=== PATIENT | male | born 1940 | race Caucasian/White ===

== ENCOUNTER 2017-06-29 19:14 | Emergency (ER) | payer MEDICARE, OTHER ==
[~2017-06-29] VITALS: Ht 175.3 cm; Wt 88.9 kg
--- OUTSIDE RECORDS SUMMARY | ~2017-06-29 | XMS | Clinical Summary ---
Demographics + + + | Address | [address] [place] [address] | | | [place] [address] | + + + | Home Phone | | + + + | Preferred Language | Unknown | + + + | Marital Status | | + + + | Rastafari Affiliation | 1077 | + + + | Race | Unknown | + + + | Ethnic Group | Unknown | + + + Author + + + | Author | [facility] | | | and [place] | + + + | Organization | [facility] | | | and [...] Team Providers + +------+ + | Care Ripsaw Grader Name | Role | Phone | + +------+ + | Stephane Thurman | PP | | + +------+ + Allergies + + + + + + | Active Allergy | Reactions | Severity | Noted | Comments | | | | | Date | | + + + + + + | Penicillins | Rash | Low | 08/16/19 | | | | | | 15 | | + + + + + + Current Medications + + +-------+---------+------+------+-------+ | Prescription | Sig. | Disp. | Refills | Star | End | Statu | | | | | | t | Date | s | | | | | | Date | | | + + +-------+---------+------+------+-------+ | clopidogrel | Take 75 mg by mouth | | | | | Activ | | (PLAVIX) 75 mg | Daily. | | | | | e | | tablet | | | | | | | + + +-------+---------+------+------+-------+ | omeprazole | Take 40 mg by mouth | | | | | Activ | | (PRILOSEC) 40 MG | every morning | | | | | e | | capsule | (before breakfast). | | | | | | + + +-------+---------+------+------+-------+ | metoprolol | Take 25 mg by mouth | | | | | Activ | | succinate | Daily. | | | | | e | | (TOPROL-XL) 25 mg 24 | | | | | | | | hr tablet | | | | | | | + + +-------+---------+------+------+-------+ | levothyroxine | Take 125 mcg by | | | | | Activ | | (SYNTHROID, | mouth every morning | | | | | e | | LEVOTHROID) 125 mcg | (before breakfast). | | | | | | | tablet | | | | | | | + + +-------+---------+------+------+-------+ | rosuvastatin | Take 20 mg by mouth | | | | | Activ | | (CRESTOR) 20 mg | nightly. | | | | | e | | tablet | | | | | | | + + +-------+---------+------+------+-------+ | aspirin 81 mg | Take 81 mg by mouth | | | | | Activ | | chewable tablet | Daily. | | | | | e | + + +-------+---------+------+------+-------+ | docusate-senna | Take 1 tablet by | | | | | Activ | | (SENOKOT-S) 50-8.6 | mouth Daily. | | | | | e | | mg per tablet | | | | | | | + + +-------+---------+------+------+-------+ Active Problems + + + | Problem | Noted Date | + + + | Prostate CA (HCC) | 08/16/2014 | + + + | Hypothyroid | 08/16/2014 | + + + | Abnormal radionuclide heart study | 04/05/2014 | + + + | Arteriosclerosis of coronary artery | 03/20/2014 | + + + + + | Overview: Overview: JERED of RCA in 1995, now with exertional | | chest discomfort. ECG is unchanged per Dr. Thurman. | + + Social History + + + [...] + +---------+ + | Alcohol Use | Drinks/We | oz/Week | Comments | | | ek | | | + + +---------+ + | Yes | | | less than weekly | + + +---------+ + + + + | Sex Assigned at | Date Recorded | | | | + + + | Not on file | | + + + Last Filed Vital Signs + + + + | Vital Sign | Reading | Time Taken | + + + + | Blood Pressure | 107/70 | 08/16/2014 1330 PDT | + + + + | Pulse | 65 | 08/16/2014 1330 PDT | + + + + | Temperature | 36.6 C (97.9 F) | 08/16/2014 1136 PDT | + + + + | Respiratory Rate | 16 | 08/16/2014 1330 PDT | + + + + | Oxygen Saturation | 92% | 08/16/2014 1330 PDT | + + + + | Inhaled Oxygen | - | - | | Concentration | | | + + + + | Weight | 87.5 kg (192 lb 14.4 | 08/16/2014 0822 PDT | | | oz) | | + + + + | Height | 175.3 cm (5' 9") | 08/16/2014821 PDT | + + + + | Body Mass Index | 28.49 | 08/16/2014821 PDT | + + + + Plan of Treatment + + + + + | Health Maintenance | Due Date | Last Done | Comments | + + + + + | Vaccine: | | | | | Dtap/Tdap/Td (1 - | 2 | | | | Tdap) | | | | + + + + + | COLON CANCER | | | | | SCREENING | 3 | | | | (COLONOSCOPY EVERY | | | | | 10 YEARS 50-75) | | | | + + + + + | Vaccine: | | | | | Pneumococcal 65+ | 8 | | | | High/Highest Risk (1 | | | | | of 2 - PCV13) | | | | + + + + + | Vaccine: Influenza | | | | | (Season Ended) | 8 | | | + + + + + Implants + +------+--------+ +--------+--------+--------+ | Implanted | Type | Area | Manufacture | Device | Expira | Model | | | | | r | | tion | / | | | | | | Identi | Date | Serial | | | | | | fier | | / Lot | + +------+--------+ +--------+--------+--------+ | Jeffery Sidhu [id number] | | Right: | [employer] | | 04/27/ | AR-260 | | - [id number]: Qty: 1 | | | - ARTX | | 2017 | 0SBS-5 | | on 08/16/2014 by Norbert, | | Should | | | | / | | Sam Schultz DO | | er | | | | /[id number] | | | | | | | | 76 | + +------+--------+ +--------+--------+--------+ | [place] [employer] 3.5x19 | | Right: | [employer] | | 03/27/ | AR-192 | | - [id number]: Qty: 1 | | | - ARTX | | 2016 | 6B / | | on 08/16/2014 by Norbert, | | Should | | | | /[id number] | | Sam Schultz DO | | er | | | | 07 | + +------+--------+ +--------+--------+--------+ Results Not on filefrom Last 3 Months Insurance + +--------+ +--------+ +---------+ | Payer | Benefi | Subscriber | Type | Phone | Address | | | t Plan | ID | | | | | | / | | | | | | | Group | | | | | + +--------+ +--------+ +---------+ | [employer] | TRANSA | xxxxxxxxx | Indemn | | | | INSURANCE | MERICA | | ity | | | | | LIFE | | | | | | | MS | | | | | + +--------+ +--------+ +---------+ | MEDICARE | MEDICA | xxxxxxxxxx | Medica | [phone] | | | RE | | re | [phone] | | | | PART A | | | | | | | AND B | | | | | + +--------+ +--------+ +---------+ + +--------+ +--------+ + + | Guarantor Name | Accoun | Relation to | Date | Phone | Billing Address | | | t Type | Patient | of | | | | | | | | | | + +--------+ +--------+ + + | JONATHAN LEVINE | Person | Self [birth year] | Home: | [address] [place] [address] | | | al/Behzad | | 1941 | [phone] | [place] | | | mitul | | | [phone] | + +--------+ +--------+ + +
--- OUTSIDE RECORDS SUMMARY | ~2017-06-29 | XMS | Clinical Summary ---
Demographics + + + | Address | [address] [place] [address] | | | [place] [address] | + + + | Home Phone | | + + + | Preferred Language | Unknown | + + + | Marital Status | | + + + | Hoahaoism Affiliation | 1077 | + + + | Race | Unknown | + + + | Ethnic Group | Unknown | + + + Author + + + | Author | [facility] | | | and [place] | + + + | Organization | [facility] | | | and Tono[place] [...] Team Providers + +------+ + | Care Immersion Metal Cleaner Name | Role | Phone | + [...] | + +------+--------+ +--------+--------+--------+ | Jeffery Sidhu [id number] | | Right: | [employer] | | 04/27/ | AR-260 | | - [id number]: Qty: 1 | | | - ARTX | | 2017 | 0SBS-5 | | on 08/16/2014 by Norbert, | | Should | | | | / | | Sam Schultz DO | | er | | | | /[id number] | | | | | | | | 76 | + +------+--------+ +--------+--------+--------+ | [place] [employer] 3.5x19 | | Right: | [employer] | | 03/27/ | AR-192 | | - [id number]: Qty: 1 | | | - ARTX | | 2016 | 6B / | | on 08/16/2014 by Norbert, | | Should | | | | /[id number] | | Sam Schultz DO | | [...] Self | [birth year] | Home: | [address] [place] [address] | | | al/Behzad | | 1941 | [phone] | [place] | | | mitul | | | [phone] | + +--------+ +--------+ + +
[~2017-06-29 19:14] MED LIST: ASPIRIN EC325 MG PO; CITRUCEL479 GM PO; CLOPIDOGREL75 MG PO; CRESTOR20 MG PO; LEVOTHYROXINE125 MCG PO; LISINOPRIL10 MG PO; METOPROLOL SUCC25 MG PO; MICARDIS HCT 81 EACH PO; OMEPRAZOLE40 MG PO; SENNA8.6 MG PO; VITAMIN B COMP1 EACH PO
[2017-06-29] MEDS ORDERED: NITROGLYCERIN0.4 MG SL (19:38)
[2017-06-29] MEDS ORDERED: RANITIDINE HCL150 MG PO (19:38)
[2017-06-29] MEDS ORDERED: PRAVASTATIN SOD40 MG PO (19:38)
== END 2017-06-29 23:00 | disposition home or self-care (01) ==
LOC: ED 19:14
DX: K52.9 Noninfective gastroenteritis and colitis, unspecified (principal); I10 Essential (primary) hypertension; Z87.891 Personal history of nicotine dependence; Z88.0 Allergy status to penicillin; Z79.899 Other long term (current) drug therapy; Z79.82 Long term (current) use of aspirin
CPT/HCPCS: 80053; 83690; 85025; 96374; 96375; 96376; 99283; J2405; J2550; J7030

== ENCOUNTER 2017-07-12 09:20 | Inpatient (IN) | payer MEDICARE, OTHER ==
[~2017-07-12] VITALS: Ht 175.3 cm; Wt 93.9 kg
[~2017-07-12 09:20] MED LIST changes: +NITROGLYCERIN0.4 MG SL; +PRAVASTATIN SOD40 MG PO; +RANITIDINE HCL150 MG PO
--- NOTE | 2017-07-12 12:50 | NUR ---
PT ARRIVED TO UNIT VIA STRETCHER FROM ED. PRESENT AT BEDSIDE. PT A&O X3. NO ACUTE DISTRESS NOTED. AFEBRILE. PT NOTED TO BE HYPOTENSIVE, 1L BOLUS LR ORDERED AND GIVEN. 2 GM MAG HUNG AT THIS TIME. UNIT INTAKE QUESTIONS ANSWERED BY PT. PT TO BE SENT TO PACU FOR SCOPE.
--- NOTE | 2017-07-12 13:30 | NUR ---
PT TAKEN BY BED TO DAY SUGERY AREA
--- NOTE | 2017-07-12 13:50 | EKG ---
[facility] [address] [facility] [place], [place] [address] Signed Sinus tachycardia with premature atrial complexes Right bundle branch block Abnormal ECG No previous ECGs available Confirmed by KRISTIAN IRENE MD ([id number]) on 07/12/2017 1:50:10 PM Electronically Signed By: KRISTIAN IRENE MD 07/12/17 1350 PATIENT NAME: ELI HONG Electrocardiogram DATE OF : 44 PHYSICIAN: KRISTIAN IRENE MD REPORT #: [id number] REPORT IS CONFIDENTIAL AND NOT TO BE RELEASED WITHOUT AUTHORIZATION
--- NOTE | 2017-07-12 15:52 | NUR ---
07/12/17 1552 Alexandra Pike PATIENT ARRIVED TO PACU. PATIENT AWAKE, 4L02 FOR 97% SATS. IV MAG WITH LR INFUSING TO IV IN LEFT ARM. IV PROTONIX INFUSING TO IV IN RIGHT ARM.
--- NOTE | 2017-07-12 19:24 | NUR ---
PT UP TO BSC WITH MINIMAL ASSIST. HAD LARGE BLACK TARRY SEMI SOFT STOOL, RETURNED TO BED AND RESTING ON RIGHT SIDE.
--- NOTE | 2017-07-12 19:45 | NUR ---
ASSISTED PATIENT TO BEDSIDE COMODE. NO COMPLAINTS OF DIZZINESS. NOW RESTING IN BED, BREATHING IS EVEN AND UNLABORED. DENIES FURTHER NEEDS AT THIS TIME. CALL LIGHT WITHIN REACH, FAMILY AT BEDSIDE.
--- NOTE | 2017-07-12 21:57 | NUR ---
ASSISTED PATIENT TO BEDSIDE COMODE WITH SBA. NOW RESTING IN BED, BREATHING IS EVEN AND UNLABORED. DENIES FUTHER NEEDS AT THIS TIME. CALL LIGHT WITHIN REACH.
--- NOTE | 2017-07-12 23:16 | NUR ---
UPT TO BSC TO VOID. VOIDED IN COMMODE AND ON FLOOR. DENIES DIZZYNESS.
--- NOTE | 2017-07-13 01:00 | NUR ---
UPDATED DR. VERDUGO REGARDING PATIENT'S H&H RESULTS, RECEIVED ORDER FOR ONE UNIT PRBC.
--- NOTE | 2017-07-13 02:00 | NUR ---
BLOOD PRODUCTS STARTED WITH SECOND RN VERIFICATION.
--- NOTE | 2017-07-13 02:15 | NUR ---
VITALS RE-CHECKED, VITALS ARE STABLE, NO SIGNS OF BLOOD PRODUCT ADMINISTRATION REACTION. PATIENT RESTING IN BED, BREATHING IS EVEN AND UNLABORED. DENIES NEEDS AT THIS TIME. CALL LIGHT WITHIN REACH.
--- NOTE | 2017-07-13 04:15 | NUR ---
BLOOD PRODUCT DONE, PATIENT RESTING IN BED, BREATHING IS EVEN AND UNLABORED. DENIES NEEDS AT THIS TIME. CALL LIGHT WITHIN REACH.
--- NOTE | 2017-07-13 05:38 | NUR ---
ASSISTED PATIENT USE URINAL AT BEDSIDE. DENIES FURTHER NEEDS. NOW RESTING IN BED, BREATHING IS EVEN AND UNLABORED. CALL LIGHT WITHIN REACH.
--- NOTE | 2017-07-13 08:24 | NUR ---
PT AWAKE, RESTING IN BED, STOOD TO VOID 300 MLS CLEAR YELLOW URINE. ASSESSMENT COMPLETED. TRANSFERRED TO CHAIR SBP DROPPED TO 70, HR 103 - NO C/O. PT RETURNED TO BED BP 92/50, HR 99. PT RESTING IN BED WATCHING TV. AM MEDS GIVEN
--- NOTE | 2017-07-13 08:40 | NUR ---
PT STATES "I DON'T FEEL GOOD". HOB FLAT AND SBP NOW 90. Fang BLANTON RN, Fang YOU RN, Antolin BURGESSA AND DR. VERDUGO HERE. NS BOLUS STARTED. PT DIAPHORETIC AND PLACED IN [place]G POSITION. PT STATES FEELING BETTER. LAB HERE FOR H & H DRAW.
--- NOTE | 2017-07-13 11:09 | NUR ---
0930 PRE BLOOD TRANSFUSION BP COMPLETED AND FIRST UNIT PRBC STARTED. PT ORLY FAIR. BLOOD INCREASED TO COMPLETE IN ONE HOUR. BLOOD PRESSURES TAKEN Q 10 MINS. SYSTOLIC PRESSURES 70 - 80'S. DR. GORMAN IN TO ASSESS PT. AND CONSENT SIGNED BY . ONE UNIT FFP STARTED AND SURGERY PERSONEL HERE, PT TRANSFERRED TO [facility] WITH 3 PERSON ASSIST AND TO OR FOR UPPER SCOPE.
--- NOTE | 2017-07-13 12:39 | NUR ---
07/13/17 1239 Camille Shanks PATIENT ARRIVED FROM OR. UNIT OF BLOOD INFUSING. 6L 02 ON FOR 100% SATS. PATIENT DENIES PAIN OR NAUSEA.
--- NOTE | 2017-07-13 12:56 | CONS ---
[facility] [address] [place], [place] [address] Signed DATE OF CONSULTATION: 07/12/2017 PROBLEM: Melena with hypotension. HISTORY: This 76-year-old white man is well known to me from the past having undergone colonoscopy previously. In the past 2-3 days, he has had dark black tarry stool. He presented to the emergency room where he had persistent blood tarry stool per rectum and was evaluated and found to have hematocrit of 24.9. He has had no associated hematemesis or abdominal pain. He does note a prior history of a "peptic ulcer" at age 20, number of years ago obviously manifesting as hematemesis. He takes no medications for ulcer treatment and has no underlying known reflux problem, though I do note that he has been taking Zantac 150 mg p.o. daily. His other medicines include aspirin, Synthroid, lisinopril, metoprolol, nitroglycerin sublingual for chest pain, and pravastatin. He has no family history of esophageal or stomach cancer and no family history of colon cancer that he is aware of. He is known to me from the past for colonoscopy last having colonoscopy on March 10, 2016, for rectal bleeding and Plavix use related to coronary stenting in the previous year. He only showed diverticular changes at that time and no evidence of hemorrhoids and 4 very small polyps. He denies any dysphagia and he has had no hematemesis as previously described. His course in the emergency room have shown him to have hypotension at one time with a pressure of 60, though he presented with normal vital signs and not hypotensive. The patient since undergone transfusion of 2 units of packed red cells and crystalloid solution has been given. Notes were reviewed from Dr. Irene confirming his underlying history of coronary artery disease and stent use as well as daily use of aspirin 81 mg daily. It is also noted that about 2 weeks ago he had nausea and upset stomach, for which he took Pepto-Bismol. Dark stools were noted at that time, possibly related to the Pepto-Bismol in hindsite, perhaps not. PHYSICAL EXAMINATION: GENERAL: Pleasant white man, who does not look to be in severe distress and has no diaphoresis. He is alert and oriented, accompanied by his . NECK: His trachea is midline. Electronically Signed By: MARGARITA GORMAN MD 07/13/17 1256 PATIENT NAME: ELI HONG CONSULTATION DATE OF : 44 REPORT #: [id number] PHYSICIAN: MARGARITA GORMAN MD PCP: ROSS QUARLES MD REPORT IS CONFIDENTIAL AND NOT TO BE RELEASED WITHOUT AUTHORIZATION [facility] [address] [place], [place] [address] Signed CHEST: Clear. HEART: Regular without murmur. Pulse is only 88. His systolic pressure is 95. O2 saturation is 100% on 2 L nasal cannula. ABDOMEN: Soft and somewhat obese, but easily palpated. There is no ascites. There is no tenderness. There is no mass. LABORATORY DATA: Show initial hematocrit of 24.9, white count of 14.3, and platelets 382,000. Coag studies show an INR of 0.9. Chem profile shows a BUN elevated at 71, creatinine of 1.18, glucose is 157. Lactic acid is 1.9. Liver enzymes essentially normal. ASSESSMENT: It is presumed he may have an upper gastrointestinal source of bleeding due to the melena that he has demonstrated. He did have a hypotensive episode and has been transfused to at least 1 unit and possibly to have been given in addition to crystalloid solution. I have recommended an expedient upper endoscopy to better characterize the problem specifically to assess for peptic bleeding. If upper endoscopy is negative, then of course, this may represent bleeding from his diverticular disease, which was well known. The risks of bleeding, infection, cardiopulmonary complications, need for open procedure, and so forth were reviewed in detail. He understands and wished to proceed. We will plan for expedient upper endoscopy within the next hour or so. The patient has yet to transfer from the emergency room to the intensive care unit where he is intended to go. MD KLAUS Delacruz/MODL /[id number] cc: MD Ross Byrd MD Copies: KRISTIAN IRENE MD Electronically Signed By: MARGARITA GORMAN MD 07/13/17 1256 PATIENT NAME: ELI HONG CONSULTATION DATE OF : 44 REPORT #: [id number] PHYSICIAN: MARGARITA GORMAN MD PCP: ROSS QUARLES MD REPORT IS CONFIDENTIAL AND NOT TO BE RELEASED WITHOUT AUTHORIZATION [address] [address] Signed ROSS QUARLES MD ~ Electronically Signed By: MARGARITA GORMAN MD 07/13/17 1256 PATIENT NAME: ELI HONG CONSULTATION DATE OF : 44 REPORT #: [id number] PHYSICIAN: MARGARITA GORMAN MD PCP: ROSS QUARLES MD REPORT IS CONFIDENTIAL AND NOT TO BE RELEASED WITHOUT AUTHORIZATION
--- NOTE | 2017-07-13 12:56 | OR ---
[facility] [address] [place], [place] [address] Signed DATE OF OPERATION: 07/12/2017 SURGEON: Margarita Gorman MD PREOPERATIVE DIAGNOSES: 1. Melena, probable upper gastrointestinal bleeding. 2. Distant history of peptic ulcer (age 20). POSTOPERATIVE DIAGNOSIS: 1. Bleeding at 2nd portion of duodenum erosive ulcer. 2. Healing large bulbar ulcer (brumfield white base). 3. Bleeding mid gastric erosion. PROCEDURE: 1. Esophagogastroduodenoscopy with control of hemorrhage (epinephrine injection technique and hemoclip application x2 areas). 2. Biopsy of stomach for CLOtest. ANESTHESIA: Propofol infusion, Minoo Ramos CRNA INDICATION: This 76-year-old white man is a patient of Dr. Mcpherson and Dr. Lewis, and well known to me from the past having undergone colonoscopy. For the past few days, he has had increasing dark stools, and presents to the emergency room. He is noted to have hypotension at one point, a systolic pressure of 60. He has been transfused with blood. He had dark melena noted in the past 48 hours, but no abdominal pain per se. He has taken some nonsteroidal several weeks ago, but not excessively so. He is known to have had a bleeding ulcer at age 20 as manifested by hematemesis. He has no associated dysphagia. No family history of stomach, or esophageal cancer, and is admitted to undergo emergent upper endoscopy to assess for bleeding and control of it if capable. He understands risks of bleeding, infection, perforation of course, rebleeding and wished to proceed. FINDINGS: The esophagus and stomach proper showed no sign of blood. There was some fresh bleeding in the mid stomach near rugal folds which was a superficial erosion that was bleeding, and it was controlled with hemoclips. In the duodenum; however, there was marked inflammatory change. There was a large ulcer of the duodenal bulb with a brumfield white base which was healing with no sign of bleeding. However, in the 2nd portion was an Electronically Signed By: MARGARITA GORMAN MD 07/13/17 1256 PATIENT NAME: ELI HONG OPERATIVE REPORT DATE OF : 44 REPORT #: [id number] PHYSICIAN: MARGARITA GORMAN MD PCP: ROSS LEWIS MD REPORT IS CONFIDENTIAL AND NOT TO BE RELEASED WITHOUT AUTHORIZATION [facility] [address] [place], [place] [address] Signed area of visible vessel within the rows of non deep ulceration. This was controlled with hemoclips, and epinephrine solution injection. At conclusion, good hemostasis was noted in both the gastric and duodenal lesions. PROCEDURE: The patient was brought to the endoscopy suite and placed in lateral decubitus position, and given intravenous sedation with propofol infusional technique. He was in the left lateral position, and bite block was placed. An Olympus video upper endoscope was passed in the hypopharynx. The vocal cords were normal. Scope was passed in the esophagus. Throughout its length it was normal. Scope was passed through the stomach, and there was a small area of fresh bleeding, which did not appear to be the main source of the problem, and so the scope was passed to the antrum. The flexibility of the scope was prohibitive to passage into the duodenal bulb for some reason. The scope was changed out to a more frey upper endoscope. Once again, the scope was passed under direct visualization ultimately to the pylorus, which allowed for passage into the duodenum. Clearly, there was blood there. There was no sign of clot, however. The scope was passed ultimately to the 3rd portion where some fresh blood was noted to be oozing, and upon withdrawal of scope in the 2nd portion, essentially in the region of the ampulla, but not near it per se was an area that was heaped up and looked actually like a vessel in the middle of the lumen. With irrigation, it seemed not to go away. Hemoclips were applied to the base of this lesion, which eventually flaked off and this represented more likely blood and clot associated with a vessel from an erosion there. With the clot/vessel lesion now freed, one could see ongoing oozing of fresh arterial blood. This area was ultimately clipped with a hemoclip to better characterize it. An epinephrine solution was used with sclerotherapy needle to inject around the base of this erosive ulcer, and this showed a white blanching of the submucosa as expected allowing for application of additional hemoclip with good hemostatic effect. The scope was withdrawn, noting the bulbar ulcer, which had a brumfield white base and was quite large in comparison, but without stigmata of recent bleeding. The scope was withdrawn to the stomach and biopsies taken for CLOtest. The lesion initially noted in the midportion of the stomach appeared to be oozing, and it actually appeared to be a bleeding erosive lesion. It did not appear to have portal gastropathy, though that is a more finding for such lesions. Two hemoclips were applied to this area with good hemostatic effect. Photographs were taken throughout. Retroflex view was undertaken showing the GE junction to be essentially normal. Scope was withdrawn. The esophagus exam once again found to be normal. The patient was then taken to recovery room in good condition. CONCLUDING DIAGNOSES: Electronically Signed By: MARGARITA GORMAN MD 07/13/17 1256 PATIENT NAME: ELI HONG OPERATIVE REPORT DATE OF : 44 REPORT #: [id number] PHYSICIAN: MARGARITA GORMAN MD PCP: ROSS LEWIS MD REPORT IS CONFIDENTIAL AND NOT TO BE RELEASED WITHOUT AUTHORIZATION [facility] [address] [place], [place] [address] Signed 1. Ongoing gastrointestinal bleeding from duodenal erosion controlled with hemoclips and epinephrine. 2. Small bleeding lesion in mid stomach secured with hemoclips. 3. Large duodenal bulbar ulcer with brumfield white base and no active bleeding. PLAN: He will be initiated with Carafate, as well as continued PPI medication and close monitoring. There was some risk of rebleeding of course, but I believe he has good hemostatic control at this point. MD KLAUS Delacruz/YAHAIRAL /[id number] cc: Dr. Mcpherson. Dr. Raya Davidson. [facility] Ross Lewis MD Copies: ROSS LEWIS MD ~ Electronically Signed By: MARGARITA GORMAN MD 07/13/17 1256 PATIENT NAME: ELI HONG OPERATIVE REPORT DATE OF : 44 REPORT #: [id number] PHYSICIAN: MARGARITA GORMAN MD PCP: ROSS LEWIS MD REPORT IS CONFIDENTIAL AND NOT TO BE RELEASED WITHOUT AUTHORIZATION
--- NOTE | 2017-07-13 13:51 | NUR ---
CAME TO CHECK ON PT-IN HAVING SCOPE. WILL RETURN LATER FOLLOWING SCOPE
--- NOTE | 2017-07-13 14:37 | NUR ---
PT ARRIVED FROM PACU VIA STRETCHER TO ROOM 128, TRANSFERRED TO BED WITH SLIDER BOARD AND 4 PERSON ASSIST. ART LINE IN PLACE ZEROED WITH GOOD WAVE FORM. BP 103/56. 02 ON AT 3L PER NC, SATS 95-100%. PRBC STARTED AT 1345 AND CARAFATE GIVEN PER ORDER. PROTONIX GTT STARTED.
--- NOTE | 2017-07-13 15:15 | NUR ---
ASSESSMENT COMPLETED, 2ND UNIT PRBC STARTED. PT SLEEPING WELL, AWAKENS TO VOICE OR TOUCH. PT VOIDED 325 MLS CLEAR YELLOW URINE. ART LINE REMAINS IN PLACE BP 117/58, HR 89 SATS ON 3L 100%. PT RESTING ON RIGHT SIDE. PT HAS "SPASMS IN HIS THROAT" WHICH IS NOT UNCOMMON PER HIS . SHE STATES HE HAD POLIO A CHILD AND OCCASIONALY WHEN HE IS SLEEPING HE HAS A THROAT SPASM. PT RESTING AT THIS TIME. APPEARS COMFORTABLE.
--- NOTE | 2017-07-13 15:47 | NUR ---
DR. GORMAN IN TO ASSESS PT. PT AWAKE/ALERT, VITAL SIGNS IMPROVED. ART LINE SHOWS 120/59 HR 91, RESP 19. SATS 99% ON 3L PER NC. PT HAS GOOD COLOR AND STATES FEELING BETTER. WATCHING TV. FAMILYL IN ROOM.
--- NOTE | 2017-07-13 16:58 | NUR ---
ASSESSMENT COMPLETED, PT RESTING WELL AND ORLY ICE CHIPS. VITAL SIGNS WITHIN NORMAL LIMITS. IN ROOM
--- NOTE | 2017-07-13 17:10 | NUR ---
DR. GORMAN UPDATED ON LABS - H & H (9.2 & 26.8).
[2017-07-13] MEDS ORDERED: OMEPRAZOLE40 MG PO (17:22)
[2017-07-13] MEDS ORDERED: METOPROLOL SUCC25 MG PO (17:22)
--- NOTE | 2017-07-13 17:23 | NUR ---
MED REC COMPLETE
--- NOTE | 2017-07-13 18:22 | NUR ---
PT USING URINAL VOIDING 300 MLS CLEAR YELLOW URINE, ALSO USED BEDPAN BUT ONLY PASSING FLATUS - NO BM.
--- NOTE | 2017-07-13 19:00 | NUR ---
RECEIVED REPORT FROM RN. PATIENT IS RESTING IN BED, BREATHING IS EVEN AND UNLABORED. DENIES NEEDS AT THIS TIME. CALL LIGHT WITHIN REACH, ALL ORDERS IN PLACE.
--- NOTE | 2017-07-13 20:00 | NUR ---
PATIENT RESTING IN BED, BREATHING IS EVEN AND UNLABORED. VITALS ARE STABLE, PATIENT DENIES NEEDS AT THIS TIME. ASSESSMENT DONE. ARTERIAL LINE SITE INTACT, NO SIGNS OF INFLAMMATION OR SWELLING, ZEROED ON MONITOR, APPROPRIATE WAVE FORM ON MONITOR, FLUSHED WITH NORMAL SALINE. ALL IV LINES INTACT, IV FLUIDS INFUSING, PROTONIX GTT INTACT. CURRENTLY ON 3L O2 VIA NC, TITRATED O2 OFF TO ROOM AIR, WILL CONTINUE TO MONITOR. CALL LIGHT WITHIN REACH.
--- NOTE | 2017-07-13 20:46 | NUR ---
STARTED ONE UNIT OF FFP PER DR. VERDUGO'S ORDER. VITALS ARE STABLE, PATIENT RESTING COMFORTABLY IN BED. DENIES NEEDS AT THIS TIME. CALL LIGHT WITHIN REACH.
--- NOTE | 2017-07-13 20:50 | NUR ---
UNIT OF FFP DONE, PATIENT IS RESTING IN BED, BREATHING IS EVEN AND UNLABORED. DENIES NEEDS AT THIS TIME. VITALS ARE STABLE, CALL LIGHT WITHIN REACH.
--- NOTE | 2017-07-13 21:01 | NUR ---
PATIENT RESTING COMFORTABLY IN BED, BREATHING IS EVEN AND UNLABORED. VITALS ARE STABLE, NO ACUTE CHANGES. DENIES NEEDS AT THIS TIME. CALL LIGHT WITHIN REACH.
--- NOTE | 2017-07-13 22:01 | NUR ---
PATIENT RESTING IN BED, BREATHING IS EVEN AND UNLABORED. POST FFP VITALS DONE, NO ACUTE CHANGES. PATIENT DENIES NEEDS AT THIS TIME. CALL LIGHT WITHIN REACH, ALL ORDERS IN PLACE.
--- NOTE | 2017-07-13 23:50 | NUR ---
PATIENT RESTING IN BED, BREATHING IS EVEN AND UNLABORED. DENIES NEEDS AT THIS TIME. ASSESSMENT DONE. ARTERIAL LINE INTACT, NO SIGNS OF INFLAMMATION OR SWELLING, DRESSING INTACT. CALL LIGHT WITHIN REACH, ALL ORDERS IN PLACE.
--- NOTE | 2017-07-14 01:29 | NUR ---
PATIENT RESTING IN BED, BREATHING IS EVEN AND UNLABORED. DENIES NEEDS AT THIS TIME. CALL LIGHT WITHIN REACH, ALL ORDERS IN PLACE.
--- NOTE | 2017-07-14 02:00 | NUR ---
PATIENT RESTING IN BED, BREATHING IS EVEN AND UNLABORED. VITALS STABLE, FLACC SCORE OF 0. CALL LIGHT WITHIN REACH, ALL ORDERS IN PLACE.
--- NOTE | 2017-07-14 04:10 | NUR ---
PATIENT RESTING IN BED, BREATHING IS EVEN AND UNLABORED. VITALS ARE STABLE, APPEARS TO BE ASLEEP. FLACC SCORE OF 0. CALL LIGHT WITHIN REACH, ALL ORDERS IN PLACE.
--- NOTE | 2017-07-14 04:55 | NUR ---
PATIENT STATES "I AM NOT FEELING VERY GOOD ALL OF A SUDDEN." PATIENT REPORTS FEELING "CLAMMY." VITAL SIGNS ARRE STABLE WITH BP OF 123/66, PULSE IS 91, TEMPERATURE OF 98.2. PATIENT REPOTS 3/10 PAIN IN RLQ OF ABD AND STATES "IT FEELS LIKE CRAMPING GAS PAIN." ALSO REPORTS NAUSEA. PRN ZOFRAN GIVEN, ASSISTED PATIENT WITH REPOSITIONING. ABD IS MILDLY DISTENDED, NO ACUTE CHANGES FROM BEGINNING OF SHIFT, BOWEL TONES ARE ACTIVE. ONCE PATIENT REPOSITIONED HE STATES "I AM FEELING A LITTLE BETTER NOW." WILL CONTINUE TO MONITOR PATIENT CLOSELY. DENIES FURTHER NEEDS. CALL LIGHT WITHIN REACH, ALL ORDERS IN PLACE.
--- NOTE | 2017-07-14 04:55 | NUR ---
ARTERIAL LINE ASSESSED, DRESSING INTACT, NO SIGNS OF INFLAMMATION OR SWELLING, APPROPRIATE WAVE FORM ON MONITOR.
--- NOTE | 2017-07-14 06:38 | NUR ---
ASSISTED PATIENT TO BEDSIDE COMODE, TOLERATED WELL WITHOUT COMPLAINTS OF FEELING LIGHTHEADED. PATIENT CONINUES TO BE UNABLE TO PASS STOOL. NOW RESTING IN BED, BREATHING IS EVEN AND UNLABORED. DENIES FURTHER NEEDS AT THIS TIME. VITALS STABLE. CALL LIGHT WITHIN REACH.
--- NOTE | 2017-07-14 07:40 | NUR ---
PT RESTING ON EDGE OF BED. C/O ABD PAIN 3/10 AND NAUSEA, ZOFRAN GIVEN AT 0430. PT HAS ART LINE IN PLACE AT THIS TIME. SPO2 97% ON ROOM AIR. D5LR AT 125 ML/HR AND PROTONIX AT 27 ML/HR. PT REQUESTING TO REST, ASSISTED BACK TO BED.
--- NOTE | 2017-07-14 08:08 | NUR ---
DR. VERDUGO AT BEDSIDE ASSESSING PT AND UPDATING PLAN OF CARE. ABD DISCOMFORT DISSCUSSED WITH PROVIDER. EDUCATION PROVIDED ON POSSIBLE CAUSES OF BLOATING AND DISCOMFORT. PT OFFERRED MEDICATION FOR PAIN, DECLINED AT THIS TIME. ART LINE RECALIBRATED AT THIS TIME.
--- NOTE | 2017-07-14 09:57 | NUR ---
DR. GORMAN AT [facility] UPDATING PLAN OF CARE. PROVIDER DISCUSSED PROCEDURE AND MEDICATIONS. NEW DIETARY ORDER FOR FULLS.
--- NOTE | 2017-07-14 11:10 | NUR ---
RESTING WITH BIPAP ON. PRESSURES I=12,E=8, FIO2=28.
--- NOTE | 2017-07-14 12:10 | NUR ---
SITTING AT BEDSIDE TO EAT LUNCH. O2 NOW 2L NC WHEN OFF BIPAP.
--- NOTE | 2017-07-14 12:15 | NUR ---
PT REMAINS TACHYCARDIC, PHONE CALL TO DR. VERDUGO AND DR. GORMAN TO NOTIFY OF PT'S CONDITION. ORDER RC'D FOR STAT CBC, REPEATED ORDER BACK, CBC DRAWN AND SENT TO LAB. DR. VERDUGO AT BEDSIDE TO ASSESS PT, RECOMMENDATION TO CONTINUE BEDREST. WILL AWAIT LAB RESULTS AND WILL CONTINUE TO MONITOR PT.
--- NOTE | 2017-07-14 12:40 | NUR ---
BACK ON BIPAP, SAME SETTINGS. SPONGE BATH GIVEN EARLIER WHEN SITTING ON COMMODE. PATIENT STATES SHE MIGHT TAKE A SHOWER LATER. IS WITH EXTREME SHORTNESS OF BREATH WHEN RETURNS TO BED FROM COMMODE OR SITTING AT BEDSIDE.
--- NOTE | 2017-07-14 12:51 | OR ---
[facility] [address] [place], [place] [address] Signed DATE OF OPERATION: 07/13/2017 SURGEON: Margarita Gorman MD PREOPERATIVE DIAGNOSIS: Recurrent duodenal bleeding. POSTOPERATIVE DIAGNOSIS: New bleeding site 2nd portion of duodenum, active arterial hemorrhage. PROCEDURE: Esophagogastroduodenoscopy with cautery controlled GI bleeding. ANESTHESIA: Intravenous sedation; Minoo Ramos CRNA. INDICATION: This 76-year-old white man was admitted by Dr. Irene on 07/12/2017 with significant melena and decreased hematocrit. He underwent upper endoscopy by me yesterday, where he was found to have a healing ulcer in the pyloric channel, which was large with a brumfield white base, but in the 2nd portion of the duodenum, an area of oozing and bleeding for which hemoclip application was successful in controlling bleeding. Additionally, he had a small bleeding area in the stomach, which was clipped. He was treated with Carafate solution, PPI medication and H2 mayela. Last night, did have some episodes of decreased blood pressure, but no actual melena or hematemesis. This morning, his hematocrit dropped from 24 to 20 and he was diaphoretic and at one point with a systolic pressure of 60. Clearly, he has had ongoing bleeding or recurrent bleeding and on that basis emergency repeat endoscopy is recommended. The risks of bleeding, infection, and so forth was reviewed with him and his . They understand and wished to proceed. Additionally, if control was not forthcoming with endoscopic approach, permission was granted to convert to open operation for pyloromyotomy and over-sew of bleeding as necessary. FINDINGS: There is no blood in the stomach. The pylorus was as before with a healing ulcer, well positioned and without sign of bleeding. In the 2nd portion of the duodenum, the previous hemoclip was noted to be intact, but proximal to that was a separate area that clearly had a bit of visible clot and obvious site of hemorrhage. With manipulation, one could see pulsatile arterial bleeding. It was ultimately controlled with cautery. Electronically Signed By: MARGARITA GORMAN MD 07/14/17 1251 PATIENT NAME: ELI HONG OPERATIVE REPORT DATE OF : 44 REPORT #: [id number] PHYSICIAN: MARGARITA GORMAN MD PCP: LIZANDRO QUARLES MD REPORT IS CONFIDENTIAL AND NOT TO BE RELEASED WITHOUT AUTHORIZATION [facility] [address] [place], [place] [address] Signed Attempts at epinephrine injection for initial control were partially successful. Application of hemoclips was not possible despite multiple attempts to do so based on the angulation of the clip in relation to the ulcer bed itself. Complete control was secured with electrocautery. The visible vessel was quite obvious. DESCRIPTION OF PROCEDURE: The patient was brought to the operating room instead of the endoscopy suite on the possibility of conversion to open operation may be necessary. In the lateral position, he was noted to have a large melenic stool. He was given intravenous sedation with propofol infusion. A bite block was placed after Hurricaine spray hypopharyngeal anesthesia secured. An Olympus video upper endoscope was passed in the hypopharynx and easily into the esophagus and down to the stomach. There was no blood within the stomach or site of bleeding there. The scope was positioned above the pylorus passed into it, where in the pyloric channel was a brumfield white ulcer base as previously noted. The scope was then passed a bit forward and fresh blood was noted. There was no sign of dark clot. Irrigation was undertaken. The area of previous security of bleeding with hemoclip was noted. Proximal to this, a centimeter or so was another area which had clot. This was irrigated and clearly this was the area of most recent bleeding. I believe it to be separate, but possibly the same arterial branch for bleeding. With irrigation of the clot from the area, pulsatile arterial bleeding was noted in spurts confirming this as a bleeding site. Attempts were made to secure this with a hemoclip, but this was quite unsuccessful and therefore, epinephrine solution was injected nearby the area, which did seem to staunch the bleeding somewhat. Attempts again were made with hemoclips, but were unsuccessful. On that basis, cautery was then applied to the area and required a higher setting of 60 rather than 30 to allow for complete security of the site. Irrigation was undertaken and the charred site was quite obviously hemostatic at that point. The vessel could be easily identified. Attempts were made to apply a clip to the charred arterial remnant, but again it was simply not successful. Given that hemostasis has been assured, no further attempts were made to do anything to the site at this point. The scope was then carefully withdrawn. Air aspirated from the stomach. He was taken to the recovery room in stable condition. Margarita Gorman MD Electronically Signed By: MARGARITA GORMAN MD 07/14/17 1251 PATIENT NAME: ELI HONG OPERATIVE REPORT DATE OF : 44 REPORT #: [id number] PHYSICIAN: MARGARITA GORMAN MD PCP: LIZANDRO QUARLES MD REPORT IS CONFIDENTIAL AND NOT TO BE RELEASED WITHOUT AUTHORIZATION [facility] [address] [place] [place] [address] Signed /MODL /[id number] cc: MD Rhianna Byrd MD Copies: KRISTIAN IRENE MD, CYNTHIA MD ~ Electronically Signed By: MARGARITA GORMAN MD 07/14/17 1251 PATIENT NAME: ELI HONG OPERATIVE REPORT DATE OF : 44 REPORT #: [id number] PHYSICIAN: MARGARITA GORMAN MD PCP: LIZANDRO QUARLES MD REPORT IS CONFIDENTIAL AND NOT TO BE RELEASED WITHOUT AUTHORIZATION
--- NOTE | 2017-07-14 12:56 | NUR ---
DR. GORMAN IN TO SEE PATIENT AT THIS TIME. CBC PENDING. PT REMAINS VERY PALE AND TACHYCARDIC IN THE 120s WHILE LYING IN BED. LAST BP 98/63 (71) AND ART LINE READING 108/52 (68). PT'S RYDER REMAINS AT BEDSIDE AND VERY ATTENTIVE TO PATIENT. PT'S PAIN IS IN HIS RIGHT LOWER QUADRANT. ABDOMEN IS ROUND AND MODERATELY DISTENDED. CONTINUE TO MONITOR CLOSELY.
--- NOTE | 2017-07-14 13:14 | NUR ---
PATIENT TO GO DOWN FOR CT SCAN OF ABDOMEN WITH IV CONTRAST. CONTINUE TO MONITOR. H/H 7.7/22.0.
--- NOTE | 2017-07-14 13:33 | NUR ---
CALL TO IMAGING TO CHECK THE STATUS ON CT, THE TECH STATED SHE IS WAITING TO TALK TO RADIOLOGIST TO DETERMINE HOW THE STUDY NEEDS TO BE DONE. I EXPLAINED THAT THIS STUDY NEEDS TO BE DONE SHAKILA, AND IF SHE NEEDS TO INTERRUPT A STUDY TO TALK TO RADIOLOGIST THEN THAT IS WHAT NEEDS TO HAPPEN. TORIN STATES SHE WILL GET BACK TO US.
--- NOTE | 2017-07-14 13:45 | NUR ---
PT IN BED WITH FAMILY IN . HE WELCOMED ME, WITH A GRIMACE AND STATED HIS PAIN IS ONLY A 3. BY HIS APPEARANCE HE IS IN MUCH MORE PAIN. HE DID STATE THAT PAIN WAS BETTER THAN IT HAD BEEN. STAFF IN TO CARE FOR PT, EXTENDED A BLESSING WILL FOLLOW NEEDED
--- NOTE | 2017-07-14 14:15 | NUR ---
PT RETURNED TO UNIT FROM CT VIA BED. P/C RC'D FROM DR. GORMAN REGARDING CT RESULTS, PERF BOWEL SUSPECTED, ABX ORDERED, ORDER RC'D TO PREPARE PT FOR SURGERY. PT'S IN ROOM. DR. GORMAN IN UNIT SHORTLY AFTER TO DISCUSS SURGERY WITH PT AND PT'S .
--- NOTE | 2017-07-14 14:30 | NUR ---
AWAKE, OFF BIPAP. NOW ON 02 2L NC. HAS BEEN ON CPAP/BIPAP FOR APPROX 4.5 HRS TOTAL TIME SO FAR TODAY.
--- NOTE | 2017-07-14 14:35 | NUR ---
ENTRY LEVEL MANAGEMENT AT BEDSIDE DISCUSSING PROCEDURE WITH PT AND PT'S . LR ON STRAIGHT TUBING, FLAGYL, MEROPENEM STARTED. PT'S OFF UNIT AND TO OR AT THIS TIME.
--- NOTE | 2017-07-14 15:00 | NUR ---
TEMP-100.9. WILL GIVE MOTRIN .
--- NOTE | 2017-07-14 15:15 | NUR ---
BACK ON BIPAP AFTER MOTRIN GIVEN.
--- NOTE | 2017-07-14 19:15 | NUR ---
Levophed - drip started at 10mcg
--- NOTE | 2017-07-14 19:21 | NUR ---
LEVOPHED STARTED AT 10 MCG/MIN AT 1915. OSTOMY NURSE, RT, AND CONTINUUM OF CARE MANAGER IN ROOM WITH THIS RN. STAT CHEST XRAY ORDERED AND BEING PERFORMED AT THIS TIME.
--- NOTE | 2017-07-14 19:40 | NUR ---
levophed - drip titrated to 12.5mcg
--- NOTE | 2017-07-14 19:44 | NUR ---
Levophed - titrated to 15mcg
--- NOTE | 2017-07-14 20:03 | NUR ---
Levophed - drip titrated to 20mcg
--- NOTE | 2017-07-14 20:20 | NUR ---
Initiated 1L bolus
--- NOTE | 2017-07-14 20:30 | NUR ---
07/14/172029 Purvi Francisco 1920: PATIENT ARRIVES TO PACU AND EXPIRATORY MOANS ARE HEARD. PT IS UNABLE TO REPORT PAIN @ THIS TIME. JAW LIFT IS COMPLETE TO FACILITATE OXYGENATION. YUDY 1929: OXYGEN INCREASED TO 10L VIA MASK. UNABLE TO GET A GOOD SATURATION PLETH. ATTEMPT TO PLACE PROBE ON FOREHEAD, EAR AND FINGER. LE 1934 OXYGEN DECREASED TO 8L VIA MASK. OXYGEN SATURATION IS 100% ON 10L VIA MASK. 1949 OXYGEN DECREASED TO 6L VIA OXYMASK. 1954: OXYGEN DECREASED TO 4L VIA OXYMASK. 1999: OXYGEN DECREASED TO 2L VIA OXYMASK. PATIENT CONTINUES TO MOAN WITH EXPIRATORY BREATH. PATIENT REPORTS "I HURT". PRN FOR PAIN HELD AT THIS TIME D/T BLOOD PRESSURE. LEVOPHED TITRATING TO SUPPORT MAP > 60.
--- NOTE | 2017-07-14 21:31 | NUR ---
Levophed - drip titrated to 15mcg
--- NOTE | 2017-07-14 23:29 | NUR ---
Levophed - drip titrated to 12.5mcg
--- NOTE | 2017-07-15 00:30 | NUR ---
Levophed - drip titrated to 15mcg
--- NOTE | 2017-07-15 00:42 | NUR ---
IV SITE IN RT AC DC'D DUE TO LEAKING. PT ORLY WELL, TIP OF CATH INTACT.
--- NOTE | 2017-07-15 00:58 | NUR ---
Levophed - Drip titrated to 12mcg
--- NOTE | 2017-07-15 01:46 | NUR ---
Levophed - drip titrated to 10mcg
--- NOTE | 2017-07-15 02:50 | NUR ---
LEVOPHED - TITRATED TO 7.5 MCG
--- NOTE | 2017-07-15 04:10 | NUR ---
LEVOPHED - TITRATED TO 5 MCG.
--- NOTE | 2017-07-15 04:34 | NUR ---
VASOPRESSIN DRIP - OFF AT THIS TIME.
--- NOTE | 2017-07-15 05:05 | NUR ---
LEVOPHED - DRIP TITRATED UP TO 10 MCG
--- NOTE | 2017-07-15 05:29 | NUR ---
BLOOD DRAWN FROM CENTRAL LINE, ALL THREE LUMINS HEP FLUSHED, BLOOD RETURN OBTAINED FROM EACH LUMIN. SITE INTACT, NO REDNESS OR SWELLING NOTED, DRESSING INTACT.
--- NOTE | 2017-07-15 06:08 | NUR ---
LEVOPHED - TITRATED TO 10 MCG
--- NOTE | 2017-07-15 07:00 | NUR ---
ALL CHARTING DONE BY STUDENT NURSE YURIY HAS BEEN REVIEWED/ASSISTED BY THIS RN.
--- NOTE | 2017-07-15 07:45 | NUR ---
LEVOPED DRIP INCREASED TO 13MCG/MIN DUE TO MAP OF 51.
--- NOTE | 2017-07-15 07:45 | NUR ---
UPON INITIAL ASSESSMENT PT STATES, 8 OUT 10 PAIN. MOANING, MEDICATED WITH IV PAIN MEDICATION. PT MOANING WITH EYES CLOSED. BP DROPPED TO MAP UNDER 60, NOREPI DRIP TURNED UP TO 13MCG/MIN.
--- NOTE | 2017-07-15 07:54 | NUR ---
LEVOPHED DRIP INCREASED TO 15MCG/MIN DUE TO MAP OF 51.
--- NOTE | 2017-07-15 07:55 | NUR ---
LEVOPHED ---- 15 MCG/MIN BP 75/47 (51)
--- NOTE | 2017-07-15 08:44 | NUR ---
DR VERDUGO IN TO SEE PT, AND DAUGHTER ARE AT BEDSIDE. DR VERDUGO STATES COLOR LOOKS BETTER IN HIS LEGS. PATIENT SLEPT THROUGH ASSESSMENT.PLAN OF CARE FOR THE DAY INCLUDING NUTRION AND REST DISCUSSED. PT'S STATES UNDERSTANDING OF PLAN. ALL QUESTIONS ANSWERED. AND DAUGHTER REMAIN AT BEDSIDE.
--- NOTE | 2017-07-15 09:00 | NUR ---
PT STILL MOANING, STATES PAIN STILL A 09/14, IV TYLENOL ORDERED BY DR VERDUGO.
--- NOTE | 2017-07-15 09:36 | NUR ---
PT OXYGEN SATURATION DROPPED INTO MID 80'S, PLACED ON 2L VIA OXY MASK.
--- NOTE | 2017-07-15 09:57 | NUR ---
PT STATES PAIN HAS SLIGHTLY DECREASED TO A 5/10. RESTING WITH EYES CLOSED, MOANING LESS FREQUENTLY. BREATHING LABORED AND UNEVEN WITH A RESPIRATORY RATE OF 26 BREATHS A MINUTE. OXYGEN SATURATIONS 96% ON 2L.
--- NOTE | 2017-07-15 10:30 | NUR ---
PT HAD SUDDEN EPISODE OF SHORTNESS OF BREATH, USING ACCESSORY MUSCLES TO BREATH. HEART RATE INCREASED FROM 110'S TO 150. TURNED OXYGEN UP TO 1O AND CALLED RESPIRATORY THERAPY. SHORTNESS OF BREATH RESOLVED. OXYGEN TURNED BACK DOWN TO 4 ON THE MASK, PT STATES HE FEELS BETTER AND THAT HE HAS HAD THIS HAPPEN BEFORE. RESPIRATROY RATE AND HEART RATE BACK TO BASELINE. WILL CONTINUE TO MONITOR.
--- NOTE | 2017-07-15 10:48 | NUR ---
LEVOPHED--- 17 MCG/MIN FOR BP OF 70/42 (49)
--- NOTE | 2017-07-15 10:50 | NUR ---
DR HOOKER IN TO SEE PT. DISCUSSED REDUCING THE RATE OF IV FLUIDS AND PLAN OF CARE WITH PT AND DANNY LEZAMA. PT STATES ALL QUESTIONS WERE ANSWERED.
--- NOTE | 2017-07-15 10:57 | NUR ---
PT COMPLAINS OF SHORTNESS OF BREATH. INCREASED RESP RATE UP TO 30 AND USE OF ACCESSORY MUSCLES NOTED. O2 TURNED UP TO 6 L VIA MASK.
--- NOTE | 2017-07-15 11:33 | NUR ---
DC'D NG TUBE PER DR. HOOKER'S ORDER. PT TOLERATED WELL, STATES NO PAIN OR DISCOMFORT WITH REMOVAL.
--- NOTE | 2017-07-15 12:26 | NUR ---
PT IN AND OUT OF SLEEP. RYDER AND DAUGHTER AT PT'S SIDE. RYDER CAME OVER TO ME AND BEGAN TO DISCUSS HOW CHALLENGING YESTERDAY WAS PT WAS RUSHED TO SURGERY. LOOKS VERY STRESSED, EXTENDED A BLESSING-DR VERDUGO IN TO VISIT. I WILL CONTINUE TO FOLLOW
--- NOTE | 2017-07-15 12:51 | NUR ---
PT RESTING COMFORTABLY, NO LONGER MOANING. BREATHING IS EVEN AND UNLABORED. TOLERATING ICE CHIPS INTERMITTENTLY WITHOUT NAUSEA OR DISCOMFORT. PT STATES HIS PAIN IS ABOUT A FOUR AND TOLERABLE. TURNED OXYGEN DOWN TO 3 L. PT'S SATURATIONS REMAIN IN THE HIGH 90'S WHILE RESTING. CALL LIGHT WITHIN REACH. NO FURTHER REQUESTS AT THIS TIME.
--- NOTE | 2017-07-15 13:01 | NUR ---
PT SITTING UP IN BED, FAMILY OUT FOR A BREAK. PT SHOOK MY HAND AND THANKED ME FOR PRAYING FOR HIM. HE MENTIONED THAT HE IS FEELING BETTER. I SHARED WITH HIM MY CONCERN FOLLOWING HIS SURGERY YESTERDAY. AGAIN EXPRESSED GRATITUDE AND REQUESTED PRAYER. HE ALSO ASKED FOR ICE, MENTIONED TO RN. I WILL CONTINUE TO FOLLOW NEEDED
--- NOTE | 2017-07-15 13:20 | NUR ---
LEVOPHED ---- 15MCG/MIN BP 103/62 (72)
--- NOTE | 2017-07-15 13:40 | NUR ---
PT FAMILY BACK AT THE BEDSIDE A THIS TIME, PT IS DOING BETTER THIS AFTERNOON. PT APPEARS TO BE RESTING COMFORTABLE AT THIS TIME.
--- NOTE | 2017-07-15 13:41 | NUR ---
THIS COMMERCIAL LINES ACCOUNT EXECUTIVE AGREES WITH STUDENT NURSE CHARTING SO FAR THIS SHIFT.
--- NOTE | 2017-07-15 14:20 | NUR ---
LAB SAMPLE OBTAINED AT THIS TIME, 5MLS WASTED AND 10 MLS SENT TO LAB .
--- NOTE | 2017-07-15 14:20 | NUR ---
LEVOPHED DRIP DECREASED TO 12MCG/MIN AT THIS TIME. PT MAP IS MAINTAINING 64 TO 66 AT THIS TIME.
--- NOTE | 2017-07-15 14:44 | NUR ---
PT IN BED, AND DAUGHTER AT BEDSIDE. PT SATURATING IN THE HIGH 90'S ON ROOM AIR. STATES HE FEELS CLAMMY, WIPE DOWN OF NECK, LEGS, AND ARMS. PT ASSISTED WITH LIFTING LEGS AND WAS ABLE TO LIFT ARMS. SHAMPOO CAP APPLIED WELL. PT NOW RESTING COMFORTABLY, STATES PAIN IS ONLY WITH MOVEMENT OR COUGHING. CALL LIGHT WITHIN REACH, VISIBLE FROM NURSES STATION. NO FURTHER REQUESTS AT THIS TIME.
--- NOTE | 2017-07-15 15:15 | NUR ---
FLUSHED JTUBE WITH 50 ML OF TAP WATER AND BEGAN FEEDING AT 10 ML/HR. PT STATES PAIN IS WELL CONTROLLED. DR VERDUGO IN ROOM, PT STATES HE HAS NO QUESTIONS AND UNDERSTANDS PLAN OF CARE. FRIEND AT BEDSIDE. NO FURTHER REQUESTS AT THIS TIME.
--- NOTE | 2017-07-15 15:51 | NUR ---
PT IS FEELING BETTER AT THIS TIME. LEVOPHED DRIP IS AT 12MCG/MIN, FAMILY AT THE BEDSIDE, PT IS MORE INTERACTIVE WITH STAFF AND FAMILY.
--- NOTE | 2017-07-15 16:02 | EKG ---
[facility] [address] [facility] [place], [place] [address] Signed Sinus rhythm with premature supraventricular complexes Right bundle branch block Abnormal ECG When compared with ECG of 12-JUL-2017 09:34, No significant change was found Confirmed by MELL VERDUGO MD ([id number]) on 07/15/2017 4:02:08 PM Electronically Signed By: MELL VERDUGO MD 07/15/17 1602 PATIENT NAME: ELI HONG LUCIUS Electrocardiogram DATE OF : 44 PHYSICIAN: MELL VERDUGO MD REPORT #: [id number] REPORT IS CONFIDENTIAL AND NOT TO BE RELEASED WITHOUT AUTHORIZATION
--- NOTE | 2017-07-15 16:15 | NUR ---
LEVOPHED --- 14 MCG/ MIN FOR BP 75/48 (54)
--- NOTE | 2017-07-15 16:32 | NUR ---
IN TO ASSESS PT. , DAUGHTER, AND FAMILY FRIENDS PRESENT. PT STATES HE HAS MINIMAL PAIN. ALERT AND ORIENTED TIMES 4. NO REPORTED SHORTNESS OF VBREATH. BREATHING EVEN AND UNLABORED WITH A RESPIRATORY RATE OF 22 BREATHS A MINUTE. AFTERL GUESTS LEFT ROOM, REPOSTIONED PT IN BED. PT RESTING COMFORTABLY. CALL LIGHT WITHIN REACH, VISIBLE FROM THE NURSES STATION. NO FURTHER REQUESTS AT THIS TIME.
--- NOTE | 2017-07-15 17:18 | NUR ---
PT APPEARS TO BE COMFORTABLE AT THIS TIME, FEEDING INFUSING WELL, AT TIMES PT C/O'S OF BEING HOT AND FEELING "SWEAT" ON HIM. HE HAS DENIED CHEST PAIN WHEN THIS IS HAPPING AND NO CHANGED NOTED IN HIS VS OR ASSESSMENT. LEVOPHED DRIP REMAINS AT 14MCG/MIN AT THIS TIME. PT MAP VARIES FROM 62 TO 65 AT TIMES AT THIS RATE. FAMILY REMAINS AT THE BEDSIDE.
--- NOTE | 2017-07-15 19:01 | NUR ---
LEVOPHED DRIP CONTIOUES TO RUN AT 14MCG/MIN THIS TOUR LEADER AGREES WITH STUDENT NURSE CHIKI DENSON PT STATES HE IS FEELING BETTER THAN THAN THE AFTERNOON. HE APPEARS TO HAVE MORE COLOR IN HIS FACE THIS EVENING. PETERSON CONTIOUES TO TAL YELLOW IN COLOR URINE, JTUBE FEEDING IS INFUSING AT 10ML/HR AND PT IS TOLERATING IT WELL. FAMILY HAS BEEN AT THE BEDSIDE ALL DAY.
--- NOTE | 2017-07-15 20:00 | NUR ---
PT SITTING WATCHING TV IN BED WITH FAMILY IN RM. PT ALERT AND ORIENTED X4. COMMUNICATING WITH FAMILY AND NURSING STAFF. CONTINUES TO BE TACHYCARDIC AND HYPOTENSIVE WITH LEVOPHED DRIP AT 14MCQ AT THIS TIME. IV SITES FLUSHED WITH 10ML NS, PATENT AND INTACT. CENTRAL LINE HAS BLOOD RETURN, FLUSHED AND PATENT. CENTRAL LINE DRESSING CHANGE DRESSING ADHESIVE WAS WEARING OFF. PT URINE OUTPUT SUFFICIENT CURRENTLY AT 75ML/HR. WOUND SITE, DRAINING TUBE SITES C/D/I. PT STATES NO NAUSEA, SOB, OR PAIN AT THIS TIME. REMINDED TO USE THE CALL LIGHT WHICH IS PLACED WITHIN REACH.
--- NOTE | 2017-07-15 21:45 | NUR ---
PT BECAME DIAHPHRETIC AND STATES, "IM NOT FEELING RIGHT" THIS SN HAD JUST STOPPED LEVOPHED DRIP TO SWITCH BAG AND WAS PROGRAMING THE PUMP. THIS SN CALLED FOR DANNY BRUCE. PT STATED HAVING DOUBLE VISION AND NOT FEELING RIGHT. CONTINUED TO BECOME DIAPHRETIC. IMMEDIATELY STARTED LEVOPHED AGAIN AT 14MCG AND REASSESSED BLOOD PRESSURE, DANNY MORTON INITIATED OXYGEN NC AT 2L. BP TAKEN AT 2145 - 102/45 (53), HR 107, O2 93%, RR 25. AT 2149 BE TAKEN AGAIN 113/50 (65), HR 113, O2 93, RR 25. AT THIS TIME PT NO LONGER FEELING DIAHRETIC, VISION BACK TO BASELINE AND STATES "I AM FEELING BETTER."
--- NOTE | 2017-07-16 | NUR ---
REPOSITIONED PT WITH PILLOW UNDER LEFT HIP. PT DENIES PAIN, SOB, AND NAUSEA AT THIS TIME. CALL LIGHT WITHIN REACH.
--- NOTE | 2017-07-16 04:30 | NUR ---
REPOSITIONED PT WITH PILLOW UNDER RIGHT HIP. PT STATES HE IS FEELING FINE. PT COUGHING UP CLEAR SPUTUM OCCATIONALLY. HOLDS PILLOW ON STOMACH TO BETTER TOLERATE COUGHING. DENIES NAUSEA, SOB, OR PAIN AT THIS TIME. PT CALL LIGHT WITHIN REACH.
--- NOTE | 2017-07-16 05:38 | NUR ---
LEVOPHED - TITRATED TO 10 MCG
--- NOTE | 2017-07-16 06:00 | NUR ---
PT RESTING SITTING UP IN BED WATCHING TV. STATES HE IS FEELING OK AT THIS TIME. DENIES NAUSEA, SOB, OR PAIN. PT COUGHING CLEAR SPUTUM PERIODICALLY. LABS DRAWN THROUGH CENTRAL LINE, GOOD BLOOD RETURN. READJUSTED PT UP IN BED. FEEDING TUBE TOLERATED WELL @ 10ML/HR PT O2 SAT @ 97 ON 2L NC. BP STABLE AT 108/50 (64), CONTINUES TO BE TACHYCARDIC, NO FEVER. LEVOPHED DRIP TITRATED DOWN TO 10MCG. URINE OUTPUT SATISFACTORY ABOVE 50ML/HR. WOUND D/C/I, NO DRAINAGE FROM NARA'S, SUCTION LOW INTERMITTENT. PT EATING ICE CHIPS PERIODICALLY AND TOLERATING THEM WELL. PT STATES NO CONCERNS OR COMPLAINTS AT THIS TIME. CALL LIGHT PLACED WITHIN REACH.
--- NOTE | 2017-07-16 07:50 | NUR ---
PT RESTING IN BED AND REPORTING DISCOMFORT IN ABD AND COCCYX AREA, RATE 4/10, DISCUSSED PAIN MANAGEMENT AND ACTIVITY/POSITIONING TO REDUCE DISCOMFORT. CENTERAL LINE RUNNING LEVOPHED 10 MCG, MEROPENEM @ 33ML/HR, D5LR @50ML/HR, DRESSING IS C/D/I. TUBE FEEDING RUNNING AT 20 MLS/HR. NARA DRAINS CURRENTLY DRAINING SEROSANGUINEOUS FLUID. ABD DRESSING C/D/I. PETERSON IN PLACE AND DRAINING EDITH COLORED URINE. PT REPOSITIONED AND SKIN CARE PROVIDED. PT EDUCATED ON BRACING ABD WHEN COUGHING. PT VERBALIZED UNDERSTANDING AND WAS AGREEABLE.
--- NOTE | 2017-07-16 08:05 | NUR ---
CARE CONFERENCE DR VERDUGO AND STAFF NURSE MET WITH PATIENT AND FAMILY TO DISCUSS PROGRESS. PATIENT IS STILL REQUIRING IV PRESSORS FOR BLOOD PRESSURE SUPPORT. IVF/ABX AND IS NOW GETTING TUBE FEEDINGS FOR NUTRITION PER J-TUBE. PATIENT IS HAVING ACTIVITY IN BED, SLOWLY WILL PROGRESS TO SITTING UP AND TO CHAIR. RECEIVING TRANSFUSION AND WILL REQUIRE LABS. PATIENT MAKING GOOD URINE WITH CLOSE WATCH ON KIDNEY FUNCTIONS. PATIENT AND FAMILY CONTINUE TO WANT A DISCHARGE TO HOME. WHEN TOLERATES, WILL INCREASE PHYSICAL THERAPY. ALL QUESTIONS ANSWERED.
--- NOTE | 2017-07-16 08:25 | NUR ---
DR. VERDUGO AT BEDSIDE TO ASSESS PT AND UPDATE PLAN OF CARE. PT TO BE TYPED AND CROSSED.
--- NOTE | 2017-07-16 09:28 | NUR ---
PT RESTING COMFORTABLY IN BED, AT BEDSIDE.
--- NOTE | 2017-07-16 10:20 | NUR ---
DR. HOOKER AT BEDSIDE ASSESSING PT AND UPDATING PLAN OF CARE. NEW ORDERS FOR PHYS THERAPY, DC D5LR, AND INCREASE TUBE FEEDING TOLERATED.
--- NOTE | 2017-07-16 12:01 | NUR ---
1 UNIT OF BLOOD STARTED @11:48, RUNNING @ 75ML/HR, VITALS SIGNS OBTAINED PRIOR. NO SOB, BACK PAIN, CHILLS, FLUSHING, [place], COUGHING, OR ANY OTHER DISCOMFORT/CHANGES REPORTED OR OBSERVED. VITALS SINGS OBTAINED 15 MINS AFTER AND WNL. RATE INCREASED TO 175 ML/HR. WILL CONTINUE TO MONITOR.
--- NOTE | 2017-07-16 13:56 | NUR ---
PATIENT TOLERATING VITAL 1.5 CONTINUOUS FEED VIA J-TUBE. FEEDING NOW AT 20 ML/HR. TO INCREASE TO 30 ML/HR AT 3 PM TODAY. SHOULD GET TO 40 ML/HR AROUND 7 PM THIS EVENING IF TOLERATING OK. GOAL RATE IS 70 ML/HR. DR. HOOKER AWARE OF GOAL RATE. WILL CONTINUE TO MONITOR.
--- NOTE | 2017-07-16 14:00 | NUR ---
PT RESTING COMFORTABLY IN BED AT THIS TIME. 0.5 MG DAULDID GIVEN FOR ABD AND BACK PAIN. PT TOLERATING TUBE FEEDING INCREASE AND DENIES ANY DISCOMFORT. TUBE FEEDING TO BE INCREASED TO 40 ML/HR AFTER 4 HOURS. 1 UNIT OF BLOOD FINISHING AT THIS TIME, 1 ADDITIONAL UNIT TO BE GIVEN. LEVOPHED CONTINUES AT 10 MCG/MIN.
--- NOTE | 2017-07-16 14:32 | NUR ---
BETTER DAY TODAY. LOTS OF FAMILY IN TO VISIT. EXTENDED A BLESSING AND WILL CONTINUE TO FOLLOW NEEDED
--- NOTE | 2017-07-16 14:51 | NUR ---
MAP GREATER THAN 70 CONSISTANTLY, LEVOPHED TITRATED TO 8 MCG/MIN. PT TOLERATING INCREASED TUBE FEEDING FOR THE LAST 4 HOURS. PER PROVIDER ORDER, TUBE FEEDING INCREASED TO 40 MLS/HR AT THIS TIME. 2 UNIT OF BLOOD STARTED, VITALS WNL. WILL CONTINUE TO MONITOR.
--- NOTE | 2017-07-16 15:32 | NUR ---
LEVOPHED TITRATED TO 6 MCG/MIN AT THIS TIME.
--- NOTE | 2017-07-16 16:03 | NUR ---
PT RESTING COMFORTABLY IN BED, AT BEDSIDE. LEVOPHED CONTINUES AT 6 MCG/MIN, BP 105/51, MAP 64. PT TOLERATING INCREASED TUBE FEEDING AT 40 ML/HR. DENIES PAIN AT THIS TIME. URINE OUTPUT 350 ML IN THE LAST 2 HOURS. 2 UNIT OF BLOOD RUNNING @175 ML/HR AND MEROPENEM RUNNING AT 33 ML/HR. PT'S OVERALL COLOR IMPROVING.
--- NOTE | 2017-07-16 16:44 | NUR ---
LEVOPHED TITRATED TO 6 MCG/MIN
--- NOTE | 2017-07-16 17:45 | NUR ---
BED BATH, PETERSON CARE, AND LINEN CHANGED, PT TOLERATED WELL. PT REASSESSED FOR POSITIONING AND PAIN. PT REPORTS PAIN 5/10, 0.5MG PRN DILAUDID GIVEN.
--- NOTE | 2017-07-16 18:02 | NUR ---
PT ASSISTED TO EDGE OF BED, TOLERATED WELL. REASSESSED FOR PAIN AND POSITIONING, PT REPORTS WITHIN TOLERABLE LIMITS. RT IN ROOM, EDUCATION ON IS USE PROVIDED, PT PERFORMED IS EXERCISE AT THIS TIME. PT REQUESTING TO SIT AT EDGE OF BED TO VISIT WITH FAMILY. BED IN LOWEST POSITION AND CALL LIGHT WITHIN REACH.
--- NOTE | 2017-07-16 20:08 | NUR ---
BEDSIDE REPORT RECEIVED FROM TORSTEN DELGADO AT [phone]. PT J-G TUBE DRAINING CLEAR LIGHT GREEN LIQUID. J-TUBE WITH TUBE FEEDING AT 40ML/HR. O2 ON 1L NC. CENTRAL LINE DRESSING INTACT WITH LEVOPHED INFUSING AT 6MCG/MIN. PT POSITIONED ON R SIDE WITH PILLOWS.
--- NOTE | 2017-07-16 21:00 | NUR ---
PT DRESSING CHANGED ON ABD. REMOVED MIDLINE MEPELEX AND PLACED ABD DRESSING. NARA DRESSINGS CHANGED AND NEW TUBE DRESSING PLACED. TUBE FEEDING WELL. USED MEDIAPORE TAPE. DRAINAGE MINIMAL. KASSIE MIDLINE ON ABD AND INTACT. PT GIVEN 1MG DILAUDID PRIOR FOR 'GENERALIZED' PAIN WELL ABDOMINAL PAIN 06/15.
--- NOTE | 2017-07-16 23:46 | NUR ---
PT USED CALLED LIGHT TO REQUEST ICE CHIPS. NO OTHER NEEDS, NO PAIN. REPOSITIONED MINORLY IN BED. PT COMFORTABLE ON R SIDE. DRESSINGS INTACT ON ABD. NARA TUBESX2 DRAINING SEROUS FLUID. J-G TUBE DRAINING CLEAR GREEN FLUID ON LIWS. TUBE FEEDING INFUSING AT 40ML/HR. PT NOTED TO HAVE MORE BT THAN PREVIOUS ASSESSMENT. OFFERED TO SWITCH BP CUFF TO OTHER ARM, REFUSED AT THIS TIME. PT HAS BEEN ABLE TO SLEEP ON AND OFF.
--- NOTE | 2017-07-17 02:10 | NUR ---
REPOSITIONED PT SUPINE.
--- NOTE | 2017-07-17 04:41 | NUR ---
REPOSITIONED PT TO L SIDE WITH PILLOWS. GRIMACING AND MOANING WITH MOVEMENT. NOTED TO HAVE INSPIRATORY AND EXPIRATORY WHEEZES. RT IN TO EVALUATE. PT COUGHED AND IMPROVED LUNG SOUNDS. 0.5MG DILAUDID GIVEN IV. ABD DRESSINGS INTACT WITH NO DRAINAGE. NARA DRAINS WITH SEROUS FLUID, J-G TUBE ON LIWS WITH GREEN LIQUID DRAINING. ABD DISTENDED. HYPOACTIVE BT. REMINDED PT TO GO SLOW WITH ICE CHIPS. NO NAUSEA. LEVOPHED REMAINS ON AT 6MCG/MIN.
--- NOTE | 2017-07-17 07:30 | NUR ---
BEDSIDE REPORT RECIEVED. PATIENT IS AWAKE AND WATCHING TV. IV LEVOPHED INFUSING AT 6 MCG/MIN. ANTIBOTIC INFUSING. SCD'S ON. TUBE FEEDING PATENT AT 40 ML/HR. DR. VERDUGO HERE TO SEE PATIENT.
--- NOTE | 2017-07-17 08:30 | NUR ---
TALKED WITH PATIENT ABOUT LIMITING ICE CHIPS. IS UNDERSTANDING.
--- NOTE | 2017-07-17 09:00 | NUR ---
DILAUDID GIVEN PRIOR TO AM CARES.
--- NOTE | 2017-07-17 09:30 | NUR ---
SPONGE BATH GIVEN. SITTING AT BEDSIDE.
--- NOTE | 2017-07-17 09:54 | NUR ---
CONTINUE TO SIT UP AT BEDSIDE. VISITING WITH FAMILY MEMBERS. DENIES PROBLEMS.
--- NOTE | 2017-07-17 09:55 | NUR ---
BACK TO BED AFTER SITTING AT BEDSIDE.
--- NOTE | 2017-07-17 10:10 | NUR ---
DILAUDID 0.5 MG IV GIVEN FOR PAIN.
--- NOTE | 2017-07-17 11:00 | NUR ---
RESTFUL. SEVERAL FAMILY MEMBERS IN ROOM.
--- NOTE | 2017-07-17 11:48 | NUR ---
DILAUDID 0.5 MG IV GIVEN FOR PAIN. DENEIS NAUSEA. LEVOPHED GTT DECREASED TO 5 MCG/MIN.
--- NOTE | 2017-07-17 13:55 | NUR ---
HARD CANDY GIVEN, THIS WRITTEN IN PROGRESS NOTE ON 07/15/17 AT 10:[address] HOOKER.
--- NOTE | 2017-07-17 14:13 | NUR ---
TYLENOL 640 MG VIA FEEDING TUBE GIVEN FOR COMFORT.
--- NOTE | 2017-07-17 14:25 | NUR ---
DILAUDID 0.5 MG IV GIVEN FOR PAIN. TURNED TO RIGHT SIDE.
--- NOTE | 2017-07-17 16:00 | NUR ---
ASSESSMENT DONE. UP TO SIT AT BEDSIDE. BACK WASHED. ENCOURAGED TO DEEP BREATH.
--- NOTE | 2017-07-17 17:50 | NUR ---
DILAUDID 0.5 MG IV GIVEN. REPOSITIONED.
--- NOTE | 2017-07-17 19:00 | NUR ---
RECEIVED REPORT FROM RN. PATIENT IS RESTING COMFORTABLY IN BED, BREATHING IS EVEN AND UNLABORED. DENIES NEEDS AT THIS TIME. CALL LIGHT WITHIN REACH, ALL LINES INTACT.
--- NOTE | 2017-07-17 20:43 | NUR ---
PATIENT RESTING ON EDGE OF BED, REPORTS 4/10 PAIN IN ABD, PRN LORTAB GIVEN PT. PATIENT DENIES FURTHER NEEDS AT THIS TIME. ALL LINES INTACT, FAMILY AT BEDSIDE. CALL LIGHT WITHIN REACH.
--- NOTE | 2017-07-17 21:42 | NUR ---
PATIENT RESTING COMFORTABLY IN BED, BREATHING IS EVEN AND UNLABORED. O2 SATURATION IS 94% ON 1L O2 VIA NC. BP OF 96/57 WITH MAP OF 67 NOTED. LEVOPHED DRIP AT 3 MCG/MIN. PATIENT DENIES NEEDS AT THIS TIME. ALL LINES INTACT. CALL LIGHT WITHIN REACH.
--- NOTE | 2017-07-17 22:22 | NUR ---
PATIENT RESTING IN BED, BREATHING IS EVEN AND UNLABORED. O2 SATURATION IS 92% ON 1L O2 VIA NC, BP OF 95/50 WITH MAP OF 59 NOTED, TITRATED LEVOPHED DRIP TO 2.5 MCG/MIN, PATIENT'S URINE OUTPUT IS QS, WILL CONTINUE TO MONITOR CLOSELY. OFFERED TO REPOSITION PATIENT, HE STATES "I AM ACTUALLY REALLY COMFORTABLE RIGHT NOW." DENIES NEEDS AT THIS TIME. CALL LIGHT WITHIN REACH, ALL LINES IN TACT.
--- NOTE | 2017-07-17 23:00 | NUR ---
TITRATED LEVOPHED GTT TO 2 MCG/MIN. WILL CONTINUE TO MONITOR BP CLOSELY. PATIENT IS RESTING WITH EYES CLOSED, APPEARS TO BE ASLEEP, FLACC SCORE OF 0. VITALS STABLE, DRAINS INTACT. CALL LIGHT WITHIN REACH.
--- NOTE | 2017-07-17 23:53 | NUR ---
TITRATED LEVOPHED GTT TO STANDBY, BP IS 102/59, MAP OF 70. WILL CONTINUE TO MONITOR CLOSELY.
--- NOTE | 2017-07-18 00:15 | NUR ---
LEVOPHED GTT DISCONNECTED, BP IS 100/47, MAP OF 56. WILL CONTINUE TO MONITOR CLOSELY. PATIENT IS RESTING COMFORTABLY, FLACC SCORE OF 0. CALL LIGHT WITHIN REACH.
--- NOTE | 2017-07-18 01:45 | NUR ---
ASSISTED TO BEDSIDE COMODE WITH 2PA/FWW. TOLERATING REPOSITIONING WITH PATIENT REPORTING 4/10 PAIN IN ABD WITH MOVEMENT. PATIENT SAT ON EDGE OF BED AFTER COMODE, USED IS. PATIENT THEN ASSISTED BACK TO BED. VITALS REMAIN STABLE. PATIENT DENIES FURTHER NEEDS. CALL LIGHT WITHIN REACH.
--- NOTE | 2017-07-18 01:49 | NUR ---
PATIENT GIVEN PRN LORTAB FOR 10 IN ABD. DENIES FURTHER NEEDS. CALL LIGHT WITHIN REACH.
--- NOTE | 2017-07-18 02:50 | NUR ---
PATIENT RESTING IN BED, BREATHING IS EVEN AND UNLABORED. DENIES NEEDS AT THIS TIME. FLACC SCORE OF 0. CALL LIGHT WITHIN REACH.
--- NOTE | 2017-07-18 04:06 | NUR ---
PATIENT RESTING IN BED, BREATHING IS EVEN AND UNLABORED, VITALS ARE STABLE, FLACC SCORE OF 0. CALL LIGHT WITHIN REACH.
--- NOTE | 2017-07-18 05:30 | NUR ---
PATIENT RESTING COMFORTABLY IN BED, BREATHING IS EVEN AND UNLABORED. VITALS STABLE, FLACC SCORE OF 0. PATIENT DENIES NEEDS AT THIS TIME. CALL LIGHT WITHIN REACH.
--- NOTE | 2017-07-18 06:50 | NUR ---
PATIENT RESTING IN BED, BREATHING IS EVEN AND UNLABORED. VSS. REPORTS 4/10 PAIN IN ABD, LORTAB GIVEN PER EMAR. PATIENT DENIES FURTHER NEEDS. DRAINS INTACT, ALL ORDERS IN PLACE. CALL LIGHT WITHIN REACH.
--- NOTE | 2017-07-18 07:20 | NUR ---
BEDSIDE REPORT RECIEVED. CRITICAL LAB VALUE RECIEVED,HCT-18.3, HGB-6.1. PATIENT DENEIS PAIN OR AND PROBLEMS.
--- NOTE | 2017-07-18 07:30 | NUR ---
DR. IRENE NOTIFIED OF CRITICAL LAB VALUES, ORDERS RECIEVED TO REDRAW CBC PERIPHERAL SITE.
--- NOTE | 2017-07-18 08:50 | NUR ---
DR. HOOKER HERE TO SEE PATIENT. ORDERS RECIEVED.
--- NOTE | 2017-07-18 09:00 | NUR ---
TAKING ICE CUBES, DENIES NAUSEA.
--- NOTE | 2017-07-18 09:15 | NUR ---
ONE UNIT PRBC'S HUNG PER DR. IRENE'S ORDERS.
--- NOTE | 2017-07-18 10:00 | NUR ---
UP TO COMMODE WITH ASSIST TO EXPELL GAS WITH LIQUID BLACK STOOL. IS WEAK, USING WALKER FOR TRANSFER. HR TO MID 120'S WITH MOVEMENT FROM 105. DENIES DIZZINESS. THEN BACK TO SIT AT BEDSIDE. AFTER SITTING AT BEDSIDE FOR APPROX 5 MIN, TRANSFER TO CHAIR.
--- NOTE | 2017-07-18 10:15 | NUR ---
PHYS THERAPY HERE TO WORK WITH PATIENT. BLOOD INFUSING W/O PROBLEMS.
--- NOTE | 2017-07-18 10:44 | NUR ---
REMAINS IN CHAIR, WATCHING TV. PATIENT IS AT BEDSIDE.
--- NOTE | 2017-07-18 11:00 | NUR ---
BACK TO COMMODE.
--- NOTE | 2017-07-18 11:17 | NUR ---
BACK TO CHAIR. NO BM.
--- NOTE | 2017-07-18 12:00 | NUR ---
BACK TO BED. BLOOD TRANSFUSION COMPLETE.
--- NOTE | 2017-07-18 13:55 | NUR ---
550 ML BILE EMPTIED FROM G-J TUBE.
--- NOTE | 2017-07-18 16:30 | NUR ---
SITTING AT BEDSIDE.
--- NOTE | 2017-07-18 17:45 | NUR ---
TO COMMODE TO EXPELL LIQ BLACK STOOL. HR 120-125. SAT ON COMMODE FOR APPROX 30 MIN. DENIES DIZZINESS. BACK TO BED WITH ASSIST.
--- NOTE | 2017-07-18 20:11 | NUR ---
UPDATED DR. IRENE REGARDING PATIENT'S INCREASING HEART RATE, NO NEW ORDERS AT THIS TIME. DUE TO MULTIPLE BOWEL MOVEMENTS, MIRALAX ORDER CHANGED TO ONCE A DAY.
--- NOTE | 2017-07-18 21:16 | NUR ---
PATIENT RESTING IN BED, BREATHING IS EVEN AND UNLABORED. O2 SAURATION IS 90% ON 1L O2, TITRATED O2 UP TO 2L, SATURATION NOW 93%. PATIENT REPORTS 0/10 PAIN. VITALS STABLE, HEART RATE IS 104. ASSESSMENT DONE, ALL DRAINS INTACT, G-J TUBES TO LIS, IV FLUIDS INFUSING TKO. PATIENT DENIES NEEDS AT THIS TIME. CALL LIGHT WITHIN REACH.
--- NOTE | 2017-07-18 21:30 | NUR ---
UPDATED DR. IRENE REGARDING DISTAL LUMEN OF IJ NOT FLUSHING. NO NEW ORDERS AT THIS TIME.
--- NOTE | 2017-07-18 21:34 | NUR ---
UNABLE TO FLUSH DISTAL LUMEN OF IJ. ALL OTHER LUMENS ARE FLUSHING WELL WITH BLOOD RETURN.
--- NOTE | 2017-07-18 22:45 | NUR ---
PATIENT RESTING IN BED, BREATHING IS EVEN AND UNLABORED, FLACC SCORE OF 0, APPEARS TO BE ASLEEP. CALL LIGHT WITHIN REACH.
--- NOTE | 2017-07-19 00:05 | NUR ---
PATIENT REPOSITIONED FOR COMFORT, PATIENT'S PAIN IS 4/10 IN ABD WITH MOVEMENT, PRN LORTAB GIVEN. PATIENT DENIES FURTHER NEEDS. NO CHANGES IN VITAL SIGNS, ALL DRAINS INTACT. ASSESSMENT DONE. CALL LIGHT WITHIN REACH.
--- NOTE | 2017-07-19 01:27 | NUR ---
PATIENT RESTING IN BED, BREATHING IS EVEN AND UNLABORED. O2 SATURATION IS 93% ON 2L O2 VIA NC, RR IS 21. PULSE IS 98, FLACC SCORE OF 0. APPEARS TO BE ASLEEP. CALL LIGHT WITHIN REACH.
--- NOTE | 2017-07-19 02:00 | NUR ---
PATIENT RESTING IN BED, BREATHING IS EVEN AND UNLABORED, FLACC SCORE OF 0, APPEARS TO BE ASLEEP. VITALS STABLE. CALL LIGHT WITHIN REACH.
--- NOTE | 2017-07-19 04:04 | NUR ---
PATIENT REPOSITIONED IN BED FOR COMFORT AND FOR CHUCKS CHANGE. PATIENT IS ABLE TO TURN IN BED BY HIMSELF, INCREASED PAIN IN ABD, 4/10 WITH MOVEMENT, PRN LORTAB GIVEN. PATIENT DENIES FURTHER NEEDS. HE STATES "I ACTUALLY WOKE UP FEELING REALLY GOOD." VITALS ARE STABLE, ALL DRAINS IN PLACE. CALL LIGHT WITHIN REACH.
--- NOTE | 2017-07-19 05:41 | NUR ---
PATIENT IS RESTING COMFORTABLY IN BED, BREATHING IS EVEN AND UNLABORED. O2 SATURATION IS 95% ON 2L O2 VIA NC. VITALS ARE STABLE, PATIENT REPORTS 0/10 PAIN. PATIENT STATES "I FEEL GREAT THIS MORNING." DENIES NEEDS AT THIS TIME. CALL LIGHT WITHIN REACH.
--- NOTE | 2017-07-19 07:30 | NUR ---
REPORT RECIEVED. PATIENT IS RESTFUL IN BED.
--- NOTE | 2017-07-19 07:40 | NUR ---
ASSESSMENT DONE. HAS INCREASE PRODUCTIVE COUGH. C/O INCREASED SHORTNESS OF BREATH. REQUESTED O2 TO BE INCREASED. O2 INCREASED TO 4L NC PER PT REQUEST.
--- NOTE | 2017-07-19 08:00 | NUR ---
OOB TO COMMODE. MOVING WELL WITH ASSIST.
--- NOTE | 2017-07-19 08:45 | NUR ---
SAT ON COMMODE FOR APPROX 45 MIN. HAD LIQUID BLACK STOOL. SPONGE BATH GIVEN WHILE ON COMMODE. PAIN MEDICATION GIVEN EARILER, WELL ROUTINE MEDICATION GIVEN VIA FEEDING TUBE. TUBE FEEDING REMAINS AT 70ML/HR. TOLERATING TUBE FEED WELL. PETERSON CATH PATENT WITH CLEAR YELLOW URINE NOTED. HR WHEN UP 120-125. DENEIS DIZZINESS.NARA X 2 INTACT. G-J TUBE REMAINS TO LIS. WITH LIGHT GREEN CONTENTS NOTED. DR. GORMAN HERE TO SEE PATIENT. NO FUTHER ORDERS RECIEVED.
--- NOTE | 2017-07-19 09:53 | NUR ---
DR. IRENE HERE TO SEE PATIENT. ORDERS RECIEVED. PATIENT IS W/O C/O.
--- NOTE | 2017-07-19 10:00 | NUR ---
DR. GORMAN SAID PATIENT COULD TAKE MANY ICE CHIPS HAS HE WANTS.
--- NOTE | 2017-07-19 10:45 | NUR ---
SITTING IN CHAIR.
--- NOTE | 2017-07-19 11:30 | NUR ---
PHYS THERAPY HERE TO WORK WITH PATIENT.
--- NOTE | 2017-07-19 11:58 | NUR ---
LORATAB GIVEN FOR POST-OP PAIN.
--- NOTE | 2017-07-19 12:30 | NUR ---
UP TO COMMODE TO EXPELL LIQUID BLACK STOOL. THEN TRANSFER TO CHAIR. USING WALKER WITH TRANSFERS. DENIES DIZZINESS/SHORTNESS OF BREATH WITH EXERTION. IN GOOD SPIRITS. FAMILY MEMBERS ARE IN ROOM.
--- NOTE | 2017-07-19 13:13 | NUR ---
PATIENT DOING WELL TODAY. J-TUBE FEEDING NOW RUNNING AT 70 ML/HR WHICH IS THE GOAL RATE. HE IS RECEIVING 2,520 CALORIES AND 113 GRAMS OF PROTEIN WITH UNINTERRUPTED FEEDING. WATER FLUSHES ARE ORDERED 50 ML EVERY 8 HRS. PATIENT IS RECEIVING MORE FLUIDS WITH MEDS ADMINISTERED VIA TUBE. NO IVF RUNNING AT THIS TIME. THE PLAN IS TO DO A CONTRAST STUDY TO ASSESS FOR ANY LEAKS AT THE DUODENUM MAYBE ON WEDNESDAY (1 WEEK POST-OP). DEPENDING ON WHAT THAT SHOWS, PATIENT MAY OR MAY NOT BE ABLE TO EAT. NO CHANGES RECOMMENDED AT THIS TIME. WILL CONTINUE TO MONITOR.
--- NOTE | 2017-07-19 13:58 | NUR ---
PT SITTING UP IN BED, LOOKS MUCH MORE ALERT AND ORIENTED. RYDER AND SON ANTONIA IN VISITING, PLAYING CARDS WITH ANTONIA. ALL VERY CORDIAL, PLEASANT VISIT. EXTENDED A BLESSING, WILL CONTINUE TO FOLLOW A NEEDED
--- NOTE | 2017-07-19 14:31 | NUR ---
BACK TO BED FROM CHAIR. TOLERATED TRANSFER WILL.
--- NOTE | 2017-07-19 16:00 | NUR ---
IN BED RESTFUL. DENEIS PROBLEMS. ALL LINES PATENT EXCEPT DISTAL PORT ON RIJ OCCLUDED.
--- NOTE | 2017-07-19 18:50 | NUR ---
SITTING UP AT BEDSIDE. PATIENT SON GIVING BACK RUB.
--- NOTE | 2017-07-20 01:45 | NUR ---
PT GIVEN LORTAB ELIXIR AT 0005 FOR PAIN 04/17. SUCKING ON ICE CHIPS FOR COMFORT. CURRENTLY NOT SLEEPING. DENIES NEEDS.
--- NOTE | 2017-07-20 03:30 | NUR ---
PT UP TO BSC TO HAVE SMALL LIQUID BROWN STOOL. VERY SLIGHTLY RED TINGED. NO FORM. REPORTS FEELING BETTER AFTER PASSING FLATUS. ASSISTED WITH LE TO GET BACK INTO BED. J-G TUBE DRAINING LIGHT GREEN CLEAR LIQUID ON LIWS. J-TUBE INFUSING AT 70ML/HR. JPX2 WITH SCANT SEROUS FLUID. ELEVATED SCROTUM AND PENIS WITH SLING. PT LUNG SOUNDS VERY DIMINISHED THROUGHOUT. REMAINS ON 2L O2.
--- NOTE | 2017-07-20 06:54 | NUR ---
PT UP TO BSC TO HAVE VERY SMEAR LIQUID BROWN STOOL. BACK TO BED. GETS MOTTLED IN LE WHEN SITTING UP. SOB WITH EXERTION.
--- NOTE | 2017-07-20 08:00 | NUR ---
ASSESSMENT DONE. LORATAB ELIXER GIVEN. PATIENT STATES HE SLEPT WELL LAST NIGHT. TUBE FEEDING INFUSING AT 70 ML/HR. DENIES CRAMPING. PATIENT IN ROOM. TALKED WITH THEM ABOUT PALN OF CARE FOR DAY, BOTH ARE UNDERSTANDING.
--- NOTE | 2017-07-20 08:24 | NUR ---
PATIENT RESTING IN BED. RN STATES SHE TOOK VITALS. THIS TEAR DOWN MATCHER ASSISTED PATIENT TO WASH HANDS AND FACE WITH WARM WASH CLOTH. PATIENT CALL LIGHT IN REACH. NO OTHER NEEDS AT THIS TIME.
--- NOTE | 2017-07-20 10:49 | NUR ---
THIS PROJECT LEADER ASSISTED PATIENT UP TO BEDSIDE COMMODE. SKIN CARE PERFORMED. PATIENT UP IN BEDSIDE RECLINER. PATIENT SHAVED, AND PERFORMED ORAL CARE. PATIENTS SPOUSE IN ROOM. CALL LIGHT IN REACH. NO OTHER NEEDS AT THIS TIME.
--- NOTE | 2017-07-20 11:10 | NUR ---
PHYS THERAPY WORKING WITH PATIENT.
--- NOTE | 2017-07-20 11:11 | NUR ---
THIS BILINGUAL TEACHER ASSISTED PT WITH ROM EXERCISES FOR PATIENT. PATIENT REPOSITIONED IN BEDSIDE RECLINER, CALL LIGHT IN REACH, FRESH ICE CHIPS AT BEDSIDE TABLE, FAMILY IN ROOM. NO OTHER NEEDS AT THIS TIME.
--- NOTE | 2017-07-20 12:00 | NUR ---
TO BED AFTER BEING UP TO CHAIR AND COMMODE FO APPROX 3 HR. HAD SMALL BROWN STOOL. ASSESSMENT UNCHANGED.
--- NOTE | 2017-07-20 13:36 | NUR ---
PT SLEEPING-DANNY TORRES REQUESTED I NOT DISTURB PT. HIS RYDER AND SON REJI CAME OUT OF TO TAKE A BREAK. SON MENTIONED THAT HE TOOK 2 WKS OFF FROM WORK TO STAY AND HELP. REJI EXPRESSED GREAT SATISFACTION REGARDING DANNY TORRES'S CARE OF HIS FATHER. THANKED HIM, EXTENDED A BLESSING TO THEM BOTH. WILL FOLLOW NEEDED
--- NOTE | 2017-07-20 13:40 | NUR ---
PATIENT RESTING IN BED, EYES CLOSED. CALL LIGHT IN REACH, RN IN ROOM. NO OTHER NEEDS AT THIS TIME.
--- NOTE | 2017-07-20 14:40 | NUR ---
DR. GORMAN HERE TO SEE PATIENT. ORDERS ECIEVED.
--- NOTE | 2017-07-20 15:00 | NUR ---
KRISTEN DIOP DC'D PER ORDERS.
--- NOTE | 2017-07-20 15:15 | NUR ---
IV 20 CHANTAL STARTED TO RIGHT INNER FA. RIJ DC'D PER ORDERS. TOLEATED WELL. DENIES NEED FOR PAIN MEDICATION.
--- NOTE | 2017-07-20 16:30 | NUR ---
NAPPING, NO DISTRESS NOTED.
--- NOTE | 2017-07-20 17:13 | NUR ---
PATIENT RESTING IN BED. CALL LIGHT IN REACH. FRESH ICE CHIPS AT BEDSIDE TABLE. NO OTHER NEEDS AT THIS TIME.
--- NOTE | 2017-07-20 17:50 | NUR ---
VOIDE 150 ML OF CLEAR YEllOW URINE. DENIES NEED FOR PAIN MEDICATION.
--- NOTE | 2017-07-20 18:00 | NUR ---
sitting at bedside. BACK WASHED. BACK ITCHY, PINK RASH NOTED ON RIGHT SIDE OF BACK AND UPPER BUTTOCKS. TRANSFERRED TO CHAIR.
--- NOTE | 2017-07-20 18:53 | NUR ---
PATIENT RESTING IN BED, LIGHTS OFF IN OOM. CALL LIGHT IN REACH. NO OTHER NEEDS AT THIS TIME.
--- NOTE | 2017-07-20 20:40 | NUR ---
PT RESTING IN BED WATCHING TV. PT DENIES SOB, NAUSEA, AND PAIN. IV SITE INTACT AND PATENT, INFUSING NS AT THIS TIME. PT VOIDED 200CC IN URINAL. WOUND SITE IS CLEAN, DRY, AND INTACT. NARA SHOWING NO DRAINAGE AND NO EVIDENCE OF BILE. TUBE FEEDING CONTINUING AT 70CC/HR. PT'S HR CONTINUES TO BE TACHYCARDIC BETWEEN 110-120 AND HAS A RR IN MID 20'S. BP IS WNL. PT ON 2L O2 VIA NC. TEMP 98.9 PT DOES NOT APPEAR DISTRESSED AT THIS TIME. CALL LIGHT IS PLACED WITHIN REACH. WILL CONTINUE TO MONITOR CLOSELY.
--- NOTE | 2017-07-21 01:00 | NUR ---
PT UP TO BEDSIDE COMMODE AND HAD BOWEL MOVEMENT. NO SIGN OF BLOOD. PT BACK TO BED. DENIES SOB, NAUSEA OR PAIN AT THIS TIME. CALL LIGHT PLACED WITHIN REACH.
--- NOTE | 2017-07-21 02:55 | NUR ---
PT PASSED BOWEL MOVEMENT IN BED. PT BACK UP TO COMMODE. CALL LIGHT PLACED WITHIN REACH.
--- NOTE | 2017-07-21 05:01 | NUR ---
PT BACK UP TO COMMMODE WITH ONE PERSON ASSIST. PT UNSTABLE GAIT AND USES BED RAIL AND SN TO MOVE FROM BED TO COMMODE. PT HAD MEDIUM LIQUID BOWEL MOVEMENT THEN BACK TO BED WITH ONE PERSON ASSIST. DENIES SOB, NAUSEA, OR PAIN AT THIS TIME. PILLOWS UNDER BILATERAL ARMS TO ASSIST IN COMFORT. EDEMA IN LOWER EXTREMITIES CONTINUES TO BE NOTICABLE. PT CONTINUES TO EAT ICE CHIPS. NO NEEDS AT THIS TIME. CALL LIGHT PLACED WITHIN REACH.
--- NOTE | 2017-07-21 07:00 | NUR ---
THIS RN HAS REVIEWED/ASSISTED WITH ALL ASSESSMENTS, NOTES, AND DOCUMENTATION MADE BY STUDENT NURSE GABRIEL.
--- NOTE | 2017-07-21 07:40 | NUR ---
PT ASSISTED TO BSC, TOLERATED WELL.
--- NOTE | 2017-07-21 09:51 | NUR ---
PATIENT UP TO COMMODE AT THIS TIME. PT VOIDED TO URINAL PRIOR TO GETTING OUT OF BED FOR 200 ML CONCENTRATED URINE. PT STATES HE IS OVERALL FEELING BETTER. SWELLING NOTED TO PENIS AND TO LOWER EXT, MOSTLY IN FEET. SCDs REMAIN ON. PT IS ON 2 L NC. HEART RATE OVERALL HAS BEEN TRENDING IN THE UPPER 110-120s WITH PVCs. PT'S HELPING SCRUB PATIENT'S BACK AT THIS TIME. CONTINUE TO MONITOR.
--- NOTE | 2017-07-21 10:53 | NUR ---
DR. IRENE IN ROOM AT THIS TIME EVALUATING PATIENT. PATIENT SITS ON EDGE OF BED. PT'S AND SON IN ROOM. HEART RATE 100-110 WITH PVCs.
--- NOTE | 2017-07-21 11:52 | NUR ---
PATIENT'S TUBE FEEDING CHANGED AT THIS TIME WITH NEW TUBING AND NEW TUBE FEED CANS. PT RESTING IN BED. CHEST XRAY COMPLETE. FAMILY REMAINS IN ROOM. PT DENIES SHORTNESS OF BREATH.
--- NOTE | 2017-07-21 13:13 | OR ---
[facility] [address], [place] [address] Signed DATE OF OPERATION: 07/14/2017 SURGEON: Margarita Gorman MD PREOPERATIVE DIAGNOSIS: Need for central venous access, critical illness. POSTOPERATIVE DIAGNOSIS: Need for central venous access, critical illness. PROCEDURE: Right internal jugular central venous catheter (Arrow blue tip triple-lumen catheter placement). ANESTHESIA: 1% lidocaine. INDICATION: This 76-year-old white man has undergone operative exploration and debridement and placement of drains and repair of duodenal perforation in the 2nd portion. He needs intravenous access for further monitoring and infusion of pressor agents most likely. The risks of bleeding, infection, pneumothorax, and other unforeseen complications were reviewed with the patient and his . They understand and wish to proceed. FINDINGS: Dark nonpulsatile blood was noted from left subclavian vein, however, the flexible wire would not pass into the subclavian vein and therefore the right internal jugular site was chosen. This showed easy access with easy passage of the wire. The catheter was placed without problem, which is seen to be functional. A postprocedure chest x-ray showed good placement of right internal jugular catheter with the tip in the superior vena cava. I see no evidence of complication related to the left subclavian approach. DESCRIPTION OF PROCEDURE: In the supine position, the patient was placed with the arms at side, in the left infraclavicular space prepared with a chlorhexidine solution and draped sterilely. Per protocol, using sterile mask, etc. A 1% lidocaine was injected in the left infraclavicular space. Using the Seldinger technique with Arrow blue tip triple-lumen catheter kit, the left subclavian vein was ultimately accessed showing dark nonpulsatile blood. He has a lab standby for a syringe of blood. A syringe was obtained for them and passed to them for other lab studies. Attempts at passage of the flexible J-wire Electronically Signed By: MARGARITA GORMAN MD 07/21/17 1313 PATIENT NAME: ELI HONG OPERATIVE REPORT DATE OF : 44 REPORT #: [id number] PHYSICIAN: MARGARITA GORMAN MD PCP: ROSS LEWIS MD REPORT IS CONFIDENTIAL AND NOT TO BE RELEASED WITHOUT AUTHORIZATION [facility] [address], [place] [address] Signed was unsuccessful despite various efforts and maneuvers to make it so. Initial attempt to the left subclavian side was unsuccessful both medially and laterally. On that basis, the right internal jugular approach was deemed more appropriate. The right neck was prepared with a chlorhexidine solution and draped sterilely and 1% lidocaine injected over the right sternocleidomastoid muscle. Using the Seldinger technique, the right internal jugular vein was easily accessed showing dark nonpulsatile blood. A flexible J-wire was passed down the needle without impediment on this occasion. The site was incised with an #11 blade and dilated with a blue dilator and a previously inspected and irrigated Arrow blue tip triple-lumen catheter passed over the wire and the wire was removed from the distal port. Aspiration on the distal port showed dark nonpulsatile blood. The catheter was withdrawn several centimeters and the enclosed collar device applied and secured to the skin with an enclosed silk suture with a Colby needle. A SorbaView dressing was then applied. A postprocedure chest x-ray confirmed the tip of the catheter in the superior vena cava. No evidence of pneumothorax on the left side. MD KLAUS Delacruz/YAHAIRAL /[id number] cc: MD Rhianna Byrd, MD Ross Lewis MD Copies: KRISTIAN IRENE MD, CYNTHIA MD TOWNSLEY, MALCOLM MD ~ Electronically Signed By: MARGARITA GORMAN MD 07/21/17 1313 PATIENT NAME: ELI HONG OPERATIVE REPORT DATE OF : 44 REPORT #: [id number] PHYSICIAN: MARGARITA GORMAN MD PCP: ROSS LEWIS MD REPORT IS CONFIDENTIAL AND NOT TO BE RELEASED WITHOUT AUTHORIZATION
--- NOTE | 2017-07-21 13:13 | OR ---
[facility] [address] [place], [place] [address] Signed DATE OF OPERATION: 07/14/2017 SURGEON: Margarita Gorman MD PREOPERATIVE DIAGNOSES: 1. Perforated duodenum with retroperitoneal inflammatory process. 2. Recent endoscopic cautery and control of bleeding, second portion of duodenal ulcer. POSTOPERATIVE DIAGNOSES: 1. Perforated duodenum with retroperitoneal inflammatory process. 2. Recent endoscopic cautery and control of bleeding, second portion of duodenal ulcer. PROCEDURES PERFORMED: 1. Exploration of abdomen with drainage and debridement of retroperitoneal space. 2. Primary repair of duodenal perforation (transversely oriented). 3. Omental pedicle flap bolster of repair of duodenum. 4. Decompressive gastrostomy tube with jejunal limb component to second and third portions of duodenum. 5. Feeding jejunostomy (14-Salvadorean red rubber catheter). ASSISTANTS: Nurses (Salty Willis, RN, and Андрей Mckeon, DANNY). ANESTHESIA: General endotracheal, Minoo Orosco, subsequently Moose Rodríguez CRNA. INDICATION: This 76-year-old white man was admitted to the hospital on 07/12/2017, with significant decrease in hematocrit and ultimately melena, considered likely to have upper gastrointestinal bleeding. Fluid resuscitation and transfusion were initiated and he underwent upper endoscopy by me on July 12, 2017. He was found to have a small bleeding area of the stomach, but more importantly a very large bulbar duodenal ulcer with a brumfield white base and no sign of bleeding, but a smaller ulcer in the second portion of the duodenum posteriorly oriented. This was found to have ongoing arterial oozing, but no pulsatile bleeding. The area in question was secured with clips to a good hemostatic level. Biopsy of the stomach showed no evidence of H pylori. He was subsequently treated with continued observation in the intensive care unit with proton pump infusion, H2 mayela infusion, and Carafate. Clear liquids were begun. Within 12 hours to 24 hours, he began having some tachycardia and not feeling well and his hematocrit was noted to have decreased to 18, having been previously about 24 following transfusion. Electronically Signed By: MARGARITA GORMAN MD 07/21/17 1313 PATIENT NAME: ELI HONG OPERATIVE REPORT DATE OF : 44 REPORT #: [id number] PHYSICIAN: MARGARITA GORMAN MD PCP: LIZANDRO QUARLES MD REPORT IS CONFIDENTIAL AND NOT TO BE RELEASED WITHOUT AUTHORIZATION [facility] [address] [place], [place] [address] Signed He was clearly obviously rebleeding. On that basis, he has returned to endoscopic evaluation yesterday, July 13, 2017. Endoscopic evaluation was undertaken in the operating room setting on the possibility he may require laparotomy for control of ulcer bleeding. Upper endoscopy showed the stomach to be without sign of blood. The channel ulcer which was large in healing was intact, but at the second portion of the duodenum, there was a second area of bleeding from ulcerative change. Clips from previous controlled bleeding were in place. The bleeding at this site was more proximal compared to the other bleeding site and had a visible vessel. Epinephrine injection was undertaken with some benefit, but multiple attempts to apply a hemoclip were unsuccessful and pulsatile arterial bleeding was noted. Given his hypotension and so forth and need for transfusion therapy, a more secure method of hemostatic control was needed. Electrocautery was used to allow for complete hemostasis. The visible vessel that was noted was still present, though completely cauterized and surrounding tissue had cautery effect as well. Additional attempts at application of a hemoclip to the area were still unsuccessful. A testimony to somewhat awkward position for application of hemoclip. It was considered in the posterior aspect of the second portion of the duodenum. He had a remarkably stable hematocrit and hemodynamic picture following that, but this morning, was complaining of right lower abdominal pain. He did not have ongoing bleeding so far as could be told and his pain progressed, became right-sided as well as right lower quadrant and repeat hematocrit was 22 down from 24. He had no overt signs of bleeding, however. On the possibility he may have a nonhemorrhagic problem related to ulceration and treatment, a CT scan was performed. This confirmed retroperitoneal air and inflammatory changes in the region of the duodenum extending inferiorly in the retrocolic and other retroperitoneal areas. Obviously, there was perforation almost certainly related to the area of hemostatic control with electrocautery. I have explained all this to the patient and his and have recommended immediate laparotomy and remedy of the problem. The risk of bleeding, infection, multiorgan failure syndrome, fistula development, and other unforeseen complications were reviewed in detail in preparing urgently for operation. He understood and agreed to proceed. FINDINGS: Marked edema was noted in the second portion of the duodenum and the retroperitoneal space there. It extended inferiorly as would be expected to the retroperitoneal tissues and the right colon. A Geena maneuver allowed for exploration of the retroperitoneal space and a full-thickness relatively large perforation of the ulcer site was noted. There was no sign of ongoing bleeding. The duodenal tissue appeared viable and held Electronically Signed By: MARGARITA GORMAN MD 07/21/17 1313 PATIENT NAME: ELI HONG OPERATIVE REPORT DATE OF : 44 REPORT #: [id number] PHYSICIAN: MARGARITA GORMAN MD PCP: LIZANDRO QUARLES MD REPORT IS CONFIDENTIAL AND NOT TO BE RELEASED WITHOUT AUTHORIZATION [facility] [address], [place] [address] Signed sutures reasonably well and primary repair transversely oriented was accomplished. A right omental pedicle flap was used to additionally bolster the repair though it by no means was a primary source of repair. Debridement of the retroperitoneal space was undertaken as well and dissection extended inferiorly as far as edema and so forth let it. There was no food particulates in the retroperitoneal space by any means. Two drains were placed, one more superiorly oriented, the other inferiorly, but both in the region of the repair. Additionally, a feeding jejunostomy was placed about 20 cm from the ligament of Treitz and a decompressive gastrostomy with a jejunal limb with additional holes cut in the jejunal limb to decompress the second and third portions of the duodenum. Leak testing of the repair showed no sign of leak. Additionally, noted were adhesions of the edge of the liver to portions of the colon and omentum related to prior cholecystectomy. Appendix was identified and quite small. The remaining small bowel was normal. There was some old blood within the colon. Decompression of the colon was undertaken through a 14-gauge angiocatheter to allow for decompression of the colon for more exposure. DESCRIPTION OF PROCEDURE: The patient was brought to the operating room, given a general endotracheal anesthetic. Preoperative antibiotic meropenem and Flagyl had been initiated. Sequential compression device stockings were used. After satisfactory general endotracheal anesthesia, the abdomen was prepared with a chlorhexidine solution and draped sterilely. A Smith catheter was placed prior to induction. A midline incision was made extending from the xiphoid to the umbilicus and subsequently taken around the umbilicus to the previous low midline incision. There were markedly distended colonic loops related to old blood in the colon. An upper hand retractor was placed as was a Bookwalter retractor. Small bowel loops were found to be well decompressed and without sign of blood within them, indicating no significant ongoing bleeding from the initial ulcer site. A nasogastric tube was placed and manipulated into position to allow for decompression. There were dense adhesions of the edges of the right lobe of the liver to the omentum and transverse colon. These were taken down with electrocautery with all due care, ultimately exposing well the second portion of the duodenum. Palpation of the antrum of the stomach and the pylorus showed it to be normal. There was marked inflammatory change in the edema lateral to the second portion of the duodenum. A Geena maneuver was undertaken using electrocautery and blunt dissection with all due care, revealing saponified retroperitoneal fatty tissue as well as marked inflammatory change. Ultimately, a bilious fluid area was noted and the offending perforation in the second portion of the duodenum well identified. Electronically Signed By: MARGARITA GORMAN MD 07/21/17 1313 PATIENT NAME: ELI HONG OPERATIVE REPORT DATE OF : 44 REPORT #: [id number] PHYSICIAN: MARGARITA GORMAN MD PCP: LIZANDRO QUARLES MD REPORT IS CONFIDENTIAL AND NOT TO BE RELEASED WITHOUT AUTHORIZATION [facility] [address] [place], [place] [address] Signed It clearly was at the area of prior ulceration. Obviously, the tissue in this area was thinned out related to the ulcer and the defect was approximately a centimeter and half, possibly 2 cm. Further meticulous mobilization of the second portion the duodenum was undertaken to the midline using blunt dissection. The area inferior to this was gently dissected free as well showing inflammatory change in the retroperitoneum including the retrocolic area. Dissection was taken down to where there was no further inflammatory change. The upper portion of the duodenum and the bulbar portion were mobilized as much as reasonable. Examination of the duodenal tissue itself showed to be reasonably healthy despite the ulcerated area. A primary closure of the defect was deemed most advisable. The edges of the duodenal defect were debrided and passed for pathology. Notably, this area with ulceration and quite thinned out. Stay sutures of 3-0 silk were oriented transversely in the second portion of the duodenum to allow for two-layer repair. Interrupted 3-0 PDS suture was used to reapproximate the mucosal layer in an interrupted technique. There appeared to be no further leakage of bilious fluid at that point. The duodenal serosal layer was then reapproximated with interrupted 3-0 silk suture. Area was packed off and plans made for an omental pedicle to additionally bolster this repair. The right portion of the omentum was freed from the transverse colon and the mesocolon and isolated from the stomach itself using transillumination to assure good vascular pedicle to the right side of the omental pedicle graft. This was then manipulated into position where some of the silk sutures which were had remained long were able to be used to secure the omentum directly over the repair. Good viability of the omental pedicle was noted. Irrigation was undertaken more fully. Plans were then made for decompressive gastrostomy. A URIEL gastrojejunal catheter was obtained. Additional holes were cut in the jejunal limb of the device. A gastrotomy was made in the antral portion of the stomach passing the device through the abdominal wall and into the stomach. The balloon was tested and found to be secured. A previously placed 2-0 silk suture in a pursestring configuration was used to more fully secure the stomach to the gastrostomy tube. Interrupted 2-0 silk sutures used to secure the stomach with inflated balloon to the abdominal wall anteriorly. The jejunal limb was manipulated through the pylorus prior to this maneuver and manipulated as far as possible into the second and possibly third portions, though it could not be entirely clear if it went that far. Natural peristalsis may likely carry it further. Electronically Signed By: MARGARITA GORMAN MD 07/21/17 1313 PATIENT NAME: ELI HONG OPERATIVE REPORT DATE OF : 44 REPORT #: [id number] PHYSICIAN: MARGARITA GORMAN MD PCP: LIZANDRO QUARLES MD REPORT IS CONFIDENTIAL AND NOT TO BE RELEASED WITHOUT AUTHORIZATION [facility] [address] [place], [place] [address] Signed Attention was turned towards feeding jejunostomy. Approximately 20 cm from the ligament of Treitz, the segment of the jejunum was brought up to the field and a 3-0 silk suture was used to make a pursestring suture in the center part open with careful blunt electrocautery dissection passing a 14 red rubber jejunal feeding tube into the jejunal limb. Interrupted 3-0 silk sutures used to form a Witzel tunnel. The catheter was delivered to the left side of the abdominal wall and secured to the abdominal wall with interrupted 3-0 silk sutures, taking care to make a relatively long course through which a jejunal segment would be attached to the abdominal wall so as to avoid torsion and obstruction. This tube was then flushed with saline and found to be watertight. Attention was returned to the area of repair. There appeared to be no bilious fluid or other leakage. The gastrojejunal limb was flushed with air with the duodenum submerged under saline showing no sign of leakage in a watertight closure of the offending perforation. Two separate stab incisions were made in the right side of the abdomen allowing for placement of 7 mm Shaggy drains, one oriented medially behind the bulbar and second portion of the duodenum. The other near the second portion of the duodenum extending inferiorly to the midline. The bulkiness of the colon necessitated some sort of decompression. A pursestring suture was placed and a 14-gauge Angiocath used to decompress air from the colon allowing for a more manageable field by this point. The small bowel and omentum were replaced to its natural anatomic configuration. Attention was turned towards closure. The midline fascia was reapproximated with running bidirectional #1 PDS suture. Subcutaneous layer was irrigated with saline solution and skin closed with clips. A Mepilex silver sponge dressing was applied. The drains were attached to bulb suction showing serosanguineous drainage only. The jejunal limb and gastric tubes were applied to suction ultimately and the jejunal feeding tube capped off. Blood loss was about 75 mL. Sponge, needle, and instrument counts reported as correct x3. Margarita Gorman MD Electronically Signed By: MARGARITA GORMAN MD 07/21/17 1313 PATIENT NAME: ELI HONG OPERATIVE REPORT DATE OF : 44 REPORT #: [id number] PHYSICIAN: MARGARITA GORMAN MD PCP: LIZANDRO QUARLES MD REPORT IS CONFIDENTIAL AND NOT TO BE RELEASED WITHOUT AUTHORIZATION [address] [address] Signed JM/MODL /[id number] cc: MD Rhianna Byrd MD Malcolm Townsley, MD Copies: KRISTIAN IRENE MD, CYNTHIA MD TOWNSLEY, MALCOLM MD ~ Electronically Signed By: MARGARITA GORMAN MD 07/21/17 1313 PATIENT NAME: GELYELI LUCIUS OPERATIVE REPORT DATE OF : 44 REPORT #: [id number] PHYSICIAN: MRAGARITA GORMAN MD PCP: LIZANDRO QUARLES MD REPORT IS CONFIDENTIAL AND NOT TO BE RELEASED WITHOUT AUTHORIZATION
--- NOTE | 2017-07-21 14:00 | NUR ---
PATIENT REMAINS IN GOOD SPIRITS. PT HAS BEEN UP TO COMMODE SEVERAL TIMES THUS FAR TODAY AND TOLERATING THIS ACTIVITY WELL. PT HAVING BOWEL MOVEMENTS AND VOIDING TO COMMODE. STOOL IS DARK BROWN AND LIQUID, WITHOUT MELENA OR ANY ODOR OF MELENA. CONTINUE TO MONITOR.
--- NOTE | 2017-07-21 17:18 | NUR ---
PATIENT WORKED WITH PHYSICAL THERAPY AND AMBULATED IN THE CCU HALLS DOWN AND BACK AND TOLERATED VERY WELL OVERALL. PT DENIES FEELING SHORT OF BREATH OR HAVING ANY PAIN DURING THIS AMBULATION. THIS IS BY FAR THE MOST AMBULATION HE HAS HAD IN OVER A WEEK. PATIENT THEN TAKEN TO ROOM 117 VIA SHOWER CHAIR AND SHOWERED WITH THE ASSISTANCE OF ANOTHER RN. PT TOLERATED SHOWER VERY WELL AND WAS VERY THANKFUL FOR THE SHOWER. PT NOW SITTING IN CHAIR WITH CURTAIN OPEN. PT IS ON ROOM AIR CURRENTLY AND SP02 IS HOVERING AT 90% ON ROOM AIR. PT ENCOURAGED TO USE IS. J/G TUBE HOOKED BACK UP TO SUCTION AND TUBE FEEDS RESTARTED AT THIS TIME. PT'S FAMILY LEFT FOR THE TIME BEING BUT WILL RETURN. PT DOES HAVE LOWER EXT EDEMA, 1-2+ IN LOWER LEGS. SCROTUM/PENIS ELEVATED ON PILLOWCASE.
--- NOTE | 2017-07-21 18:30 | NUR ---
PATIENT BACK IN BED AROUND 1814. PT NOW RESTING, WATCHING TV.
--- NOTE | 2017-07-21 19:47 | NUR ---
PT AWAKE IN BED WATCHING TV, DENIES NEEDS OR PAIN.
--- NOTE | 2017-07-22 02:39 | NUR ---
PT CONT TO SLEEP, HR 107 AND RR 26.
--- NOTE | 2017-07-22 02:58 | NUR ---
PT AWAKE, REPOSITIONED IN BED AND GIVEN MOUTH SWABS, REMINDED OF NPO STATUS.
--- NOTE | 2017-07-22 04:15 | NUR ---
UP TO BSC FOR SOFT BM AND VOID THEN BACK TO BED, ASSESSMENT DONE, TRYING TO SLEEP NOW.
--- NOTE | 2017-07-22 08:10 | NUR ---
PT TO XRAY FOR TEST. BACK FROM XRAY AT 0900 AND THEN TO SHOWER. ALL TUBS AND FEEDS CLAMPED DURING THIS PROCESS. PT ORLY ALL OF THIS WELL. FAMILY IS AT THE BEDSIDE
--- NOTE | 2017-07-22 09:00 | NUR ---
PT BACK FROM DIGNOSTIC EXAM, HAD INCONTENIENT EPISODE. PT ONE PERSON ASSIST IN THE SHOWER, AND THEN STAND BY ASSIST BACK TO BED. PT TOLERATED SHOWER WELL, NO SIGNS OF DISTRESS OR DISCOMFORT. PT BACK IN BED. SON AND AT BEDSIDE. CALL LIGHT WITHIN REACH, NO FURTHER NEEDS AT THIS TIME.
--- NOTE | 2017-07-22 10:18 | NUR ---
PT DRANK TWO CHOCOLATE MILKSHAKES, WELL TOLERATED, NO COMPLAINTS OF NAUSEA OR ABDOMINAL DISCOMFORT. PT REMAINS IN BED WITH FAMILY AT BEDSIDE, NO FURTHER REQUESTS AT THIS TIME.
--- NOTE | 2017-07-22 10:43 | NUR ---
AND SON IN WITH PT. SAID LATOSHA, THEY BOTH SMILED AND PT RESPONDED WELL. TODAY IS ADVANCED TO A LIQUID DIET-PT GOT A CHILL, BUT STILL THANKED ME FOR COMING BY. EXTENDED A BLESSING AND WILL FOLLOW NEEDED
--- NOTE | 2017-07-22 12:21 | NUR ---
PT RESTING COMFORTABLY WITH EYES CLOSED, BREATHING EVEN AND UNLABORED. PT FAMILY LEFT FOR LUNCH AT THIS TIME AND WILL RETURN LATER IN THE AFTERNOON. CALL LIGHT WITHIN REACH. NO FURTHER NEEDS AT THIS TIME.
--- NOTE | 2017-07-22 12:45 | NUR ---
PT UP TO BS COMMODED, VOID AND SMALL AMOUNT OF STOOL. PT THEN UP TO CHAIR FOR LUNCH. PT ABLE TO HELP GET HIMSELF OUT OF BED WITH ONLY ONE PERSON TO ASSISTACE HIM. PT DENIES ANY NAUSEA WITH EATTING.
--- NOTE | 2017-07-22 12:59 | NUR ---
PT OFF BIPAP AND ON 6L NC FOR 15 MINUTES, OXYGEN SATURATIONS DROPPED TO 87-90 PERCENT, BREATHING BECAME LABORED WITH RESPIRATORY RATE OF 32. BACK ON BIPAP, RESPIRATORY RATE DECREASED TO MID 20'S AND OXYGEN SATURATIONS 96 PERCENT ON 50% FIO2. VISIBLE FROM NURSES STATION, BED ALARM ON.
--- NOTE | 2017-07-22 14:12 | NUR ---
PT SITTING UP IN CHAIR AFTER LUNCH WATCHING TELEVSION. DECLINED TO WALK WITH PHYSICAL THERAPY. ATE A SMALL AMOUNT OF FULL LIQUIDS FOR LUNCH, WELL TOLERATED, NO COMPLAINTS OF PAIN OR DISCOMFORT. CALL LIGHT WITHIN REACH. NO FURTHER NEEDS AT THIS TIME.
--- NOTE | 2017-07-22 14:46 | NUR ---
PT BACK TO BED AT THIS TIME, MEDICATED WITH 1 PO NORCO AT THIS TIME FOR ABD PAIN. TUBE FEEEDING INFUSING AND HAS BEEN FLUSHED WITH 50MLS WATER. PT IS TIRED AT THIS TIME AND RESTING A THIS TIME.
--- NOTE | 2017-07-22 15:15 | NUR ---
REPORT GIVEN TO BRENDA AND STUDENT BE AT THIS TIME, ALL QUESTIONS ANSWERED. SHOW THEM THE TUBES THAT THE PATIENT HAS. ALL PATIENT BELONGINGS AND PATIENT WENT TO ROOM 116.
--- NOTE | 2017-07-22 15:45 | NUR ---
RECIEVED PATIENT FROM CCU. RN BRENDA SHOWED THIS WALL STEAMER PATIENTS TUBES AND DIFFERENT DRAINS. STUDENT MEENA AND ION ROOM. THIS WALL STEAMER LOCTAED COMMODE AND PLACED IT IN BATHROOM FOR LATER USE. CALL LIGHT IN REACH NO OTHER NEEDS
--- NOTE | 2017-07-22 15:47 | NUR ---
THIS ICT TEACHER AGREES WITH ALL OF SOFTWARE DEVELOPMENT TEST ENGINEER CHIKI CHARTING ON THIS DAY. PT HAS HAD A BUSY DAY TODAY, TO XRAY IN THE MORING, THEN TO SHOWER, UP TO CHAIR FOR LUNCH. PT HAS TOLERATED HIS G/J-TUBE BEING CLAMPED TODAY. THE PATIENT HAS NOT C/O NAUSEA, OR ABD DISCOMFORT THIS AM. PT FAMILY HAS BEEN IN AND OUT TODAY. PT IS ABLE TO FEED HIMSELF AND IS DOING BETTER AT GETTING IN AND OUT OF BED TODAY. PT REMAINS ON 1 LITER OF O2 VIA NC.
--- NOTE | 2017-07-22 15:54 | NUR ---
PT TO FLOOR FROM CCU WITH SN MONET AND DANNY LEZAMA. REPORT RECEIVED FROM DANNY LEZAMA. PT DENIES PAIN. SITTING UP IN BED. MERUM AND TUBE FEED RUNNING. RYDER AT BEDSIDE. CALL LIGHT ON LAP.
--- NOTE | 2017-07-22 16:30 | NUR ---
PT UP TO BEDSIDE COMMODE. MOLD STAMPER AND REPAIRER ASKED FOR ASSISTANCE WITH BED IT WOULD NOT GO DOWN. SHOWN THE NEW SENSORS AND FIXED ISSUE. PT HAD MODERATE AMT LIQUID BM AND URINE OUT. ASSISTED INTO CHAIR AND GIVEN FRESH WATER. PT DENIES CONCERNS.
--- NOTE | 2017-07-22 18:45 | NUR ---
PT ASSISTED TO CHAIR AFTER BEDSIDE COMMODE. HAD SMALL LIQUID STOOL. REMOVED O2 PER PT REQUEST AND CHECKED SATS. REMAINED ABOVE 92% AND INSTRUCTED TO USE IS SEVERAL TIMES AN HOUR. PT AGREED.
--- NOTE | 2017-07-22 19:15 | NUR ---
SHIFT REPORT RECEIVED. PATIENT UP IN RECLINER VISITING WITH FAMILY. DENIES PAIN AT THIS TIME. NO NAUSEA. REQUEST MILK WITH WAS GIVEN TO HIM. FEEDING TUBE INFUSING AT 70 PER HOUR.
--- NOTE | 2017-07-22 20:10 | NUR ---
PATIENT ASSITED BACK INTO BED WITH 2 PERSON SBA. TOLERATED WELL. O2 SAT FOUND TO BE IN LOW 80'S ON ROOM AIR AFTER TRANSFER. SAT 85% AFTER 3MINS RESTING IN BED. 1L NC IN PLACE. O2 SAT UP TO 95%. LEFT ON 1L NC FOR NOW. FAMILY LEAVING FOR THE NIGHT. CALL LIGHT IN REACH.
--- NOTE | 2017-07-22 21:00 | NUR ---
GRAPE CRUSHER ASSIT IN STARTING SCHEDULED ABX
--- NOTE | 2017-07-22 21:17 | NUR ---
WITH THE HELP OF DANNY JIMENEZ WE HELPED PT TO THE BED WITH HIS FWW. WARM BLANKET GIVEN, SCDS HOOKED UP. BEDSIDE TABLE AND CALL LIGHT WITHIN REACH.
--- NOTE | 2017-07-22 21:30 | NUR ---
EVENING MEDS GIVEN PER ORDER. PATIENT HAD BEEN SLEEPING. WOKE EASILY TO VOICE. ORIENTED X4. LUNGS ARE CLEAR, DIMINISHED IN BASES. DENIES PAIN AT REST. ABD IS FIRM, ROUND, AND TENDER. BOWEL SOUNDS ACTIVE TO HYPER ACTIVE. NO NAUSEA. TOLERATING FULL LIQUIDS. FEEDING TUBE RUNNING AT 70CC/HR. FLUSHED WITH 50ML WATER PER ORDER. MIDLINE INCISION IS WELL APPROXIMATED, KASSIE OPEN TO AIR. GJ TUBE CLAMPED, SITE APPEARS WNL. NARA DRAINS 2X, MINIMAL DRAINAGE THAT IS YELLOW IN COLOR. INSERTION SITES WNL. PATIENT COMPLAINS OF SCROTAL DISCOMFORT, EDEMA NOTED. ELEVATED TO REDUCE PRESSURE. CMS INTACT. SCDS IN USE. IV ABX INFUSING PER ODER, IV SITE WNL. PATIENT DENIES OTHER NEEDS. BEDSIDE TABLE WITHIN REACH. CALL LIGHT IN LAP.
--- NOTE | 2017-07-22 21:36 | NUR ---
VITALS AND I&OS DONE AND CHARTED. FRESH ICE WATER GIVEN. BEDSIDE TABLE AND CALL LIGHT WITHIN REACH.
--- NOTE | 2017-07-23 01:10 | NUR ---
NEW BAG OF FORMULA STARTED FOR CONTINUOUS FEEDINGS. PATIENT REQUEST TO GET UP TO THE BATHROOM. ENCOURAGED PATIENT TO WALK INTO BATHROOM SINCE HE IS NOW SALINE LOCKED AND FEEDING TUBE TEMP DISCONNECTED. PATIENT AMBULATED W/FWW, TOLERATED WELL. PATIENT HAD LIQUID STOOL. ASSITED BACK TO BED. DENIES NEED FOR PRN PAIN MEDS. REQUEST NOT TO WEAR O2, SAT 86% ON ROOM AIR. ENCOURAGED PATIENT TO WEAR WHILE SLEEPING AND HE AGREED. FEEDING TUBE RECONNECTED. POSITIONED FOR COMFORT. BEDSIDE TABLE WITHIN REACH. CALL [facility] IN [place].
--- NOTE | 2017-07-23 02:19 | NUR ---
SCHEDULED IV ABX STARTED. PATIENT APPEARED TO BE SLEEPING, WOKE EASILY TO VOICE. DENIES PAIN OR NEEDS. CALL LIGHT IN REACH. 1L NC. TUBE FEEDING INFUSING PER ORDER.
--- NOTE | 2017-07-23 04:15 | NUR ---
PATIENT APPEARS TO BE SLEEPING SOUNDLY. RR 18. IV ABX INFUSING. CALL LIGHT IN REACH.
--- NOTE | 2017-07-23 06:10 | NUR ---
PATIENT SLEPT MOST OF THE NIGHT. ORIENTED X4. CALLED APPROPRIATELY. USED URNAL IN BED, UP TO BATHROOM X1 FOR LOOSE STOOL. OUTPUT QS. IV ABX PER ORDER. TUBE FEEDING 70CC/HR. FLUSHED Q8HR. NARA DRAINS X2, SMALL AMOUNT OF YELLOW DRAINAGE. GJ TUBE CLAMPS. NO NAUSEA. MIDLINE INCISION OPEN TO AIR, WNL. SCDS IN USE. 1-2PA W/FWW. PATIENT ONLY PAINFUL WITH MOVEMENT, NO PRN PAIN MEDS.
--- NOTE | 2017-07-23 06:45 | NUR ---
ASSISTED PATIENT TO THE BATHROOM. EDUCATED PATIENT ON USING HAND RAILS TO GET HIMSELF OUT OF THE BED WITH MINIMAL PAIN. PATIENT ABLE TO TRANSFER AND WALK TO BATHROOM WITH SBA W/FWW. PATIENT HAD SOME MORE LOOSE BM, LIGHT BROWN IN COLOR. ASSISTED PATIENT TO THE RECLINER. PATIENT DENIES PAIN. O2 SAT AFTER TRANSFER 90% ON ROOM AIR. PATIENT REQUESTED NO O2 AT THIS TIME AND RN AGREED. FEEDING TUBE FLUSHED WITH 50ML TAP WATER. FEEDING CONTINUED AT 70ML/HR. PATIENT DENIES FURTHER NEEDS. CALL LIGHT IN LAP.
--- NOTE | 2017-07-23 07:30 | NUR ---
CHANGED FEEDING TUNE BAG. ADDED 3 CANS OF 1.5 LANA VITAL. FLUSHED FEEDING TUBE. RESTARTED FEEDING AT CONTINUED RATE. PATIENT TOLERATING FEEDING. NO ABD PAIN OR NAUSEA AT THIS TIME.
--- NOTE | 2017-07-23 07:33 | NUR ---
PATIENT IN BED, APPEARS TO BE SLEEPING. THIS MANAGER PAPER CLEANED TABLED TOP OFF WITH RED WIPES, CALL LIGHT IN REACH
--- NOTE | 2017-07-23 07:50 | NUR ---
PATIENT CALLED FOR ASSISTANCE TO EDGE OF BED FOR BREAKFAST. PATIENT OUT OF BED LEFT SIDE, TOLERATED WELL. IN ROOM. CALL LIGHT IN REACH.
--- NOTE | 2017-07-23 08:10 | NUR ---
PATIENT CALLED TO LAY BACK DOWN, FEED TUBING CAME APART WHILE TRANSFERRING, LEAKING ON PATIENT AND BEDDING. DANNY HUSAIN NOTIFIED. RN AND THIS CUSTOMS PATROL OFFICER CLEANED PATIENT, NEW GOWN ON AND CHANGED LINENS. FRESH PILLOW GIVEN TO WELL. PATIENT UP IN CHAIR. GARBEAGE EMPTIED. CALL LIGHT IN REACH. NO OTHER NEEDS
--- NOTE | 2017-07-23 08:45 | NUR ---
STANDBY ASSIST FROM BATHROOM BACK TO CHAIR. IN ROOM, NEW TUBE TOOTHPASTE GIVEN TO . LEGS ELEVATED, FRESH ICEWATER GIVEN. CALL LIGHT IN REACH
--- NOTE | 2017-07-23 09:09 | NUR ---
PATIENT WORKING WITH PT. PATIENT TOLERATING AMBULATING IN MALONE WITH ONE PERSON ASSIST AND WALKER. FEEDING CONT AT 75 CONT. ANTIBIOTIC STARTED. PATIENT DENIES NEED FOR PAIN MEDICATION AT THIS TIME.
--- NOTE | 2017-07-23 09:39 | NUR ---
PATIENT BACK FROM AMBULATION WITH PT. TOLERATED WELL. REFUSING PAIN MEDICATION AT THIS TIME. PATIENT STATING ONLY PAIN WHEN GETTING UP AT FIRST THEN GOES AWAY. VITALS TAKEN. MONITORING IV. FLUSHED WITH MILD PAIN. PUT AFTER ANOTHER FLUSH NO MORE PAIN. WILL MONITOR.
--- NOTE | 2017-07-23 10:04 | NUR ---
ASSISTED BACK TO BED SO PATIENT CAN REST. REQUESTING 1 NORCO FOR 2/10 PAIN.
--- NOTE | 2017-07-23 11:15 | NUR ---
PATIENTS EXPRESSING ANXIETY ABOUT BEING TOO FAR AWAY FROM NURSING STATION. EXPRESSED THAT THEY WOULD LIKE A CLOSER ROOM. PLAN TO MOVE PATIENT WHEN OPEN ROOM BECOMES AVAILABLE. UPDATED PATIENT AND FAMILY ABOUT PLAN OF CARE. ANTIBIOTIC CONTINUES TO RUN WNL. FEEDING IN PLACE. PATIENT REPORTS NO NAUSEA. RESTING IN BED WITH HOB ELEVATED. FRIEND IN ROOM AT THIS TIME.
--- NOTE | 2017-07-23 12:55 | NUR ---
UPDATE GIVEN FROM DR. IRENE. PLAN FOR ANOTHER DOSE OF LASIX. UPDATED DR. IRENE ABOUT PLAN TO TRANSFER PATIENT TO ROOM 112. PATIENT STATING PAIN GOOD AT THIS TIME.
--- NOTE | 2017-07-23 12:55 | NUR ---
PATIENT UP IN BED WATCHING TV, FAMILY IN ROOM. GARBAGE EMPTIED, PATIENT DENIES AND NEEDS AT THIS TIME, CALL LIGHT IN REACH
--- NOTE | 2017-07-23 14:00 | NUR ---
IV LASIX GIVEN. ANTIBIOTICS STARTED. FLUSHED FEEDING TUBE WITH 50MLS OF WATER. NO RESIDUAL NOTED. PATIENT CONTINUES TO HAVE ACTIVE BS. NO NAUSEA. PAIN OKAY AT THIS TIME. PATIENT VOIDING VIA URINAL. MOVED TO ROOM 112.
--- NOTE | 2017-07-23 14:08 | NUR ---
PT MOVED TO M/S, AND SEEMED PLEASED WITH IMPROVEMENT. HE DID HOWEVER SAY THAT HE WAS NOT "INPROVING FAST ENOUGH". I WILL CONTINUE TO FOLLOW NEEDED
--- NOTE | 2017-07-23 14:24 | NUR ---
PATEINT TRANSFERRED FROM 116 TO 112 ON BED. FAMILY IN ROOM. VITALS AND I/OS CHARTED. 2ND URINAL WAS GIVEN, BOTH ON BED RAILING. FAMILY AND FRIENDS IN ROOM.CALL LIGHT IN REACH. NO OTHER NEEDS
--- NOTE | 2017-07-23 15:43 | NUR ---
DR. GORMAN ROUNDED IN ROOM. OKAY TO CLAMP FEEDING TUBE. NEW ORDER TO REMOVE KASSIE. ADVANCE DIET. ALL INFORMATION GIVEN TO PATIENT AND PATIENTS FAMILY. PATIENT ASKED TO VOID AGAIN VIA URINAL BEFORE KASSIE ARE REMOVED.
--- NOTE | 2017-07-23 16:09 | NUR ---
jessica removed. steri strips applied. patient tolerated well. norco 1 tab given for 1/10 pain in abd.
--- NOTE | 2017-07-23 16:18 | NUR ---
PATIENT IN BED, READING MAGAZINE, FAMILY ON COUCH. CALL LIGHT IN REACH. PATIENT AND FAMILY DENY ANY NEEDS
--- NOTE | 2017-07-23 16:46 | NUR ---
PATEINT ASSISTED TO CHAIR WITH A ONE PERSON ASSIST. TOLERATED WELL. PATIENT ASKED TO DEMONSTRATE IS. MEDICATION GIVEN.
--- NOTE | 2017-07-23 17:08 | NUR ---
PATIENT UP IN CHAIR, LEANING OVER SIDE TABLE TO STRETCH HIS BACK. DENIES ANY NEEDS OR PAIN AT THIS TIME. IN ROOM CALL LIGHT IN REACH
--- NOTE | 2017-07-23 17:30 | NUR ---
ELI ASSISTED TO BED. PATIENT STATING HE IS " I AM SO TIRED TONIGHT". PATIENT TOLERATED 25 PERCENT OF HIS SOFT DIET. PATIENT HAVING NO NAUSEA AT THIS TIME. VITALS TAKEN. NO OTHER COMPLAINT. STEPHENNET REQUESTING TO SLEEP AT THIS TIME.
--- NOTE | 2017-07-23 17:55 | NUR ---
PATIENT LYING IN BED, EYES CLOSED, FAMILY GONE. VITALS AND I/OS CHARTED. PATIENTS RADIAL PULSE WAS 102, O2 93 ON ROOM AIR. PATIENT REPORTS HE FEELS PRETTY EXHAUSTED AFTER BEING UP IN CHAIR THIS AFTERNOON CALL LIGHT IN REACH. NO OTHER NEEDS AT THIS TIME
--- NOTE | 2017-07-23 18:11 | NUR ---
PATIENT DOING WELL THIS MORNING. AMBULATED IN MALONE WITH PT. SITTING IN CHAIRS FOR MEALS. HAS BEEN ON RA WHILE AWAKE. IS EDUCATION GIVEN THROUGHOUT THE DAY. NEW ORDERS TO CLAMP FEEDING TUBE. CONTINUE FLUSHING Q 6 HRS WITH 50MLS OF WATER. CLAMPED GJ TUBE. JPS X2. MINIMAL DRAINAGE. MIDLINE INCISION KASSIE REMOVED THIS AFTERNOON. PT TOLERATED WELL. STERI STRIPS IN PLACE. LASIX GIVEN ONCE. GOOD UOP. BM TODAY. DIET ADVANCED TO SOFT.
--- NOTE | 2017-07-23 18:34 | NUR ---
PATIENT SLEEPING. SPOT CHECKED PATIENTS OXYGEN WHILE SLEEPING. OXYGEN LEVEL 88 PERCENT. PLACED ON 2 L PER NC. PTS SATS WENT TO 93 PERCENT.
--- NOTE | 2017-07-23 19:05 | NUR ---
SHIFT REPORT RECEIVED. PATIENT RESTING IN BED. HE HAD JUST USED THE URNAL AND REQUESTED SOME AUBRIE CARE DUE TO SOME LOOSE STOOL. DAY RN RODRIGUE ASSISTED HIM. NO OTHER NEEDS AT THIS TIME. CALL LIGHT IN REACH.
--- NOTE | 2017-07-23 20:07 | NUR ---
HELPED PT TO THE BATHROOM AND BACK TO BED. SCDS HOOKED BACK UP. BEDSIDE TABLE AND CALL LIGHT WITHIN REACH. PT NEEDS NOTHING ELSE AT THIS TIME.
--- NOTE | 2017-07-23 20:28 | NUR ---
ROUNDED CHARGE. PATIENT IS RESTING IN BED WATCHING TV. PATIENT DENIES ANY COMMENTS, QUESTIONS, OR CONCERNS. NO NEEDS NOTED. CALL LIGHT IN REACH.
--- NOTE | 2017-07-23 21:45 | NUR ---
PATIENT SLEEPING SOUDNLY. WOKE EASILY TO TOUCH. PATIENT DENIES PAIN. 1L NC WHILE SLEEPING. EVENING PILLS PROVIDED. NO NAUSEA. BOWEL SOUNDS ACTIVE, FIRM ABD WHICH IS TENDER. MIDLINE INCISION IS WELL APPROXIMATED, STERI STRIPS IN PLACE. GJ TUBE IS CLAMPED, SITE WNL. NARA DRAINS X2, SCANT YELLOW DRAINAGE. SITE WNL. PATIENT HAS SOME GENERALIZED EDEMA, POSITIONED TO REDUCE SKIN BREAKDOWN. SCROTAL EDEMA HAS IMPROVED. FEEDING TUBE IS CLAMPED, FLUSHED WITH 50MLS TAP WATER PER ORDER. SCDS IN USE. NO OTHER NEEDS AT THIS TIME. CALL LIGHT IN REACH.
--- NOTE | 2017-07-24 00:15 | NUR ---
PATIENT WAS INCONTINENT OF STOOL IN THE BED. PRODUCT ANALYST ASSISTED HIM IN AUBRIE CARE, GOING TO THE BATHROOM AND A LINEN CHANGE.
--- NOTE | 2017-07-24 04:13 | NUR ---
PATIENT UP TO THE BATHROOM. 1PA. TOLERATED WELL. DENIES PAIN ONCE HE IS BACK IN BED. SCDS IN USE.
--- NOTE | 2017-07-24 06:20 | NUR ---
MORNING MEDS GIVEN. PATIENT RESTING IN BED. DENIES PAIN. HE IS LOOKING FORWARD TO BREAKFAST. FEEDING TUBE FLUSHED. NARA X2 DRAINED. MINIMAL YELLOW/CLEAR OUTPUT. NO OTHER NEEDS AT THIS TIME.
--- NOTE | 2017-07-24 06:27 | NUR ---
VITALS AND I&OS DONE AND CHARTED. FRESH ICE WATER GIVEN. BEDSIDE TABLE AND CALL LIGHT WITHIN REACH.
--- NOTE | 2017-07-24 06:31 | NUR ---
ASSISTED PATIENT UP TO RECLINER. MILK PROVIDED PER REQUEST. CALL LIGHT IN LAP. NO OTHER NEEDS.
--- NOTE | 2017-07-24 06:57 | NUR ---
PATIENT SLEPT WELL LAST NIGHT. NO PAIN. TOLERATING SOFT DIET. NARA X2 HAS MINIMAL DRAINAGE OVER THE SHIFT, YELLOW/CLEAR. MIDLINE IS OPEN TO AIR, WELL APPROXITED. FEEDING TUBE IS CLAMPED. 1PA W/FWW.
--- NOTE | 2017-07-24 09:30 | NUR ---
PATIENT UP AMBULATING IN HALLS COMPLETED ONE LAP. THEN TO BATHROOM, AND BACK TO BED. PATIENT STATED " THAT WORE ME OUT". DRAINS HAVE SMALL AMOUNT OF DRAINAGE IN THEM, BOWEL TONES ACTIVE. VS STABLE. CONTINUES TO HAVE LOOSE STOOLS. TOLERATING SOFT DIET, STATES " SO GOOD TO HAVE SOME REAL FOOD".
--- NOTE | 2017-07-24 10:42 | NUR ---
UP AMBULATING ANOTHER LAP, TOLERATING WELL. COMPLAINS OF "SOMETHING TUGGING"
--- NOTE | 2017-07-24 11:15 | NUR ---
PATIENT AMBULATED IN THE HALLWAY.
--- NOTE | 2017-07-24 11:46 | NUR ---
DR. GORMAN TO ROOM TO ROUND ON PATIENT, PLAN TO DISCHARGE HOME TOMORROW. ORDER TO DC IV TO LEFT ARM, NOTED SOME ERYTHEMA. ONE DRAINED PULLED, HOWEVER OTHER LEFT IN PLACE.
--- NOTE | 2017-07-24 14:30 | NUR ---
PATIENT HAS NO COMPLAINTS OF PAIN, UP RESTING IN RECLINER, FAMILY AT BEDSIDE. PATIENT APPEARS COMFORTABLE EATING LUNCH. TOLERATING FOOD WELL. VS STABLE.
--- NOTE | 2017-07-24 19:02 | NUR ---
AMBULATED 3X IN HALLS TODAY, SHOWERED THIS EVENING. 1 NARA DRAIN REMOVED AND FEEDING TUBE CONTINUES TO BE CLAMPED. PATIENT UP MOST OF DAY, 2+ PITTING EDEMA TO LOWER EXTREMITIES SON. 20 MG PO LASIX. VS STABLE.
--- NOTE | 2017-07-24 19:20 | NUR ---
IN ROOM FOR REPORT, PT IS AWAKE IN BED. HE DENIES NEEDS AT THIS TIME. CALL LIGHT IS WITHIN REACH.
--- NOTE | 2017-07-24 21:05 | NUR ---
IN ROOM TO ASSESS PT AND GIVE EVENING MEDS. NARA DRAIN EMPTIED AND YELLOW IN COLOR. REPOSITIONED PT IN BED.
--- NOTE | 2017-07-24 23:15 | NUR ---
REPOSITIONED PT IN BED. PT DENIES FURTHER NEEDS.
--- NOTE | 2017-07-24 23:58 | NUR ---
PT CALLED TO USE RESTROOM, HELPED HIM TO THE RESTROOM AND BACK TO BED.
--- NOTE | 2017-07-24 23:59 | NUR ---
PT STATES HIS PAIN IS 2/10 AT THIS TIME. PAIN MEDS GIVEN. PT DENIES FURTHER NEEDS.
--- NOTE | 2017-07-25 01:35 | NUR ---
PT CALLED TO HAVE URINAL EMPTIED, BROUGHT PT FRESH ICEWATER.
--- NOTE | 2017-07-25 01:55 | NUR ---
PT REQUESTED HIS SOCKS BE REMOVED AND SCDS FOR A WHILE. HE DENIES FURTHER NEEDS AT THIS TIME.
--- NOTE | 2017-07-25 03:02 | NUR ---
PT CALLED, HE CANNOT SLEEP AND REQUESTED TO SIT IN THE RECLINER. PT DENIES FURTHER NEEDS AT THIS TIME. CALL LIGHT IS WITHIN REACH.
--- NOTE | 2017-07-25 06:45 | NUR ---
NARA DRAIN EMPTIED 10 MLS OF YELLOW THICK FLUID. FLUSHED FEEDING TUBE WITH 50CC. PT DENIES PAIN AT THIS TIME. ALSO TAUGHT HIM HOW TO EMPTY NARA DRAIN AT HOME. WARM BLANKETS PROVIDED AND PT DENIES FURTHER NEEDS.
--- NOTE | 2017-07-25 08:35 | NUR ---
PATIENT UP TO BATHROOM FOR SHOWER WITH STANDBY ASSIST WITH FWW. IN ROOM. LINENS CHANGED. ORAL CARE DONE.
--- NOTE | 2017-07-25 09:07 | NUR ---
SHOWERED PATIENT AND PROVIDED NEW GOWN AND SOCKS. PATIENT SITTING UP IN RECLINER NOW. PRESENT IN ROOM. LINEN BAGS EMPTIED IN PASS THROUGH.
--- NOTE | 2017-07-25 09:58 | NUR ---
PATIENT SITTING UP IN CHAIR WATCHING TV WITH IN THE ROOM. CALL BUTTON IN REACH. FRESH ICE WATER GIVEN. CALL BUTTON IN REACH. NO OTHER NEEDS AT THIS TIME
--- NOTE | 2017-07-25 11:44 | NUR ---
DR. IRENE ROUNDED ON PATIENT. ANSWERED QUESTIONS AND CONCERNS. NOTED SOME REDNESS TO RIGHT UPPER ARM CLOSE TO WHERE IV SITE WAS DISCONTINUED. WARM TO TOUCH, PATIENT DENIES PAIN. INCREASED REDNESS FROM YESTERDAY AND SOME HARDNESS NOTED UPON TOUCH TO SITE.
--- NOTE | 2017-07-25 11:51 | NUR ---
DR. IRENE ASSESED INFLAMMATION TO RIGHT UPPER ARM, NOTED THROMBOPHYEBITIS. PROVIDED PATIENT WITH ICEPACK AND THERE WILL BE A TOPICAL OINTMENT. PATIENT AND UNDERSTAND POC. ALSO CALLED [facility] AND VERIFIED IF CARAFATE COULD BE CRUSHED FOR BETTER CONSUMPTION, REPORTED OKAY TO CRUSH.
[2017-07-25] MEDS ORDERED: MAPAP500 M1 PO (12:37)
[2017-07-25] MEDS ORDERED: FUROSEMIDE20 MG PO (12:37)
[2017-07-25] MEDS ORDERED: KLOR-CON 1010 MEQ PO (12:37)
[2017-07-25] MEDS ORDERED: SUCRALFATE1 GM PO (12:38)
[2017-07-25] MEDS ORDERED: PANTOPRAZOLE SO40 MG PO (12:39)
[2017-07-25] MEDS ORDERED: METOPROLOL SUCC25 MG PO (14:23)
--- NOTE | 2017-07-25 15:15 | NUR ---
PATIENT DISCHARGED HOME. PROVIDED DISCHARGE EDUCATION TO PATIENT AND . DISCUSSED IN DETAIL SOFT KINDS OF FOOD TO EAT THAT ARE EASY FOR DIGESTION. PROVIDED HAND OUT INFORMATION WITH FOODS LISTED. PATIENT ABLE TO SELF DEMONSTRATE DRAINING NARA DRAIN, AND APPEARS TO VERBALIZE UNDERSTANDING. HANDOUTS FOR TUBE MANAGMENT PROVIDED TO PATIENT. DISCUSSED S/S OF INFECTION AND IMPORTANCE OF FOLLOW UP WITH DR. GORMAN AND HIS PCP. ANSWERED QUESTIONS AND CONCERNS. PROVIDED EDUCATION FOR TOPICAL CREAM TO BE APPLIED TO ARM AT INSERTION SITE OF IV AND TO APPLY ICE TO REDUCE SWELLING AND IRRITATION. NO SCRIPTS OF PAIN MEDICATION, PAIN CONTROLLED WITH TYLENOL.
--- NOTE | 2017-07-27 08:49 | DS ---
[facility] [address], [place] [address] Signed ADMISSION DATE: 07/12/2017 DISCHARGE DATE: 07/25/2017 REASON FOR ADMISSION: Progressive upper GI bleeding. HISTORY OF PRESENT ILLNESS: This 76-year-old white man with known history of coronary artery disease and history of stent placement with daily use of aspirin, presented with nausea and stomach upset for the preceding 2 weeks. He had no associated vomiting, but did have upper abdominal pain. He noted very dark stools 2 days prior to his current evaluation in the emergency room. The patient had a feeling of being lightheaded and weak and presented to the emergency room. He was found to have hypotension and a hemoglobin at only 8.5. He had an elevated BUN and creatinine ratio of 60. He was admitted for upper gastrointestinal bleeding with hypotension to the service of Dr. Mcpherson, hospitalist. PERTINENT PHYSICAL AT TIME OF ADMISSION: GENERAL: Included a cooperative, nondelirious patient. He had reasonably moist mucosal membranes. CHEST: Heart was regular without murmur. He had no respiratory distress. No evidence of congestive heart failure. There was no abdominal tenderness. EXTREMITIES: Showed no clubbing, cyanosis, or edema. LABORATORY STUDIES: Showed creatinine of 1.18. Pro-time was 12.9 with an INR of 0.9. His white count was 14.3, hematocrit 24.9, and platelet count 382,000. HOSPITAL COURSE: The patient was immediately transfused upon presentation and urgent surgical consultation undertaken. He was identified as having prior history of "peptic ulcer" at age 20, which presented primarily with hematemesis. He takes no medications for ulcer treatment. He has previously taken Zantac on a daily basis. Though he had no hematemesis, it was considered likely he had upper gastrointestinal source of bleeding. He was given transfusion therapy given his hemodynamic picture and low hematocrit. Upper endoscopy was performed within a few hours of his presentation on July 12, 2017. He was found to have a large healing ulcer of the pyloric channel, but in the 2nd portion of the duodenum, an area of ulceration with active bleeding and a visible vessel. This was secured with hemoclips and vigorous irrigation showed no sign of ongoing bleeding. He was initiated on Carafate as well as PPI medication and allowed to have clear liquids. Electronically Signed By: MARGARITA GORMAN MD 07/27/17 0849 PATIENT NAME: ELI HONG DISCHARGE SUMMARY DATE OF : 44 REPORT #: [id number] PHYSICIAN: MARGARITA GORMAN MD PCP: ROSS LEWIS MD REPORT IS CONFIDENTIAL AND NOT TO BE RELEASED WITHOUT AUTHORIZATION [facility] [address], [place] [address] Signed Through that evening, he was monitored closely in the intensive care unit and did have an episode of diaphoresis with a blood pressure that dropped to 60 systolic. His hematocrit had dropped from a stable level of 24 to 20 and he was noted to have more melena. Although he had no hematemesis, he was still having some melena and therefore considered likely to have recurrent bleeding or additional bleeding. On July 13, 2017, he underwent repeat upper endoscopy where he was noted to have a new bleeding site in the 2nd portion of the duodenum separate and distinct from that area already secured with hemoclips. Hemoclips could not be applied to this new area of bleeding.A Visible vessel with arterial bleeding was noted at this site. Epinephrine injection and so forth was ineffective in controlling the bleeding and ultimately electrocautery was used to secure the bleeding site in the posterior aspect of the 2nd portion of the duodenum. Photographs were taken. Although the patient had no further evidence of bleeding and continued monitoring in the intensive care unit showed his hematocrit to be stable, but he began having right lower and right-sided abdominal pain. His hospitalist care was taken over by Dr. Rhianna Monte. Since he was clinically improved regarding hemostasis, he was now with abdominal pain, which was of uncertain etiology. On that basis, a CT scan was performed confirming a perforation of the duodenum almost certainly at the site of the ulcer from endoscopic control of the bleeding site. He was given broad-spectrum antibiotic meropenem, Flagyl, and Diflucan and taken to operation on July 14, 2017. He was found indeed to have a perforation of posterior duodenum in the 2nd portion, no doubt related to endoscopic hemostasis of the bleeding ulcer. Debridement of the ulcer site and perforation was undertaken and primary closure undertaken. It was closed transversely in a two layer technique with the addition of an omental graft. Additionally, 2 drains were placed; one behind the right colon after mobilizing it and demonstrating marked inflammatory change and some saponification (but no food contamination since n.p.o.) Another drain was placed cephalad to the 2nd portion of the duodenum in the region of the portal triad. Additionally, a feeding jejunostomy was placed at least 20 cm from the ligament of Treitz and a GJ tube placed through the stomach with the jejunal limb passed into the 2nd and 3rd portions of the duodenum allowing for suction on the jejunal limb and gastric limb. He was taken back to the Electronically Signed By: MARGARITA GORMAN MD 07/27/17 0849 PATIENT NAME: ELI HONG DISCHARGE SUMMARY DATE OF : 44 REPORT #: [id number] PHYSICIAN: MARGARITA GORMAN MD PCP: ROSS LEWIS MD REPORT IS CONFIDENTIAL AND NOT TO BE RELEASED WITHOUT AUTHORIZATION [facility] [address], [place] [address] Signed intensive care unit for further management. Postoperatively, he was maintained with suction on the jejunal and gastric limb of a gastrostomy tube. A nasogastric tube that was placed intraoperatively was removed at 1st postoperative day. Drainage from the right periduodenal drains showed no evidence of bilious fluid. I had placed a central venous line at the night of operation for pressor agents that were required in the early postoperative period. He was managed for several days by Dr. Hooker in my absence as well as Dr. Monte. Upon my return, the patient was noted to be progressing nicely, maintained on broad-spectrum antibiotic meropenem, Flagyl and Diflucan. Enteral tube feedings were well tolerated with an elemental formula. He had progressive improvement and diminishment of retroperitoneal drainage. Seven days postoperatively, he was taken to the radiology suite where an upper gastrointestinal series was undertaken showing no evidence of leakage from the duodenal repair in the second portion of the duodenum. His diet was then advanced from clear liquids to full liquids and ultimately a mechanical soft diet. Once good oral intake was assured, the jejunal tube feeds were discontinued. The drainage from the retroperitoneal drains became progressively clear and one of the drains was removed prior to discharge. Notably, the patient had a fair amount of blood transfusion requirement ultimately sustaining an 11 unit transfusion over the course of his hospitalization. At time of discharge, he is ambulating well with assistance. He has good oral intake on mechanical soft diet. The remaining single paraduodenal drain shows nearly clear fluid and is anticipated to be removed soon. The feeding jejunal tube is in position as is the gastrojejunal feeding tube neither of which are being used at present. The midline incision is healing well. His ulcer regimen is maintained to include Protonix b.i.d. and Carafate q.i.d. He is no longer on antibiotics. DISCHARGE MEDICATIONS: Will include: 1. Tylenol 500 mg p.o. q.4 hours as needed for pain. 2. Potassium chloride 20 mEq p.o. b.i.d., #10. 3. Lasix 20 mg p.o. b.i.d., #10. 4. Carafate 1 g p.o. q.i.d. on empty stomach, #120, refill none. 5. Pantoprazole 40 mg p.o. b.i.d., #60, refill #6. 6. He will continue his usual medication including aspirin enteric-coated 81 mg p.o. daily. 7. Synthroid 125 mcg p.o. daily. Electronically Signed By: MARGARITA GORMAN MD 07/27/17 0849 PATIENT NAME: ELI HONG DISCHARGE SUMMARY DATE OF : 44 REPORT #: [id number] PHYSICIAN: MARGARITA GORMAN MD PCP: ROSS LEWIS MD REPORT IS CONFIDENTIAL AND NOT TO BE RELEASED WITHOUT AUTHORIZATION [address] [address] Signed 8. Lisinopril 10 mg p.o. daily. 9. Metoprolol 25 mg extended release, Wednesday, Wednesday, , and Wednesday. 10. Pravastatin 40 mg p.o. daily. 11. Nitroglycerin 0.4 mg sublingual as needed for chest pain. 12. Metoprolol 25 mg tablets 1/2 tab p.o. q. Wednesday, Wednesday, and Wednesday. PLANS: He is return to see me at the end of this coming week or early the next for drain and gastrostomy and jejunostomy tube removal. He has recommended to walk on a daily basis and lift no more than 20 pounds for the next 3 weeks. He is permitted to shower. DISCHARGE DIAGNOSES: 1. Profound gastrointestinal bleeding from complex duodenal ulcer. 2. Status post upper endoscopy with control of initial hemorrhage with clips. 3. Recurrent bleeding, status post upper endoscopy with hemostatic control of arterial bleeding with cautery. 4. Perforation of 2nd portion of the duodenum related to endoscopic control of bleeding, requiring laparotomy, duodenal closure, retroperitoneal debridement and placement of drains and placement of gastrostomy and jejunostomy drains. 5. History of cardiac disease with history of coronary stenting. 6. Hypertension. 7. Distant history of upper gastrointestinal bleeding, age 20 related to peptic ulcer disease. MD KLAUS Delacruz/MODL /[id number] cc: Raya Davidson MD [place] MD Jorge Acosta MD Electronically Signed By: MARGARITA GORMAN MD 07/27/17 0849 PATIENT NAME: ELI HONG DISCHARGE SUMMARY DATE OF : 44 REPORT #: [id number] PHYSICIAN: MARGARITA GORMAN MD PCP: ROSS LEWIS MD REPORT IS CONFIDENTIAL AND NOT TO BE RELEASED WITHOUT AUTHORIZATION [address] [place] [address] Signed Ross Lewis MD Copies: TORRI HOOKER MD, LOHITH VEERAPPA MD TOWNSLEY, MALCOLM MD ~ Electronically Signed By: MARGARITA GORMAN MD 07/27/17 0849 PATIENT NAME: ELI HONG DISCHARGE SUMMARY DATE OF : 44 REPORT #: [id number] PHYSICIAN: MARGARITA GORMAN MD PCP: ROSS LEWIS MD REPORT IS CONFIDENTIAL AND NOT TO BE RELEASED WITHOUT AUTHORIZATION
== END 2017-07-25 15:15 | disposition home or self-care (01) | DRG 326 ==
LOC: ED 09:20 → CCU 12:00 → MS 07-22 15:38
PROVIDERS: Surgery; ADMIT Internal Medicine
PROC: 0DB68ZX Excision of Stomach, Via Natural or Artificial Opening Endoscopic, Diagnostic (ICD-10-PCS; 2017-07-12)
PROC: 0W3P8ZZ Control Bleeding in Gastrointestinal Tract, Via Natural or Artificial Opening Endoscopic (ICD-10-PCS; principal; 2017-07-12 13:00)
PROC: 0W3P8ZZ Control Bleeding in Gastrointestinal Tract, Via Natural or Artificial Opening Endoscopic (ICD-10-PCS; 2017-07-13)
PROC: 0D9600Z Drainage of Stomach with Drainage Device, Open Approach (ICD-10-PCS; 2017-07-14)
PROC: 0DU907Z Supplement Duodenum with Autologous Tissue Substitute, Open Approach (ICD-10-PCS; 2017-07-14)
PROC: 0D1A0Z4 Bypass Jejunum to Cutaneous, Open Approach (ICD-10-PCS; 2017-07-14)
PROC: 02HV33Z Insertion of Infusion Device into Superior Vena Cava, Percutaneous Approach (ICD-10-PCS; 2017-07-14)
DX: K26.4 Chronic or unspecified duodenal ulcer with hemorrhage (principal); K65.9 Peritonitis, unspecified; D62 Acute posthemorrhagic anemia; J90 Pleural effusion, not elsewhere classified; K26.5 Chronic or unspecified duodenal ulcer with perforation; I10 Essential (primary) hypertension; K21.9 Gastro-esophageal reflux disease without esophagitis; E03.9 Hypothyroidism, unspecified; E78.5 Hyperlipidemia, unspecified; E66.9 Obesity, unspecified; M62.81 Muscle weakness (generalized); I80.8 Phlebitis and thrombophlebitis of other sites; I25.10 Atherosclerotic heart disease of native coronary artery without angina pectoris; R09.02 Hypoxemia; I95.89 Other hypotension; K25.4 Chronic or unspecified gastric ulcer with hemorrhage; Z95.5 Presence of coronary angioplasty implant and graft; Z68.28 Body mass index [BMI] 28.0-28.9, adult; Z79.82 Long term (current) use of aspirin; Z79.899 Other long term (current) drug therapy; Z87.891 Personal history of nicotine dependence; Z88.0 Allergy status to penicillin; Z87.11 Personal history of peptic ulcer disease
CPT/HCPCS: 00840; 36415; 36430; 71045; 74018; 74177; 74249; 80048; 80053; 82150; 82247; 82465; 82941; 83605; 83615; 83735; 83880; 84100; 84134; 84478; 84484; 84550; 85025; 85027; 85610; 85730; 86694; 86695; 86696; 86850; 86900; 86901; 86920; 86927; 88305; 93005; 93010; 97110; 97116; 97163; J0131; J0171; J1170; J1450; J2185; J2370; J2405; J2550; J2704; J3010; J3475; J7030; J7040; J7050; J7120; P9016; Q9967

== ENCOUNTER 2019-03-05 03:47 | Emergency (ER) | payer MEDICARE, OTHER ==
[~2019-03-05] VITALS: Ht 175.3 cm; Wt 92.5 kg
--- OUTSIDE RECORDS SUMMARY | ~2019-03-05 | XMS | Encounter Summary ---
Demographics + + + | Address | [address] [place] [address] | | | [place] [address] | + + + | Home Phone | | + + + | Preferred Language | Unknown | + + + | Marital Status | | + + + | Church Affiliation | 1077 | + + + | Race | Unknown | + + + | Ethnic Group | Unknown | + + + Author + + + | Author | [facility] | | | and [place] | + + + | Organization | [facility] | | | and [place] | + + + | Address | Unknown | + + + | Phone | Unavailable | + + + Support + + +---------+ + | Name | Relationship | Address | Phone | + + +---------+ + | Mary Levine | ECON | Unknown | | + + +---------+ + Care Team Providers + +------+ + | Care Air Plant Engineer Name | Role | Phone | + +------+ + | Stephane Thurman MD | PCP | | + +------+ + Encounter Details +--------+ + + + + | Date | Type | Department | Care Team | Description | +--------+ + + + + | 03/28/ | Imaging | [facility] | Provider, | | | 2019 | Exam | [facility] | MD [address] | | | | | IMAGING | [place] | | | | | [phone] | [place] [address] | | +--------+ + + + + Social History + + + +--------+ + | Tobacco Use | Types | Packs/Day | Years | Date | | | | | Used | | + + + +--------+ + | Former Smoker | Cigarettes | 1 | 55 | Quit: 05/16/2014 | + + + +--------+ + + +---+---+---+ | Smokeless Tobacco: | | | | | Never Used | | | | + +---+---+---+ + + +---------+ + | Alcohol Use | Drinks/Week | oz/Week | Comments | + + +---------+ + | Yes | | | less than weekly | + + +---------+ + + + + | Sex Assigned at | Date Recorded | | | | + + + | Not on file | | + + + + + + + | Job Start Date | Occupation | Industry | + + + + | Not on file | Not on file | Not on file | + + + + + + + + | Travel History | Travel Start | Travel End | + + + + + + | No recent travel history available. | + + documented as of this encounter Plan of Treatment Not on filedocumented as of this encounter Procedures + +--------+ + + + | Procedure Name | Priori | Date/Time | Associated Diagnosis | Comments | | | ty | | | | + +--------+ + + + | US RENAL COMPLETE | Routin | 06/23/2017 | | Results for this | | | e | 2:05 PM | | procedure are in the | | | | PDT | | results section. | + +--------+ + + + documented in this encounter Results US Renal Complete (06/23/2017 2:05 PM PDT) + + | Specimen | + + | | + + + + + | Narrative | Performed At | + + + | External films for comparison only | [facility] | | | | | No results will be in the chart. | | + + + + +---------+ + + | Performing | Address | City/State/Zipcode | Phone Number | | Organization | | | | + +---------+ + + | [facility] | | | | + +---------+ + + documented in this encounter Visit Diagnoses Not on filedocumented in this encounter"
--- OUTSIDE RECORDS SUMMARY | ~2019-03-05 | XMS | Encounter Summary ---
Demographics + + + | Address | [address] [place] [address] | | | [place] [address] | + + + | Home Phone | | + + + | Preferred Language | Unknown | + + + | Marital Status | | + + + | Tenriism Affiliation | 1077 | + + + | Race | Unknown | + + + | Ethnic Group | Unknown | + + + Author + + + | Author | [facility] | | | and [place] | + + + | Organization | [facility] | | | and [place] | [...] Team Providers + +------+ + | Care Camp Attendant Name | Role | Phone | + +------+ + PCP | Unavailable | + +------+ + Encounter Details +--------+ + + + + | Date | Type | Department | Care Team | Description | +--------+ + + + + | 08/03/ | Hospital | [facility] | [place] | | | 2008 | Encounter | MED CTR EMERGENCY | Annamarie Rhoades MD [address] | | | | | [address] | [facility] | | | | | [place] | [place] [address] | | | | | [address] | [phone] | | | | | [phone] | | | +--------+ + + + + Social History + +-------+ +--------+------+ | Tobacco Use | Types | Packs/Day | Years | Date | | | | | Used | | + +-------+ +--------+------+ | Never Assessed | | | | | + +-------+ +--------+------+ + + + | Sex Assigned at [...] Not on filedocumented as of this encounter Visit Diagnoses Not on filedocumented in this encounter"
--- OUTSIDE RECORDS SUMMARY | ~2019-03-05 | XMS | Encounter Summary ---
Demographics + + + | Address | [address] [place] [address] | | | [place] [address] | + + + | Home Phone | | + + + | Preferred Language | Unknown | + + + | Marital Status | | + + + | Oriental Orthodox Affiliation | 1077 | + + + | Race | Unknown | + + + | Ethnic Group | Unknown | + + + Author + + + | Author | [facility] | | | and [place] | + + + | Organization | [facility] | | | and [place] | [...] Team Providers + +------+ + | Care Dot Net Developer Name | Role | Phone | + +------+ + | Stephane Thurman MD | PCP | | + +------+ + Encounter Details +--------+---------+ + + + | Date | Type | Department | Care Team | Description | +--------+---------+ + + + | 08/16/ | Surgery | [facility] | Sam Toussaint | Right Shoulder | | 2015 | | MED CTR OR INTRA OP | [address] | Scope, Rotator Cuff | | | | [address] | [address] [place] | Repair, Subacromial | | | | [place] | [phone] | Decompression, | | | | [address] | [phone] | Distal Clavical | | | | [phone] | | Excision, Biceps | | | | | | Tenotomy | +--------+---------+ + + + Social History + + [...] + + documented as of this encounter Last Filed Vital Signs + + + + + | Vital Sign | Reading | Time Taken | Comments | + + + + + | Blood Pressure | 107/70 | 08/16/2014 1:30 PM | | | | | PDT | | + + + + + | Pulse | 65 | 08/16/2014 1:30 PM | | | | | PDT | | + + + + + | Temperature | 36.6 C (97.9 F) | 08/16/2014 11:36 AM | | | | | PDT | | + + + + + | Respiratory Rate | 16 | 08/16/2014 1:30 PM | | | | | PDT | | + + + + + | Oxygen Saturation | 92% | 08/16/2014 1:30 PM | | | | | PDT | | + + + + + | Inhaled Oxygen | - | - | | | Concentration | | | | + + + + + | Weight | 87.5 kg (192 lb 14.4 | 08/16/2014 8:22 AM | | | | oz) | PDT | | + + + + + | Height | 175.3 cm (5' 9") | 08/16/2014 8:22 AM | | | | | PDT | | + + + + + | Body Mass Index | 28.49 | 08/16/2014 8:22 AM | | | | | PDT | | + + + + + documented in this encounter Discharge Instructions Instructions Martha Chen - 08/16/2014[facility] Post-op Instructions - Shoulder Surgery The following instructions are meant to guide you following any shoulder surgery until your first post-operative visit 7-12 days later. For any problems or questions, please call our office at [phone], Wednesday through Wednesday, 9:00 am - 5:00 pm. 1) Sleep at least 45 degrees upright from the horizontal position (there is less pain and s welling that way) until comfortable laying flat. A recliner works best. 2) Ice the shoulder for at least the first 3-5 days. 3) Keep the dressing clean and dry for 3 days. You may remove the dressing and shower for t he first time, 3 days after surgery. Then cover your incisions with gauze or band-aids depen ding on incision size. Do not immerse your wound in a bath, pool, or hot tub. Do not put oin tments, peroxide or creams on your incisions 4) Begin pendulum exercises the next day after your surgery. Stand upright and let your arm dangle at your side. Gentle 6 to 12 inch circles (let gravity do the work) for 1-2 minutes, then put the arm back in the sling. Repeat 4-6 times daily. 5) Remain in your sling at all times, except when you are showering or doing your pendulum exercises. 6) Unless you enjoy shoulder surgery so much that you want to do it again, please do not re ach / push / pull / lift / or carry anything with your operative arm. Writing and typing (wi th arm in the sling) are about the only appropriate and safe uses of your arm. 7) Take your pain medications on a regular scheduled dose (every 4-6 hours) for the first 2 4 hours, starting the moment you get home. When the nerve block wears off, it is usually elsa y abrupt. You will be chasing the pain (bad strategy) if you are not already medicated. 8) After the first 24 hours, you can adjust your intake of pain medications on an as needed basis. Try not to completely cut off all medications at once. 9) All medicine refills must be handled during regular business hours. On-call doctors afte r hours and on week-ends don't know you and will not give you any refills. These instructions supersede any conflicting orders that you may have received from the [facility], advice from friends, family members, ecclesPrimordialtical leaders, grocery store clerks, shannan farnsworth, Alena, Dr. Quintero, Dr. Renee, sports heroes, etc. If unsure, please call our office. Thank you, Sam Toussaint D.O. [facility] [address] [place] [address] documented in this encounter Medications at Time of Discharge + + + +---------+ + + | Medication | Sig | Dispensed | Refills | Start | End Date | | | | | | Date | | + + + +---------+ + + | aspirin 81 mg | Take 81 mg by mouth | | 0 | | | | chewable tablet | Daily. | | | | | + + + +---------+ + + | clopidogrel | Take 75 mg by mouth | | 0 | | | | (PLAVIX) 75 mg | Daily. | | | | | | tablet | | | | | | + + + +---------+ + + | docusate-senna | Take 1 tablet by | | 0 | | | | (SENOKOT-S) 50-8.6 | mouth Daily. | | | | | | mg per tablet | | | | | | + + + +---------+ + + | levothyroxine | Take 125 mcg by | | 0 | | | | (SYNTHROID, | mouth every morning | | | | | | LEVOTHROID) 125 mcg | (before breakfast). | | | | | | tablet | | | | | | + + + +---------+ + + | metoprolol | Take 25 mg by mouth | | 0 | | | | succinate | Daily. | | | | | | (TOPROL-XL) 25 mg 24 | | | | | | | hr tablet | | | | | | + + + +---------+ + + | omeprazole | Take 40 mg by mouth | | 0 | | | | (PRILOSEC) 40 MG | every morning | | | | | | capsule | (before breakfast). | | | | | + + + +---------+ + + | rosuvastatin | Take 20 mg by mouth | | 0 | | | | (CRESTOR) 20 mg | nightly. | | | | | | tablet | | | | | | + + + +---------+ + + | | Take 1-2 tablets by | 30 | 0 | 08/17/19 | | | oxyCODONE-acetaminop | mouth every 6 hours | tablet | | 15 | 5 | | hen (PERCOCET) | as needed for Pain | | | | | | 10-325 mg per tablet | for up to 10 days. | | | | | + + + +---------+ + + documented as of this encounter Plan of Treatment Not on filedocumented as of this encounter Procedures + +--------+ + + + | Procedure Name | Priori | Date/Time | Associated Diagnosis | Comments | | | ty | | | | + +--------+ + + + | ARTHROSCOPY SHOULDER | | 08/16/2014 | Complete rupture | | | OPEN | | 10:00 AM | of rotator cuff, | | | | | PDT | right Other | | | | | | affections of | | | | | | shoulder region, not | | | | | | elsewhere | | | | | | classified | | | | | | Localized | | | | | | osteoarthrosis not | | | | | | specified whether | | | | | | primary or | | | | | | secondary, shoulder | | | | | | region | | + +--------+ + + + | POCT FINGERSTICK INR | STAT | 08/16/2014 | | Results for this | | | | 9:11 AM | | procedure are in the | | | | PDT | | results section. 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, shoulder region | + + documented in this encounter Administered Medications + +--------+ +--------+------+ + | Medication Order | MAR | Action | Dose | Rate | Site | | | Action | Date | | | | + +--------+ +--------+------+ + | EPINEPHrine 1 mg/mL injection | Given | 08/17/19 | 0.3 mg | | Other | | PRN, Starting [facility] 08/16/14 at | | 15 10:35 | | | (Comment | | 1035, Intra-op | | AM PDT | | | ) | + +--------+ +--------+------+ + +---+---+ | | | +---+---+ + +-------+ +--------+---+---+ | ropivacaine (NAROPIN) 5 mg/mL | Given | 08/17/19 | 20 mLs | | | | (0.5%) injection PRN, Starting | | 15 10:35 | | | | | [facility] 08/16/14 at 1035, Intra-op | | AM PDT | | | | + +-------+ +--------+---+---+ +---+---+ | | | +---+---+ documented in this encounter
--- OUTSIDE RECORDS SUMMARY | ~2019-03-05 | XMS | Encounter Summary ---
Demographics + + + | Address | [address] [place] [address] | | | [place] [address] | + + + | Home Phone | | + + + | Preferred Language | Unknown | + + + | Marital Status | | + + + | Christian Affiliation | 1077 | + + + | Race | Unknown | + + + | Ethnic Group | Unknown | + + + Author + + + | Author | [facility] | | | and [place] | + + + | Organization | [facility] | | | and [place] [...] Team Providers + +------+ + | Care Weir Fisher Name | Role | Phone | + +------+ + | Stephane Thurman MD | PCP | | + +------+ + Reason for Visit +--------+ + | Reason | Comments | +--------+ + | Other | bladder wall thickening | +--------+ + Evaluate & Treat (Routine) +--------+--------+ + + + + | Status | Reason | Specialty | Diagnoses / | Referred By | Referred To | | | | | Procedures | Contact | Contact | +--------+--------+ + + + + | Closed | | Urology | Diagnoses | Joshua, | [facility] | | | | | Bladder | Ross Godwin, | Urology [address] | | | | | wall | MD [address] | | | | | thickening | [address] | [place], | | | | | | [place], | [place] [address] | | | | | | [place] [address] | Phone: | | | | | | Phone: | [phone] | | | | | | [phone] | Fax: | | | | | | Fax: | [phone] | | | | | | [phone] | | +--------+--------+ + + + + Encounter Details +--------+---------+ + + + | Date | Type | Department | Care Team | Description | +--------+---------+ + + + | 03/22/ | Office | [facility] | Vic Pereira, | Bladder wall | | 2019 | Visit | [address] | MD [address] | thickening (Primary | | | | [place], [place] | [place], [place] | Dx); Prostate cancer | | | | [address] | [id number] | (HCC); Incomplete | | | | [phone] | | bladder emptying | +--------+---------+ + + + Social History [...] + + + | Blood Pressure | 132/82 | 03/22/2018 10:44 AM | | | | | PST | | + + + + + | Pulse | 68 | 03/22/2018 10:44 AM | | | | | PST | | + + + + + | Temperature | - | - | | + + + + + | Respiratory Rate | 16 | 03/22/2018 10:44 AM | | | | | PST | | + + + + + | Oxygen Saturation | - | - | | + + + + + | Inhaled Oxygen | - | - | | | Concentration | | | | + + + + + | Weight | 96.7 kg (213 lb 3 | 03/22/2018 10:44 AM | | | | oz) | PST | | + + + + + | Height | 175.3 cm (5' 9") | 03/22/2018 10:44 AM | | | | | PST | | + + + + + | Body Mass Index | 31.48 | 03/22/2018 10:44 AM | | | | | PST | | + + + + + documented in this encounter Patient Instructions Patient Instructions Vic Pereira MD - 03/22/2018 6:32 PM PSTFormatting of this note m ight be different from the original. Prostate Cancer: Interstitial Brachytherapy Radioactive 'seeds' are implanted throughout the prostate. Radiation therapy is one way to destroy cancer cells. Cancer cells for months after the therapy ends. Radiation can be given from outside or from inside the body. Radiation given from inside the prostate gland is called internal radiation. It s also known as interstiti al brachytherapy. How it works During this therapy, sources of radiation are put inside the prostate. Tinymetalseeds a re used. They are about the size of a grain of rice.The seeds can be left in place permane ntly. Or they may be removed later. The benefit of this kind of treatment is that the radiat ion is limited to a small area. It does not affect the whole body. Possible risks and complications All procedures have risks. Most risks from this procedure are related to organs that are ne ar the prostate and may be affected by the radiation. The risks include: Bowel problems Blood in the urine or semen for a short time after treatment Bleeding or inflammation of the bladder or rectum Burning feeling when urinating Erectile dysfunction Loss of bladder or bowel control (incontinence) Movement of seeds out of prostate Needing to urinate often Pain, bruising, or swelling where the needles were inserted Urinary obstruction Before treatment You may be given hormone therapy to shrink the prostate. An ultrasound, CT scan, or an MRI is then used to map the size and shape of the prostate. During treatment You are given anesthesia to keep you free from pain during the procedure. You will have one of these 2 treatments: Permanent seeds.Permanent seeds are known as low dose rate (LDR) brachytherapy. LDR ca n be done during an outpatient visit. This means you can go home the same day. The [employer] provider uses a needle to put tiny radioactive seeds into the prostate gland. The needle i s guided using images from a transrectal ultrasound. Temporary seeds.Temporary seeds release a single high dose of radiation (HDR). The [facility] providerputs small tubes (catheters) into the prostate gland. The catheters are ho oked up to a machine. The machine sends strong radioactive sources into the prostate for sev eral minutes at a time and then removes them. This is done a few times. The catheters are re moved after the last treatment.You may need to stay in the hospital for 1 to 2 days during this treatment.The permanent brachytherapy procedure takes about1 to 2 hours. After treatment Soon after treatment, you can resume your normal activities. Your healthcare team will help you to manage any side effects. With permanent seeds, you may need to restrict your contact with young children and women for a period of time. You may also need to take othe r precautions. Talk with your healthcare team. Date Last Reviewed: 08/06/[id number] [email or web address]. [address] [place] [address], [place] [address]. All righ ts reserved. This information is not intended as a substitute for professional medical care. Always follow your healthcare professional's instructions. documented in this encounter Progress Notes Vic Pereira MD - 03/22/2018 11:00 AM PSTFormatting of this note might be different fro m the original. HPI Jonathan Levine is a 77 y.o. male referred by Ross Lewis MD. Today, 03/22/2018, Jonathan presents for evaluation for a "routine checkup." However, Dr. Gayatri mcallister's notes suggest he is here for "bladder wall thickening." Jonathan was last seen in this office on approximately 01/13/2005. 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 PSA on 05/12/2001 was 8.5. Fo llow-up PSA on ~01/02/2005 was 0.86. He underwent ultrasound imaging in June 2017 reportedly for valuation of azotemia. Dr. Rowdy mckeon indicates that this ultrasound demonstrated "thickened bladder wall." Unfortunately, I did not have an ultrasound report or images while Jonathan was still here in the office. However, Dr. Lewis's note did include a CT report dated 07/14/2017 which demon strates that "the urinary bladder is unremarkable." Jonathan reports that he has done very well over the past 17 years. He states that his last P SA in 2018 was 0.5. Jonathan denies any difficulties with voiding. He states he has a good strong force of urinar y stream. He denies any dysuria or hematuria. He has nocturia 1-2. He has urinary frequ ency every 3-4 hours. He has occasional hesitancy. He denies any urinary incontinence. He does not wear a pad. Jonathan reports that this last 2017 he developed "4 stomach ulcers" which bled and "pe rforated" requiring laparotomy and repair with Dr. Mathis. He states that he had an extended hospital stay, and required 11 units of transfusion. Jonathan also reports that he has had multiple back surgeries, one of them requiring an anteri or approach. Jonathan reports numbness and tingling, feels tired and sluggish, has had change in stool size , rapid heart rate at times, high blood pressure, skin rash, pruritus, knee pain, chronic ba ck pain, shortness of breath, prior blood transfusion, otherwise, 10 point review of systems is negative. He does smoke 2 or 3 cigarettes per day. He is retired. He is . He has 2 children. He does use alcohol. Mother age 9 1 of "old age" and father age 58 of "kidney failure." There is a positive family histo ry of prostate cancer. I spent in excess of 30 minutes with Jonathan today, over 50% of this time spent in counseling regarding his apparent bladder wall thickening, potential causes and treatment options, and further diagnostic studies which can provide further diagnostic information. A note from Dr. Lewis is reviewed. Past Medical History: Diagnosis Date CAD (coronary artery disease) Heart disease Hypertension Hypothyroid Prostate CA (HCC) Reflux Past Surgical History: Procedure Laterality Date cardiac stents 96x3 stents cardiac stents CHOLECYSTECTOMY 2000 EGD AND COLONOSCOPY lt inquinal hernia x2 LUMBAR SPINE SURGERY x3, lami and fusions radioactive seeding 12/2001 Dr. Vic Pereira MD SHOULDER ARTHROSCOPY Right 08/16/2014 Procedure: Right Shoulder Scope, Rotator Cuff Repair, Subacromial Decompression, Distal Cl avical Excision, Biceps Tenotomy; Surgeon: Sam Toussaint DO; Location: [facility] MAIN OR TONSILLECTOMY AND ADENOIDECTOMY 49 Outpatient Encounter Prescriptions as of 03/22/2018 Medication Sig Dispense Refill aspirin 81 mg chewable tablet Take 81 mg by mouth Daily. clopidogrel (PLAVIX) 75 mg tablet Take 75 mg by mouth Daily. docusate-senna (SENOKOT-S) 50-8.6 mg per tablet Take 1 tablet by mouth Daily. levothyroxine (SYNTHROID, LEVOTHROID) 125 mcg tablet Take 125 mcg by mouth every mornin g (before breakfast). metoprolol succinate (TOPROL-XL) 25 mg 24 hr tablet Take 25 mg by mouth Daily. omeprazole (PRILOSEC) 40 MG capsule Take 40 mg by mouth every morning (before breakfast ). pantoprazole (PROTONIX) 40 mg tablet Take 2 tablets by mouth Daily. 0 potassium chloride (K-DUR, KLOR-CON) 10 mEq ER tablet (ED Homepack) potassium chloride ER 10 mEq tablet,extended release pravastatin (PRAVACHOL) 40 MG tablet Take 1 tablet by mouth Daily. 4 rosuvastatin (CRESTOR) 20 mg tablet Take 20 mg by mouth nightly. sucralfate (CARAFATE) 1 g tablet Take 2 tablets by mouth Daily. No facility-administered encounter medications on file as of 03/22/2018. Allergies Allergen Reactions Penicillins Rash Family History Problem Relation Age of Onset Heart disease Mother Kidney disease Father Social History Social History Marital status: Spouse name: N/A Number of children: N/A Years of education: N/A Social History Main Topics Smoking status: Former Smoker Packs/day: 1.00 Years: 55.00 Types: Cigarettes Quit date: 05/16/2014 Smokeless tobacco: Never Used Alcohol use Yes Comment: less than weekly Drug use: No Sexual activity: Not Asked Other Topics Concern None Social History Narrative None REVIEW OF SYSTEMS: [] Marked All Negative Constitutional Symptoms: [] Fever [] Chills [] Headache [] Change in appetite [] Change in weight [] Change in energy [] Other: Neurological: [] Tremors [] Dizzy Spells [x] Numbness/Tingling [] Seizures [] Other: Endocrine: [] Excessive thirst [] Too hot [] Too cold [x] Tired/Sluggish Gastrointestinal: [] Abdominal pain [] Nausea/Vomiting [] Indigestion/heartburn [x] Change in sto ol size [] Change in stool shape [] Change in stool color [] Pain with swallowin g [] Other: Cardiovascular: [] Chest Pain [x] Rapid heart rate [x] High blood pressure [] Other: Integumentary: [x] Skin rash [] Boils [x] Persistent itch [] Other: Musculoskeletal: [] Neck Pain [x] Joint swelling/pain [x] Back pain [] Bone pain [] Other: Respiratory: [] Wheezing [] Frequent cough [x] Shortness of breath [] Other: Hematologic/Lymphatic: [] Swollen glands [] Blood clotting issues [x] Prior blood transfusions []Other : Psychologic: Are you generally satisfied with your life? yes Do you feel severely depressed? no Have you considered suicide? no Habits: Do you smoke? yes (2 or 3 a day) [x] Yes [] No Patient to follow up with PCP regarding positives on review of systems. IPSS (International Prostate Symptom Score) 0=0 - Not at All 1=1 - Less than 1 in 5 times 2=2 - Less than half the time 3=3 - About half the time 4=4 - More than half the time 5=5 - Almost always IPSS (INTERNATIONAL PROSTATE SYMPTOM SCORE) 03/22/2018 1. Incomplete Emptying - How often have you had the sensation of not emptying your bladder? 1 2. Frequency - How often have you had to urinate less than every two hours? 2 3. Intermittency - How often have you found you stopped and started again several times whe n you urinated? 0 4. Urgency - How often have you found it difficult to postpone urination? 2 5. Weak Stream - How often have you had a weak urinary stream? 0 6. Straining - How often have you had to strain to start urination? 0 7. Nocturia - How many times did you typically get up at night to urinate? 2 TOTAL: 7 Quality of Life Due to Urinary Symptoms 0=0 - Delighted 1=1 - Pleased 2=2 - Mostly satisfied 3=3 - Mixed 4=4 - Mostly dissatisfied 5=5 - Unhappy 6=6 - Terrible QUALITY OF LIFE (URINARY) 03/22/2018 If you were to spend the rest of your life with your urinary condition just the way it is n ow, how would you feel about that? 1 PHYSICAL EXAM Vitals: BP 132/82 | Pulse 68 | Resp 16 | Ht 1.753 m (5' 9") | Wt 96.7 kg (213 lb 3 oz) | BMI 31.48 kg/m General: Awake, alert, in no acute distress. Speech is fluent. Appears to be stated age. Neck: Supple; No lymphadenopathy. No thyromegaly. Lungs: Normal respiratory effort, no wheezing, no stridor, no tachypnea. Chest: No rib or bony tenderness. Back: No CVA tenderness. No tenderness to fist percussion of the spine. Abdomen: Soft, nontender, nondistended, no hepatosplenomegaly. No masses. Multiple surgic al scars which appeared well healed. Suggestion of an incisional hernia near the umbilicus, nontender. No guarding; benign. Bladder nondistended. No flank tenderness. Extremities: Non-edematous. Hips and long bones nontender to fist percussion. Neuro: Awake, alert, oriented x3. Normal station and abnormal gait. He uses a cane for a ssistance in ambulation. Psychiatric: Mood and affect are normal. Normal judgment. Skin: Warm and dry, no erythematous rash. Groin: No mass. No lymphadenopathy. Genitalia: No penile lesion. Normal in appearance. Urethral meatus is normal in caliber. Penis is not circumcised. Scrotum is supple and nonerythematous. Scrotal contents are yasir ign. Rectal: No mass, normal sphincter tone. Prostate gland is flat, small, smooth, elastic, n ontender, nonnodular. There are no areas suspicious for malignancy. Prostate is not enlarg ed with gland volume estimated at 15 grams in size. Lateral sulci are intact. Seminal vesi cles are not palpably enlarged and are nontender. DIAGNOSTIC DATA: Bladder residual 03/22/2018 is 134 cc. (1.5 hours postvoid) AUA symptom score 03/22/2018 is 7-8. Lab Results Component Value Date COLORPOC Yellow 03/22/2018 CLARITYU Clear 03/22/2018 GLUCOSEPOC Negative 03/22/2018 BILIPOC Negative 03/22/2018 SG 1.015 03/22/2018 RBCUR Negative 03/22/2018 PHUAPOC 5.5 03/22/2018 PROTEINPOC 30 mg/dL (A) 03/22/2018 UROBILINOGEN 0.2 03/22/2018 NITRITEPOC Negative 03/22/2018 LEUKOCYTESUR Negative 03/22/2018 Real time ultrasound imaging of his bladder today performed by myself demonstrates only mil d bladder wall thickening, with no suspicious mucosal lesions. His bladder residual approxi mately 1.5 hours postvoid was 134 cc. IMPRESSION: 1. Bladder wall thickening. This is likely related to incomplete and/or poor filling of h is bladder during the ultrasound exam. CT imaging 07/14/2017 does not suggest any bladder wal l thickening. 2. Incomplete bladder emptying. His bladder residual 1.5 hours postvoid is 134 cc. This is not concerning. 3. Clinical stage T1c, N0, M0 adenocarcinoma of the prostate. There is no evidence of dis ease recurrence status post prostate brachytherapy completed 12/20/2001. Patient reports hi s PSA in 2018 was 0.5. He appears to be 17 years disease-free. 4. Bilateral renal cysts. No concerning findings reported on ultrasound imaging. 5. Chronic back pain, status post 3 back surgeries, June 2002, December 2009, April 5. 6. Bleeding duodenal ulcer, requiring "11 unit" blood transfusion and surgical repair with Dr. Mathis approximately 11/25/2017. 7. Arteriosclerotic cardiovascular disease. Coronary artery stents placed ~2015. 8. Chronic kidney disease. Stage and chronicity unknown. No hydronephrosis reported on u ltrasound imaging. PLAN: I told Jonathan that I will not infrequently see results of bladder wall "thickening" which ar e simply related to poor distention of the bladder. Obtain PSA results from PCP and/or [facility] and/or [facility] and/or [facility]. (Nayely hutchinson reports he had a PSA of 0.5 in 2018). (Unable to obtain any data from Dr. Thurman, as angela bond is retired) Please obtain last chemistry panel from [facility]. I will ask for the written ultrasound report (June 2017) from [facility] which reported bladder wall thickening. I will also ask for ultrasound images to be downloaded t o [employer] PACS, so I can view the images. Additionally, the CT scan dated 07/14/2017 needs to be downloaded so I can view these images as well. Given his incomplete bladder emptying, which is mild, I recommended to Jonathan that he return for a complex uroflow study, to be followed by a cystoscopic examination to evaluate his ur ethra and bladder outlet. Given his relative absence of symptoms, he declines. Further recommendations will depend upon the outcome of my review of these studies, but on today's ultrasound imaging of his bladder, I can see no concerning findings. Jonathan elects continued observation. He elects to follow-up here on a prn basis. Jonathan will continue his regular and customary care and followup with his primary care provi federico. I asked Jonathan to notify me immediately if he should experience any difficulties with voidin g or if he has any questions or concerns or any problems whatsoever. This document was generated in part using voice recognition software. Frequent wrong word or sound-alike substitutions may have occurred due to the inherent limitations of the voice recognition software. Although I have attempted to edit the content, I have not thoroughly proofread this note, and disability insurance claim examiner errors are likely to occur. CC: Alma Delia Flannery [facility] CC: Ross Lewis MD Addendum: After the patient left the office, ultrasound imaging report (still no images) dated 018 becomes available and is reported to demonstrate "no hydronephrosis, solid renal mass, s hadowing renal calculi." There are also "bilateral renal cysts including a left interpolar region anterior cyst measuring 0.9 cm with a thin septation." Additionally, the "urinary bl adder was only partially filled and not well evaluated. Demonstrated mild diffuse wall thic kening and trabeculation suggesting a history of underlying chronic bladder outlet obstructi on." documented in this en counter Plan of Treatment Not on filedocumented as of this encounter Procedures + +--------+ + + + | Procedure Name | Priori | Date/Time | Associated Diagnosis | Comments | | | ty | | | | + +--------+ + + + | POCT URINALYSIS, | Routin | 03/22/2018 | Bladder wall | Results for this | | AUTO WITH CONF | e | 10:59 AM | thickening | procedure are in the | | | | PST | | results section. | + +--------+ + + + | IMAGING REPORT - | | 03/22/2018 | | Results for this | | EXTERNAL SCAN | | 12:00 AM | | procedure are in the | | | | PST | | results section. | + +--------+ + + + documented in this encounter Results POCT Urinalysis Dipstick Automated (03/22/2018 10:59 AM PST) + + + + + + | Component | Value | Ref Range | Performed | Pathologist | | | | | At | Signature | + + + + + + | Color, UA, | Yellow | Yellow, Light | | | | POC | | Yellow | | | + + + + + + | Clarity, | Clear | | | | | UA, POC | | | | | + + + + + + | Glucose, | Negative | Negative | | | | UA, POC | | | | | + + + + + + | Bilirubin, | Negative | Negative | | | | UA, POC | | | | | + + + + + + | Ketones, | Negative | Negative, 100 | | | | UA, POC | | mg/dL | | | + + + + + + | Specific | 1.015 | 1.001 - 1.030 | | | | [place], | | | | | | UA, POC | | | | | + + + + + + | Blood, UA, | Negative | Negative | | | | POC | | | | | + + + + + + | pH, UA, POC | 5.5 | 5.0, 6.0, 7.0, | | | | | | 8.0, 5.5, 6.5, | | | | | | 7.5 | | | + + + + + + | Protein, | 30 mg/dL (A) | Negative | | | | UA, POC | | | | | + + + + + + | Urobilinoge | 0.2 | 0.2, Negative, | | | | n, UA, POC | | Normal, < 0.2 | | | | | | mg/dL, 1 mg/dL, | | | | | | < 0.2 E.U./dl, | | | | | | 1.0 E.U./dL, | | | | | | 0.2 mg/dL | | | + + + + + + | Nitrite, | Negative | Negative | | | | UA, POC | | | | | + + + + + + | Leukocyte | Negative | Negative | | | | Esterase, | | | | | | UA, POC | | | | | + + + + + + | Reducing | | | | | | Substances, | | | | | | Urine | | | | | + + + + + + | Ictotest | | Negative | | | + + + + + + | Remark | | | | | + + + + + + + + | Specimen | + + | Urine | + + IMAGING REPORT - EXTERNAL SCAN (03/22/2018 12:00 AM PST) + + + | Narrative | Performed At | + + + | Ordered by an | | | unspecified provider. | | + + + documented in this encounter Visit Diagnoses + + | Diagnosis | + + | Bladder wall thickening - Primary Other specified disorders of bladder | + + | Prostate cancer (HCC) Malignant neoplasm of prostate | + + | Incomplete bladder emptying | + + documented in this encounter
--- OUTSIDE RECORDS SUMMARY | ~2019-03-05 | XMS | Encounter Summary ---
Demographics + + + | Address | [address] [place] [address] | | | [place] [address] | + + + | Home Phone | | + + + | Preferred Language | Unknown | + + + | Marital Status | | + + + | Shinto Affiliation | 1077 | + + + | Race | Unknown | + + + | Ethnic Group | Unknown | + + + Author + + + | Author | [facility] | | | and Tonoana | + + + | Organization | [facility] | | | and Tonoana [...] Team Providers + +------+ + | Care Facilities Assistant Name | Role | Phone | + +------+ + PCP | Unavailable | + +------+ + Encounter Details +--------+ + + + + | Date | Type | Department | Care Team | Description | +--------+ + + + + | 01/03/ | Hospital | [facility] | Vic Pereira, | | | 2001 | Encounter | MED CTR XRAY [address] | MD [address] | | | | | [place] | [place] | | | | | [place] [address] | [address] | | | | | [phone] | | | +--------+ + + + [...]
--- OUTSIDE RECORDS SUMMARY | ~2019-03-05 | XMS | Encounter Summary ---
Demographics + + + | Address | [address] [place] [address] | | | [place] [address] | + + + | Home Phone | | + + + | Preferred Language | Unknown | + + + | Marital Status | | + + + | Anabaptism Affiliation | 1077 | + + + | Race | Unknown | + + + | Ethnic Group | Unknown | + + + Author + + + | Author | [facility] | | | and Tonoana | + + + | Organization | [facility] | | | and [...] Team Providers + +------+ + | Care Music Instructor Name | Role | Phone | + +------+ + PCP | Unavailable | + +------+ + Encounter Details +--------+ + + + + | Date | Type | Department | Care Team | Description | +--------+ + + + + | 08/03/ | Hospital | [facility] | [place] | | | 2008 | Encounter | MED CTR EMERGENCY | Annamraie Rhoades MD [address] | | | | | [address] | [address] [facility] | | | | | [place] | [place] [address] | | | | | [address] | [phone] | | | | | [phone] | | | +--------+ + + + [...]
--- OUTSIDE RECORDS SUMMARY | ~2019-03-05 | XMS | Encounter Summary ---
Demographics + + + | Address | [address] [place] [address] | | | [place] [address] | + + + | Home Phone | | + + + | Preferred Language | Unknown | + + + | Marital Status | | + + + | Amish Affiliation | 1077 | + + + | Race | Unknown | + + + | Ethnic Group | Unknown | + + + Author + + + | Author | [facility] | | | and [place]ono[place] | + + + | Organization | [facility] | | | and Tonoana | [...] Team Providers + +------+ + | Care Vp Product Marketing Name | Role | Phone | + +------+ + | Stephane Thurman MD | PCP | | + +------+ + Encounter Details +--------+ + + + + | Date | Type | Department | Care Team | Description | +--------+ + + + + | 07/08/ | Abstract | [facility] | Provider, | | | 2019 | | [address] | MD [address] | | | | | [place] | Renae Santoro. APRYL | | | | | [address] | [place] [address] | | | | | [phone] | | | +--------+ + + + [...] | + +--------+ + + + | EXTERNAL LAB: PSA | Routin | 11/23/2017 | | Results for this | | | e | 10:29 AM | | procedure are in the | | | | PDT | | results section. | + +--------+ + + + documented in this encounter Results External Lab: PSA (11/23/2017 10:29 AM PDT) + + + + + + | Component | Value | Ref Range | Performed | Pathologist | | | | | At | Signature | + + + + + + | PSA, | 0.6Comment: Drawn at | 0 - 4 | EXTERNAL | | | External | [facility] | | LAB | | + + + + + + + +---------+ + + | Performing | Address | City/State/Zipcode | Phone Number | | Organization | | | | + +---------+ + + | EXTERNAL LAB | | | | + +---------+ + + documented in this encounter Visit Diagnoses Not on filedocumented in this encounter"
--- OUTSIDE RECORDS SUMMARY | ~2019-03-05 | XMS | Encounter Summary ---
Demographics + + + | Address | [address] [place] [address] | | | [place] [address] | + + + | Home Phone | | + + + | Preferred Language | Unknown | + + + | Marital Status | | + + + | Scientologist Affiliation | 1077 | + + + | Race | Unknown | + + + | Ethnic Group | Unknown | + + + Author + + + | Author | [facility] | | | and [place] | + + + | Organization | [facility] | | | and Tonoana [...] Team Providers + +------+ + | Care Stopper Maker Helper Name | Role | Phone | + +------+ + PCP | Unavailable | + +------+ + Encounter Details +--------+ + + + + | Date | Type | Department | Care Team | Description | +--------+ + + + + | 12/21/ | Hospital | [facility] | Vic Pereira, | | | 2001 | Encounter | MED CTR MP INTRA OP | [address] [facility] | | | | | [address] | [place] | | | | | [place] | [address] | | | | | [address] | | | | | | [phone] | | | +--------+ + + + [...]
--- OUTSIDE RECORDS SUMMARY | ~2019-03-05 | XMS | Encounter Summary ---
Demographics + + + | Address | [address] [place] [address] | | | [place] [address] | + + + | Home Phone | | + + + | Preferred Language | Unknown | + + + | Marital Status | | + + + | Orthodoxy Affiliation | 1077 | + + + | Race | Unknown | + + + | Ethnic Group | Unknown | + + + Author + + + | Author | [facility] | | | and [place]ono[place] | + + + | Organization | [facility] | | | and Tonoana [...] Team Providers + +------+ + | Care Meal Temperer Name | Role | Phone | + +------+ + | Stephane Thurman MD | PCP | | + +------+ + Encounter Details +--------+ + + + + | Date | Type | Department | Care Team | Description | +--------+ + + + + | 08/16/ | Hospital | [facility] | Sam Toussaint | | | 2014 | Encounter | MED CTR OR INTRA OP | J, DO [address] | | | | | [address] | [address] [place] | | | | | [place] | [address] | | | | | [address] | [phone] | | | | | [phone] | | | +--------+ + + + [...] encounter Discharge Instructions Instructions Martha Chen - 08/16/2014[facility] Post-op Instructions - Shoulder Surgery The following instructions are meant to guide you following any shoulder surgery until your first post-operative visit 7-12 days later. For any problems or questions, please call our office at [phone], Wednesday through Wednesday, 9:00 am - 5:00 [...] that you may have received from the [facility], advice from friends, family members, ecclesFlickIMtical leaders, grocery store clerks, shannan farnsworth, Alena, Dr. Quintero, Dr. Renee, sports heroes, etc. If unsure, please call our office. Thank you, Sam Toussaint D.O. [facility] [address] [place] [address], [place] [phone] documented in this encounter Medications at Time [...]
--- OUTSIDE RECORDS SUMMARY | ~2019-03-05 | XMS | Encounter Summary ---
Demographics + + + | Address | [address] [place] [address] | | | [place] [address] | + + + | Home Phone | | + + + | Preferred Language | Unknown | + + + | Marital Status | | + + + | Orthodoxy Affiliation | 1077 | + + + | Race | Unknown | + + + | Ethnic Group | Unknown | + + + Author + + + | Author | [facility] | | | and [place]ono[place] | + + + | Organization | [facility] | | | and Tonoana [...] Providers + +------+ + | Care Supervisor Microwave Name | Role | Phone | + +------+ + PCP | Unavailable | + +------+ + Encounter Details +--------+ + + + + | Date | Type | Department | Care Team | Description | +--------+ + + + + | 11/06/ | Hospital | [facility] | Vic Pereira, | | | 1998 | Encounter | MED CTR GENERIC OP | [address] [facility] | | | | | CONV DEPT [address] | [place] | | | | | [place], | [address] | | | | | [place] [address] | | | | | | [phone] | | | +--------+ + + + [...]
--- OUTSIDE RECORDS SUMMARY | ~2019-03-05 | XMS | Encounter Summary ---
Demographics + + + | Address | [address] [place] [address] | | | [place] [address] | + + + | Home Phone | | + + + | Preferred Language | Unknown | + + + | Marital Status | | + + + | Muslim Affiliation | 1077 | + + + | Race | Unknown | + + + | Ethnic Group | Unknown | + + + Author + + + | Author | [facility] | | | and [place] | + + + | Organization | [facility] | | | and [...] Team Providers + +------+ + | Care Vocational Trainer Name | Role | Phone | + +------+ + PCP | Unavailable | + +------+ + Encounter Details +--------+ + + + + | Date | Type | Department | Care Team | Description | +--------+ + + + + | 12/21/ | Hospital | [facility] | | | | 2001 - | Encounter | [facility] | | | | | | CENTER [address] | | | | 03/03/ | | [place] | | | | 2001 | | [address] | | | | | | [phone] | | | +--------+ + + + [...]
--- OUTSIDE RECORDS SUMMARY | ~2019-03-05 | XMS | Encounter Summary ---
Demographics + + + | Address | [address] [place] [address] | | | [place] [address] | + + + | Home Phone | | + + + | Preferred Language | Unknown | + + + | Marital Status | | + + + | Scientologist Affiliation | 1077 | + + + | Race | Unknown | + + + | Ethnic Group | Unknown | + + + Author + + + | Author | [facility] | | | and [place] | + + + | Organization | [facility] | | | and Tono[place] [...] Team Providers + +------+ + | Care Pony Edger Name | Role | Phone | + [...] | MED CTR EXTERNAL | MD Tara [address] | | | | | IMAGING | Renae PINK | | | | | [phone] | [place] [address] | | +--------+ + + + + [...]
--- OUTSIDE RECORDS SUMMARY | ~2019-03-05 | XMS | Encounter Summary ---
Demographics + + + | Address | [address] [place] [address] | | | [place] [address] | + + + | Home Phone | | + + + | Preferred Language | Unknown | + + + | Marital Status | | + + + | Islam Affiliation | 1077 | + + + | Race | Unknown | + + + | Ethnic Group | Unknown | + + + Author + + + | Author | [facility] | | | and [place]ono[place] | + + + | Organization | [facility] | | | and [...] Team Providers + +------+ + | Care Edge Sawyer Name | Role | Phone | + +------+ + | Stephane Thurman MD | PCP | | + +------+ + Encounter Details +--------+ + + + + | Date | Type | Department | Care Team | Description | +--------+ + + + + | 03/24/ | Documentati | [facility] | Vic Pereira, | | | 2018 | on | [address] | MD [place] | | | | | [place] | [place] | | | | | [address] | [address] | | | | | [phone] | | | +--------+ + + + [...] + + documented as of this encounter Progress Notes Vic Pereira MD - 03/24/2018 6:52 [place] 07/14/2017 shows no apparent bladder wall thickening and no suspicious bladder lesions. Ultrasound 06/23/2017 shows mild bladder wall thickening, likely physiologic. documented in this en counter Plan of Treatment Not on filedocumented as of this encounter Visit Diagnoses Not on filedocumented in this encounter"
--- OUTSIDE RECORDS SUMMARY | ~2019-03-05 | XMS | Encounter Summary ---
Demographics + + + | Address | [address] [place] [address] | | | [place] [address] | + + + | Home Phone | | + + + | Preferred Language | Unknown | + + + | Marital Status | | + + + | Gnosticism Affiliation | 1077 | + + + | Race | Unknown | + + + | Ethnic Group | Unknown | + + + Author + + + | Author | [facility] | | | and [place] | + + + | Organization | [facility] [...] Team Providers + +------+ + | Care Receiver/Laborer Name | Role | Phone | + +------+ + PCP | Unavailable | + +------+ + Encounter Details +--------+ + + + + | Date | Type | Department | Care Team | Description | +--------+ + + + + | 10/20/ | Hospital | [facility] | | | | 2001 - | Encounter | MED CTR CANCER | | | | | | CENTER [address] | | | | 12/19/ | | [place] | | | | 2001 | | [address] | | | | | | [phone] | | | +--------+ + + + [...]
--- OUTSIDE RECORDS SUMMARY | ~2019-03-05 | XMS | Encounter Summary ---
Demographics + + + | Address | [address] [place] [address] | | | [place] [address] | + + + | Home Phone | | + + + | Preferred Language | Unknown | + + + | Marital Status | | + + + | Oriental Orthodox Affiliation | 1077 | + + + | Race | Unknown | + + + | Ethnic Group | Unknown | + + + Author + + + | Author | [facility] | | | and [place] | + + + | Organization | [facility] | | | and [...] Team Providers + +------+ + | Care Mechanic Foreman Name | Role | Phone | + +------+ + | Stephane Thurman MD | PCP | | + +------+ + Encounter Details +--------+ + + + + | Date | Type | Department | Care Team | Description | +--------+ + + + + | 03/24/ | Documentati | [facility] | iVc Pereira, | | | 2018 | on | [address] | MD [place] | | | | | [place] | [place] | | | | | [address] | [address] | | | | | [phone] | | | +--------+ + + + [...]
--- OUTSIDE RECORDS SUMMARY | ~2019-03-05 | XMS | Encounter Summary ---
Demographics + + + | Address | [address] [place] [address] | | | [place] [address] | + + + | Home Phone | | + + + | Preferred Language | Unknown | + + + | Marital Status | | + + + | Zoroastrian Affiliation | 1077 | + + + | Race | Unknown | + + + | Ethnic Group | Unknown | + + + Author + + + | Author | [facility] | | | and [place] | + + + | Organization | [facility] | | | and [place]ono[place] [...] Team Providers + +------+ + | Care Dumper Central Concrete Mixing Plant Name | Role | Phone | + +------+ + PCP | Unavailable | + +------+ + Encounter Details +--------+ + + + + | Date | Type | Department | Care Team | Description | +--------+ + + + + | 12/14/ | Hospital | [facility] | Vic Pereira, | | | 2001 | Encounter | MED CTR LABORATORY | [address] [place] [address] | | | | | [address] | [place] | | | | | [place] | [id number] | | | | | [address] | | | | | | [phone] | | | +--------+ + + + [...]
--- OUTSIDE RECORDS SUMMARY | ~2019-03-05 | XMS | Encounter Summary ---
Demographics + + + | Address | [address] [place] [address] | | | [place] [address] | + + + | Home Phone | | + + + | Preferred Language | Unknown | + + + | Marital Status | | + + + | Rastafari Affiliation | 1077 | + + + | Race | Unknown | + + + | Ethnic Group | Unknown | + + + Author + + + | Author | [facility] | | | and [place] | + + + | Organization | [facility] | | | and Tonoana [...] Team Providers + +------+ + | Care Early Education Teacher Name | Role | Phone | + +------+ + | Stephane Thuramn MD | PCP | | + +------+ [...] | | | | | [address] | [address] | | | | | [place] | [place] [address] | | | | | [address] | [phone] | | | | | [phone] | | | +--------+ + + + + Anesthesia Record + + + + + | Procedure Name | Responsible | Anesthesia Start | Anesthesia Stop Time | | | Anesthesiologist | Time | | + + + + + | Right Shoulder | Tor [place] Monique, | 08/16/14 1012 | 08/16/14 1139 [...] +----+---+ + + | | 1 | Shiro | | | | 0 | 43-degrees | | | | 2 | | | | | 6 | | | +----+---+ + + | | 1 | AN Bite | | | | 0 | Block | | | | 4 | | | | | 2 | | | +----+---+ + + | | 1 | Shiro off | | | | 1 | [...] ONLY] | 08/16/14; 1345 | [facility] [place] | Martha M Gustavo | | | [...] | | | | | PRN, Starting [facility] 08/16/14 at | | AM PDT [...]
--- OUTSIDE RECORDS SUMMARY | ~2019-03-05 | XMS | Encounter Summary ---
Demographics + + + | Address | [address] [place] [address] | | | [place] [address] | + + + | Home Phone | | + + + | Preferred Language | Unknown | + + + | Marital Status | | + + + | Faith Affiliation | 1077 | + + + | Race | Unknown | + + + | Ethnic Group | Unknown | + + + Author + + + | Author | [facility] | | | and [place] | + + + | Organization | [facility] | | | and [place] | [...] Team Providers + +------+ + | Care Oral And Maxillofacial Pathologist Name | Role | Phone | + +------+ + PCP | Unavailable | + +------+ + Encounter Details +--------+ + + + + | Date | Type | Department | Care Team | Description | +--------+ + + + + | 01/03/ | Hospital | [facility] | Vic Pereira, | | | 2001 | Encounter | MED CTR XRAY [address] | [address] | | | | | [address] [place] | [place] | | | | | [place] [address] | [address] | | | | | [phone] | | | +--------+ + + + [...]
--- OUTSIDE RECORDS SUMMARY | ~2019-03-05 | XMS | Encounter Summary ---
Demographics + + + | Address | [address] [place] [address] | | | [place] [address] | + + + | Home Phone | | + + + | Preferred Language | Unknown | + + + | Marital Status | | + + + | Restoration Affiliation | 1077 | + + + | Race | Unknown | + + + | Ethnic Group | Unknown | + + + Author + + + | Author | [facility] | | | and [place] | + + + | Organization | [facility] | | | and [place] | [...] Team Providers + +------+ + | Care Home Stager Name | Role | Phone | + +------+ + PCP | Unavailable | + +------+ + Encounter Details +--------+ + + + + | Date | Type | Department | Care Team | Description | +--------+ + + + + | 01/13/ | Hospital | [facility] | Vic Pereira, | | | 2004 | Encounter | MED CTR LABORATORY | [address] [place] [address] | | | | | [address] | [place] | | | | | [place] | [address] | | | | | [address] | | | | | | [phone] | | | +--------+ + + + [...]
--- OUTSIDE RECORDS SUMMARY | ~2019-03-05 | XMS | Encounter Summary ---
Demographics + + + | Address | [address] [place] [address] | | | [place] [address] | + + + | Home Phone | | + + + | Preferred Language | Unknown | + + + | Marital Status | | + + + | Christian Affiliation | 1077 | + + + | Race | Unknown | + + + | Ethnic Group | Unknown | + + + Author + + + | Author | [facility] | | | and [place] | + + + | Organization | [facility] | | | and [...] Team Providers + +------+ + | Care Enrollment Management Manager Name | Role | Phone | + +------+ + PCP | Unavailable | + +------+ + Encounter Details +--------+ + + + + | Date | Type | Department | Care Team | Description | +--------+ + + + + | 12/21/ | Hospital | [facility] | Vic Pereira, | | | 2001 | Encounter | MED CTR MP INTRA OP | [address] [facility] | | | | | [address] | [place] | | | | | [place] | [address] | | | | | [address] | | | | | | [phone] | | | +--------+ + + + [...]
--- OUTSIDE RECORDS SUMMARY | ~2019-03-05 | XMS | Encounter Summary ---
Demographics + + + | Address | [address] [place] [address] | | | [place] [address] | + + + | Home Phone | | + + + | Preferred Language | Unknown | + + + | Marital Status | | + + + | Taoism Affiliation | 1077 | + + + | Race | Unknown | + + + | Ethnic Group | Unknown | + + + Author + + + | Author | [facility] | | | and [place] | + + + | Organization | [facility] | | | and [...] Team Providers + +------+ + | Care Planner/Scheduler Name | Role | Phone | + +------+ + PCP | Unavailable | + +------+ + Encounter Details +--------+ + + + + | Date | Type | Department | Care Team | Description | +--------+ + + + + | 12/21/ | Hospital | [facility] | | | | 2001 - | Encounter | MED CTR CANCER | | | | | | CENTER [address] | | | | 03/03/ | | [place] | | | | 2001 | | [address] | | | | | | [phone] | | | +--------+ + + + [...]
--- OUTSIDE RECORDS SUMMARY | ~2019-03-05 | XMS | Encounter Summary ---
Demographics + + + | Address | [address] [place] [address] | | | [place] [address] | + + + | Home Phone | | + + + | Preferred Language | Unknown | + + + | Marital Status | | + + + | Zoroastrianism Affiliation | 1077 | + + + | Race | Unknown | + + + | Ethnic Group | Unknown | + + + Author + + + | Author | [facility] | | | and [place] | + + + | Organization | [facility] | | [...] Team Providers + +------+ + | Care Patrol Sergeant Name | Role | Phone | + [...] | MED CTR EXTERNAL | [address] | | | | | IMAGING | [place] | | | | | [phone] | [place] [address] | | +--------+ + + + + [...] | + +--------+ + + + | CT ABDOMEN PELVIS W | Routin | 07/14/2017 | | Results for this | | CONTRAST | e | 2:05 PM | | procedure are in the | | | | PDT | | results section. | + +--------+ + + + documented in this encounter Results CT Abdomen Pelvis w Contrast (07/14/2017 2:05 PM PDT) + + | Specimen [...]
--- OUTSIDE RECORDS SUMMARY | ~2019-03-05 | XMS | Encounter Summary ---
Demographics + + + | Address | [address] [place] [address] | | | [place] [address] | + + + | Home Phone | | + + + | Preferred Language | Unknown | + + + | Marital Status | | + + + | Synagogue Affiliation | 1077 | + + + | Race | Unknown | + + + | Ethnic Group | Unknown | + + + Author + + + | Author | [facility] | | | and [place] | + + + | Organization | [facility] | | | and [...] Team Providers + +------+ + | Care Strain Technician Name | Role | Phone | + [...] | MED CTR EXTERNAL | [address] | | | | | IMAGING | [place] | | | | | [phone] | [place] [address] | | +--------+ + + + + [...]
--- OUTSIDE RECORDS SUMMARY | ~2019-03-05 | XMS | Encounter Summary ---
Demographics + + + | Address | [address] [place] [address] | | | [place] [address] | + + + | Home Phone | | + + + | Preferred Language | Unknown | + + + | Marital Status | | + + + | Cheondoism Affiliation | 1077 | + + + | Race | Unknown | + + + | Ethnic Group | Unknown | + + + Author + + + | Author | [facility] | | | and [place] | + + + | Organization | [facility] | | | and Tonoana [...] Team Providers + +------+ + | Care Chronometer Adjuster Name | Role | Phone | + [...] [place]. [place] | | | | | [address] | [place] [address] | | | | | [phone] | | | +--------+ + + + [...]
--- OUTSIDE RECORDS SUMMARY | ~2019-03-05 | XMS | Encounter Summary ---
Demographics + + + | Address | [address] [place] [address] | | | [place] [address] | + + + | Home Phone | | + + + | Preferred Language | Unknown | + + + | Marital Status | | + + + | Alevism Affiliation | 1077 | + + + | Race | Unknown | + + + | Ethnic Group | Unknown | + + + Author + + + | Author | [facility] | | | and Tonoana | + + + | Organization | [facility] | | | and [...] Providers + +------+ + | Care Patrol Mother Name | Role | Phone | + +------+ + PCP | Unavailable | + +------+ + Encounter Details +--------+ + + + + | Date | Type | Department | Care Team | Description | +--------+ + + + + | 01/13/ | Hospital | [facility] | Vic Pereira, | | | 2004 | Encounter | MED CTR LABORATORY | [address] [place] [address] | | | | | [address] | [place] | | | | | [place] | [address] | | | | | [address] | | | | | | [phone] | | | +--------+ + + + [...]
--- OUTSIDE RECORDS SUMMARY | ~2019-03-05 | XMS | Encounter Summary ---
Demographics + + + | Address | [address] [place] [address] | | | [place] [address] | + + + | Home Phone | | + + + | Preferred Language | Unknown | + + + | Marital Status | | + + + | Uatsdin Affiliation | 1077 | + + + | Race | Unknown | + + + | Ethnic Group | Unknown | + + + Author + + + | Author | [facility] | | | and Tonoana | + + + | Organization | [facility] | | | and [...] Providers + +------+ + | Care Medical Billing Instructor Name | Role | Phone | [...] | | thickening | [address] | [place], | | | | | | [place], | [place] [address] | | | | | | [place] [address] | Phone: | | | | | | Phone: | [phone] | | | | | | [phone] | Fax: | | | | | | Fax: | [phone] | | | | | | [phone] | | +--------+--------+ + + + + [...] | thickening (Primary | | | | [place], [place] | [place], [place] | Dx); Prostate cancer | | | | [address] | [address] | (HCC); Incomplete | | | | [phone] | | bladder emptying | +--------+---------+ + [...] can go home the same day. The [facility] provider uses a needle to put tiny radioactive seeds into the prostate gland. The needle i s guided using images from a transrectal ultrasound. Temporary seeds.Temporary seeds release a single high dose of radiation (HDR). The [facility] providerputs small tubes (catheters) into the [...] with your healthcare team. Date Last Reviewed: 08/06/201619994679-3921 [employer] [place] [address], [place] [address]. All righ ts reserved. This information is [...] Biceps Tenotomy; Surgeon: Sam Toussaint DO; Location: [facility] MAIN OR TONSILLECTOMY AND ADENOIDECTOMY 49 Outpatient [...] PSA results from PCP and/or [facility] and/or [facility] and/or [facility]. (Nayely hutchinson reports he had a PSA of 0.5 in 2018). (Unable to obtain any data from Dr. Thurman, as angela bond is retired) Please obtain last chemistry panel from [facility]. I will ask for the written ultrasound report (June 2017) from [facility] which reported bladder wall thickening. I will [...] have not thoroughly proofread this note, and legal aid errors are likely to occur. CC: Alma Delia Flannery [facility] CC: Ross Lewis MD Addendum: After the [...] 1.001 - 1.030 | | | | Lyman, | | | | | | UA, [...]
--- OUTSIDE RECORDS SUMMARY | ~2019-03-05 | XMS | Encounter Summary ---
Demographics + + + | Address | [address] [place] [address] | | | [place] [address] | + + + | Home Phone [...] | Author | [facility] | | | and Tonoana | + + + | Organization | [facility] | [...] Team Providers + +------+ + | Care Assistant Branch Operations Manager Name | Role | Phone | [...] | | | | | [address] | [address] | | | | | [place] | [place] [address] | | | | | [address] | [phone] | | | | | [phone] | | | +--------+ + + + + Anesthesia Record + + + + + | Procedure Name | Responsible | Anesthesia Start | Anesthesia Stop Time | | | Anesthesiologist | Time | | + + + + + | Right Shoulder | Tor Graysonahmet Monique, | 08/16/14 1012 | 08/16/14 1139 [...] +----+---+ + + | | 1 | [place] | | | | 0 | 43-degrees | | | | 2 | | | | | 6 | | | +----+---+ + + | | 1 | AN Bite | | | | 0 | Block | | | | 4 | | | | | 2 | | | +----+---+ + + | | 1 | [place] off | | | | 1 | [...] ONLY] | 08/16/14; 1345 | Martha M Waldron | Martha M Gustavo | | | [...] | | | | | PRN, Starting [facility] 08/16/14 at | | AM PDT | [...]
--- OUTSIDE RECORDS SUMMARY | ~2019-03-05 | XMS | Encounter Summary ---
Demographics + + + | Address | [address] [place] [address] | | | [place] [address] | + + + | Home Phone | | + + + | Preferred Language | Unknown | + + + | Marital Status | | + + + | Temple Affiliation | 1077 | + + + | Race | Unknown | + + + | Ethnic Group | Unknown | + + + Author + + + | Author | [facility] | | | and Tonoana | + + + | Organization | [facility] | | | and Tonoana [...] Team Providers + +------+ + | Care University President Name | Role | Phone | + +------+ + PCP | Unavailable | + +------+ + Encounter Details +--------+ + + + + | Date | Type | Department | Care Team | Description | +--------+ + + + + | 10/20/ | Hospital | [facility] | | | | 2001 - | Encounter | MED CTR CANCER | | | | | | CENTER [address] | | | | 12/19/ | | [place] | | | | 2001 | | [address] | | | | | | [phone] | | | +--------+ + + + [...]
--- OUTSIDE RECORDS SUMMARY | ~2019-03-05 | XMS | Encounter Summary ---
Demographics + + + | Address | [address] [place] [address] | | | [place] [address] | + + + | Home Phone | | + + + | Preferred Language | Unknown | + + + | Marital Status | | + + + | Zoroastrianism Affiliation | 1077 | + + + | Race | Unknown | + + + | Ethnic Group | Unknown | + + + Author + + + | Author | [facility] | | | and Tonoana | + + + | Organization | [facility] | [...] Team Providers + +------+ + | Care Director Of Mobile Marketing Name | Role | Phone | + +------+ + PCP | Unavailable | + +------+ + Encounter Details +--------+ + + + + | Date | Type | Department | Care Team | Description | +--------+ + + + + | 11/06/ | Hospital | [facility] | Vic Pereira, | | | 1998 | Encounter | MED CTR GENERIC OP | [address] [facility] | | | | | CONV DEPT [address] | [place] | | | | | [address] [place], | [address] | | | | | [place] [address] | | | | | | [phone] | | | +--------+ + + + [...]
--- OUTSIDE RECORDS SUMMARY | ~2019-03-05 | XMS | Encounter Summary ---
Demographics + + + | Address | [address] [place] [address] | | | [place] [address] | + + + | Home Phone | | + + + | Preferred Language | Unknown | + + + | Marital Status | | + + + | Yazidi Affiliation | 1077 | + + + | Race | Unknown | + + + | Ethnic Group | Unknown | + + + Author + + + | Author | [facility] | | | and Tonoana | + + + | Organization | [facility] | | | and [...] Providers + +------+ + | Care Supervisor Telephone Clerks Name | Role | Phone | + +------+ + PCP | Unavailable | + +------+ + Encounter Details +--------+ + + + + | Date | Type | Department | Care Team | Description | +--------+ + + + + | 12/14/ | Hospital | [facility] | Vic Pereira, | | | 2001 | Encounter | MED CTR LABORATORY | [address] [place] [address] | | | | | [address] | [place] | | | | | [place] | [address] | | | | | [address] | | | | | | [phone] | | | +--------+ + + + [...]
--- OUTSIDE RECORDS SUMMARY | ~2019-03-05 | XMS | Encounter Summary ---
Demographics + + + | Address | [address] [place] [address] | | | [place] [address] | + + + | Home Phone | | + + + | Preferred Language | Unknown | + + + | Marital Status | | + + + | Yazdanism Affiliation | 1077 | + + + | Race | Unknown | + + + | Ethnic Group | Unknown | + + + Author + + + | Author | [facility] | | | and Tonoana | + + + | Organization | [facility] | | [...] Team Providers + +------+ + | Care Blocker And Cutter Contact Lens Name | Role | Phone | + [...] Cuff | | | | [address] | [address] [place] | Repair, Subacromial | | | | [place] | [address] | Decompression, | | | | [address] | [phone] | Distal Clavical | | | | [phone] | | Excision, Biceps | | | [...] encounter Discharge Instructions Instructions Martha Chen - 08/16/2014[facility] Post-op Instructions - Shoulder Surgery The following instructions are meant to guide you following any shoulder surgery until your first post-operative visit 7-12 days later. For any problems or questions, please call our office at [phone], Wednesday through Wednesday, 9:00 am - 5:00 [...] that you may have received from the [facility], advice from friends, family members, ecclesClean Harborstical leaders, grocery store clerks, shannan farnsworth, Alena, Dr. Quintero, Dr. Renee, sports heroes, etc. If unsure, please call our office. Thank you, Sam Toussaint D.O. [facility] [address] [place] [address] documented in this encounter Medications at Time [...] | | Other | | PRN, Starting [facility] 08/16/14 at | | 15 10:35 [...]
--- OUTSIDE RECORDS SUMMARY | ~2019-03-05 | XMS | Clinical Summary ---
Demographics + + + | Address | [address] [place] [address] | | | [place] [address] | + + + | Home Phone | | + + + | Preferred Language | Unknown | + + + | Marital Status | | + + + | Religion Affiliation | 1077 | + + + | Race | Unknown | + + + | Ethnic Group | Unknown | + + + Author + + + | Author | [facility] | | | and [place] | + + + | Organization | [facility] | | | and Tonoana | [...] Team Providers + +------+ + | Care Pattern Checker Name | Role | Phone | + [...] 3 x 38 Promus RCA | | ANIMAL CARE PROVIDER treated with three 4 mm Promus JERED using ADR. | |04/26/14: LAD JERED | | | |05/02/15: LAD restenosis treated with a 3 x 38 Promus | | RCA ANIMAL CARE PROVIDER treated with three 4 mm Promus JERED [...] + +------+--------+ +--------+--------+--------+ | Sut Jori Imp [id number] | | Right: | [employer] | | 04/27/ | AR-260 | | - [id number]: Qty: 1 | | | - ARTX | | 2017 | 0SBS-5 | | on 08/16/2014 by Norbert, | | Should | | | | / | | Sam Schultz DO at [facility] | | er | | | | /[id number] | | [facility] | | | | | | 74 | | CENTER | | | | | | | + +------+--------+ +--------+--------+--------+ | [place] Sut Bio Pushlok 3.5x19 | | Right: | [employer] | | 03/27/ | AR-192 | | - [id number]: Qty: 1 | | | - ARTX | | 2016 | 6B / | | on 08/16/2014 by Norbert, | | Should | | | | /[id number] | | Sam Schultz DO at [facility] | | er | | | | 07 | | [facility] | | | | | | [...] + +--------+ +--------+ +---------+--------+ | [employer] [place] | UNITED | [id number] | 11/07/19 | [phone] | | Indemn | | | OF | | 16-Pre | 0 | | ity | | | [place] | | sent | | | | | | MDCR | | | | | | | | SUPPL | | | | | | + +--------+ +--------+ +---------+--------+ | MEDICARE | MEDICA | [id number] | | [phone] | | Medica | [...] | | al/Fam | | 1941 | [phone] | [place] | | | mitul | | | 3 (Home) | [phone] | + +--------+ +--------+ + + Advance Directives + + + + + | Type | Date Recorded | Patient | Explanation | | | | Storage Consultant | | + + + + + | Power of | | | | | Launch Manager | | | | + + + [...]
--- OUTSIDE RECORDS SUMMARY | ~2019-03-05 | XMS | Clinical Summary ---
Demographics + + + | Address | [address] [place] [address] | | | [place] [address] | + + + | Home Phone | | + + + | Preferred Language | Unknown | + + + | Marital Status | | + + + | Worship Affiliation | 1077 | + + + | Race | Unknown | + + + | Ethnic Group | Unknown | + + + Author + + + | Author | [facility] | | | and [place] | + + + | Organization | [facility] | | | and [place] | + + + | Address | Unknown | + + + | Phone | Unavailable | + + + Support + + +---------+ + | Name | Relationship | Address | Phone | + + +---------+ + | Mary Leivne | ECON | Unknown | | + + +---------+ + Care Team Providers + +------+ + | Care Power Digger Operator Name | Role | Phone | [...] 3 x 38 Promus RCA | | RN ER treated with three 4 mm Promus JERED using ADR. | |04/26/14: LAD JERED | | | |05/02/15: LAD restenosis treated with a 3 x 38 Promus | | RCA RN ER treated with three 4 mm Promus JERED [...] + +------+--------+ +--------+--------+--------+ | Sut Jori Imp [id number] | | Right: | [employer] | | 04/27/ | AR-260 | | - [id number]: Qty: 1 | | | - ARTX | | 2017 | 0SBS-5 | | on 08/16/2014 by Norbert, | | Should | | | | / | | Sam Schultz DO at [facility] | | er | | | | /[id number] | | [facility] | | | | | | 74 | | CENTER | | | | | | | + +------+--------+ +--------+--------+--------+ | [place] Sut Bio Pushlok 3.5x19 | | Right: | [employer] | | 03/27/ | AR-192 | | - [id number]: Qty: 1 | | | - ARTX | | 2016 | 6B / | | on 08/16/2014 by Norbert, | | Should | | | | /[id number] | | Sam Schultz DO at [facility] | | er | | | | 07 | | [facility] | | | | | | [...] + +--------+ +--------+ +---------+--------+ | [employer] [place] | UNITED | [id number] | 11/07/19 | [phone] | | Indemn | | | OF | | 16-Pre | 0 | | ity | | | [place] | | sent | | | | | | MDCR | | | | | | | | SUPPL | | | | | | + +--------+ +--------+ +---------+--------+ | MEDICARE | MEDICA | [id number] | | [phone] | | Medica | [...] | | al/Fam | | 1941 | [phone] | [place] | | | mitul | | | 3 (Home) | [phone] | + +--------+ +--------+ + + Advance Directives + + + + + | Type | Date Recorded | Patient | Explanation | | | | Felled Seam Operator Chainstitch | | + + + + + | Power of | | | | | Flexographic Printing Press Operator | | | | + + + [...]
--- OUTSIDE RECORDS SUMMARY | ~2019-03-05 | XMS | Encounter Summary ---
Demographics + + + | Address | [address] [place] [address] | | | [place] [address] | + + + | Home Phone [...] | Author | [facility] | | | and [place]ono[place] | + + + | Organization | [facility] | | | and [...] Team Providers + +------+ + | Care Hide Salter Name | Role | Phone | + +------+ + | Stephane Thurman MD | PCP | | + +------+ + Encounter Details +--------+ + + + + | Date | Type | Department | Care Team | Description | +--------+ + + + + | 08/16/ | Hospital | [facility] | Sam Toussaint | | | 2014 | Encounter | MED CTR OR INTRA OP | J, DO [address] | | | | | [address] | [address] [place] | | | | | [place] | [address] | | | | | [address] | [phone] | | | | | [phone] | | | +--------+ + + + [...] encounter Discharge Instructions Instructions Martha Chen - 08/16/2014[facility] Post-op Instructions - Shoulder Surgery The following instructions are meant to guide you following any shoulder surgery until your first post-operative visit 7-12 days later. For any problems or questions, please call our office at [phone], Wednesday through Wednesday, 9:00 am - 5:00 [...] that you may have received from the [facility], advice from friends, family members, ecclesLearn It Systemstical leaders, grocery store clerks, shannan farnsworth, Alena, Dr. Quintero, Dr. Renee, sports heroes, etc. If unsure, please call our office. Thank you, Sam Toussaint D.O. [facility] [address] [place] [address], [place] [phone] documented in this encounter Medications at Time [...]
[~2019-03-05 03:47] MED LIST changes: +FUROSEMIDE20 MG PO; +KLOR-CON 1010 MEQ PO; +MAPAP500 M1 PO; +PANTOPRAZOLE SO40 MG PO; +SUCRALFATE1 GM PO
[2019-03-05] MEDS ORDERED: OMEPRAZOLE20 MG PO (03:58)
[2019-03-05] MEDS ORDERED: CEPHALEXIN500 MG PO (04:37)
== END 2019-03-05 04:44 | disposition home or self-care (01) ==
LOC: ED 03:47
DX: R04.0 Epistaxis (principal); I10 Essential (primary) hypertension; K21.9 Gastro-esophageal reflux disease without esophagitis; Z87.891 Personal history of nicotine dependence; Z88.0 Allergy status to penicillin; Z79.899 Other long term (current) drug therapy
CPT/HCPCS: 30903; 99283-25

== ENCOUNTER 2019-03-05 13:09 | Emergency (ER) | payer MEDICARE, OTHER ==
[~2019-03-05] VITALS: Ht 175.3 cm; Wt 92.5 kg
--- OUTSIDE RECORDS SUMMARY | ~2019-03-05 | XMS | Encounter Summary ---
Demographics + + + | Address | [address] [place] [address] | | | [place] [address] | + + + | Home Phone | | + + + | Preferred Language | Unknown | + + + | Marital Status | | + + + | Zoroastrianism Affiliation | 1077 | + + + | Race | Unknown | + + + | Ethnic Group | Unknown | + + + Author + + + | Author | [facility] | | | and [place] | + + + | Organization | [facility] | | | and [place] [...] Team Providers + +------+ + | Care Supervisor Aircraft Cleaning Name | Role | Phone | + +------+ + PCP | Unavailable | + +------+ + Encounter Details +--------+ + + + + | Date | Type | Department | Care Team | Description | +--------+ + + + + | 11/06/ | Hospital | [facility] | Vic Pereira, | | | 1996 | Encounter | MED [facility] GENER[facility] OP | [address] [facility] | | | | | CONV DEPT [address] | [place] | | | | | [place], | [address] | | | | | [place] [address] | | | | | | [phone] | | | +--------+ + + + [...]
--- OUTSIDE RECORDS SUMMARY | ~2019-03-05 | XMS | Encounter Summary ---
Demographics + + + | Address | [address] [place] [address] | | | [place] [address] | + + + | Home Phone | | + + + | Preferred Language | Unknown | + + + | Marital Status | | + + + | Church Affiliation | 1077 | + + + | Race | Unknown | + + + | Ethnic Group | Unknown | + + + Author + + + | Author | [facility] | | | and [place] | + + + | Organization | [facility] | | | and [place] [...] Team Providers + +------+ + | Care Rug Inspector Name | Role | Phone | + [...] | MED CTR EXTERNAL | MD [address] | | | | | IMAGING | [place]ae [place] | | | | | [phone] | [place] [address] | | +--------+ + + + + [...]
--- OUTSIDE RECORDS SUMMARY | ~2019-03-05 | XMS | Encounter Summary ---
Demographics + + + | Address | [address] [place] [address] | | | [place] [address] | + + + | Home Phone | | + + + | Preferred Language | Unknown | + + + | Marital Status | | + + + | Methodist Affiliation | 1077 | + + + | Race | Unknown | + + + | Ethnic Group | Unknown | + + + Author + + + | Author | [facility] | | | and Tonoana | + + + | Organization | [facility] | | | and [...] Team Providers + +------+ + | Care Cfo Controller Name | Role | Phone | + [...] | MED CTR EXTERNAL | MD Tara [address] | | | | | IMAGING | Renae PINK | | | | | [phone] | [place] [address] | | +--------+ + + + + [...]
--- OUTSIDE RECORDS SUMMARY | ~2019-03-05 | XMS | Encounter Summary ---
Demographics + + + | Address | [address] [place] [address] | | | [place] [address] | + + + | Home Phone | | + + + | Preferred Language | Unknown | + + + | Marital Status | | + + + | Advent Affiliation | 1077 | + + + | Race | Unknown | + + + | Ethnic Group | Unknown | + + + Author + + + | Author | [facility] | | | and Tonoana | + + + | Organization | [facility] | | | and [place] | + + + | Address | Unknown | + + + | Phone | Unavailable | + + + Support + + +---------+ + | Name | Relationship | Address | Phone | + + +---------+ + | Mary Levine | ECON | Unknown | | + + +---------+ + Care Team Providers + +------+ + | Care Corrugated Box Machine Operator Name | Role | Phone | + +------+ + PCP | Unavailable | + +------+ + Encounter Details +--------+ + + + + | Date | Type | Department | Care Team | Description | +--------+ + + + + | 12/21/ | Hospital | [facility] | | | | 2001 - | Encounter | MED CTR CANCER | | | | | | CENTER [address] | | | | 03/03/ | | [place] | | | | 2001 | | [address] | | | | | | [phone] | | | +--------+ + + + [...]
--- OUTSIDE RECORDS SUMMARY | ~2019-03-05 | XMS | Encounter Summary ---
Demographics + + + | Address | [address] [place] [address] | | | [place] [address] | + + + | Home Phone | | + + + | Preferred Language | Unknown | + + + | Marital Status | | + + + | Tenriism Affiliation | 1077 | + + + | Race | Unknown | + + + | Ethnic Group | Unknown | + + + Author + + + | Author | [facility] | | | and Tonoana | + + + | Organization | [facility] | | | and Tonoana [...] Team Providers + +------+ + | Care Starch Treating Assistant Name | Role | Phone | + [...] Cuff | | | | [address] | [address] [place] | Repair, Subacromial | | | | [place] | [address] | Decompression, | | | | [address] | [phone] | Distal Clavical | | | | [phone] | | Excision, Biceps | | | [...] encounter Discharge Instructions Instructions Martha Chen - 08/16/2014[facility] Post-op Instructions - Shoulder Surgery The following instructions are meant to guide you following any shoulder surgery until your first post-operative visit 7-12 days later. For any problems or questions, please call our office at [phone], Wednesday through Wednesday, 9:00 am - 5:00 [...] that you may have received from the [place] [facility], advice from friends, family members, ecclesMiTútical leaders, grocery store clerks, shannan farnsworth, Alena, Dr. Quintero, Dr. Renee, sports heroes, etc. If unsure, please call our office. Thank you, Sam Toussaint D.O. [facility] [address] [place] [address] documented in this encounter Medications at Time [...] | | Other | | PRN, Starting [facility] 08/16/14 at | | 15 10:35 | [...]
--- OUTSIDE RECORDS SUMMARY | ~2019-03-05 | XMS | Encounter Summary ---
Demographics + + + | Address | [address] [place] [address] | | | [place] [address] | + + + | Home Phone | | + + + | Preferred Language | Unknown | + + + | Marital Status | | + + + | Latter Day Affiliation | 1077 | + + + | Race | Unknown | + + + | Ethnic Group | Unknown | + + + Author + + + | Author | [facility] | | | and [place]ono[place] | + + + | Organization | [facility] | | | and Tonoana [...] Team Providers + +------+ + | Care Housing Coordinator Name | Role | Phone | + +------+ + PCP | Unavailable | + +------+ + Encounter Details +--------+ + + + + | Date | Type | Department | Care Team | Description | +--------+ + + + + | 10/20/ | Hospital | [facility] | | | | 2001 - | Encounter | MED CTR CANCER | | | | | | CENTER [address] | | | | 12/19/ | | [place] | | | | 2001 | | [address] | | | | | | [phone] | | | +--------+ + + + [...]
--- OUTSIDE RECORDS SUMMARY | ~2019-03-05 | XMS | Encounter Summary ---
Demographics + + + | Address | [address] [place] [address] | | | [place] [address] | + + + | Home Phone | | + + + | Preferred Language | Unknown | + + + | Marital Status | | + + + | Restorationism Affiliation | 1077 | + + + | Race | Unknown | + + + | Ethnic Group | Unknown | + + + Author + + + | Author | [facility] | | | and Tono[place] | + + + | Organization | [facility] | | | and Tonoana [...] Team Providers + +------+ + | Care Engraving Patternmaker Name | Role | Phone | + +------+ + | Stephane Thurman MD | PCP | | + +------+ + Encounter Details +--------+ + + + + | Date | Type | Department | Care Team | Description | +--------+ + + + + | 08/16/ | Hospital | [facility] | Sam Toussaint | | | 2014 | Encounter | MED CTR OR INTRA OP | J, DO [address] | | | | | [address] | [address] [place] | | | | | [place] | [address] | | | | | [address] | [phone] | | | | | [phone] | | | +--------+ + + + [...] encounter Discharge Instructions Instructions Martha Chen - [facility] Post-op Instructions - Shoulder Surgery The following instructions are meant to guide you following any shoulder surgery until your first post-operative visit 7-12 days later. For any problems or questions, please call our office at [phone], Wednesday through Wednesday, 9:00 am - 5:00 [...] that you may have received from the [facility], advice from friends, family members, ecclesTopcom Europetical leaders, grocery store clerks, shannan farnsworth, Alena, Dr. Quintero, Dr. Renee, sports heroes, etc. If unsure, please call our office. Thank you, Sam Toussaint D.O. [facility] [address] [place] [address], [place] [phone] documented in this encounter Medications at Time [...] | + +-------+ + + + | INR POC | 0.9 | 0.9 - 1.2 [...] + | Diagnosis | + + | Prostate CA (HCC) Malignant neoplasm of prostate | + + | Hypothyroid Unspecified hypothyroidism | + + documented in this encounter
--- OUTSIDE RECORDS SUMMARY | ~2019-03-05 | XMS | Encounter Summary ---
Demographics + + + | Address | [address] [place] [address] | | | [place] [address] | + + + | Home Phone | | + + + | Preferred Language | Unknown | + + + | Marital Status | | + + + | Church Affiliation | 1077 | + + + | Race | Unknown | + + + | Ethnic Group | Unknown | + + + Author + + + | Author | [facility] | | | and [place]ono[place] | + + + | Organization | [facility] | | | and Tonoana [...] Team Providers + +------+ + | Care Manager Molecular Name | Role | Phone | + +------+ + PCP | Unavailable | + +------+ + Encounter Details +--------+ + + + + | Date | Type | Department | Care Team | Description | +--------+ + + + + | 12/21/ | Hospital | [facility] | | | | 2001 - | Encounter | MED CTR CANCER | | | | | | CENTER [address] | | | | 03/03/ | | [place] | | | | 2001 | | [address] | | | | | | [phone] | | | +--------+ + + + [...]
--- OUTSIDE RECORDS SUMMARY | ~2019-03-05 | XMS | Encounter Summary ---
Demographics + + + | Address | [address] [place] [address] | | | [place] [address] | + + + | Home Phone | | + + + | Preferred Language | Unknown | + + + | Marital Status | | + + + | Mandaeism Affiliation | 1077 | + + + | Race | Unknown | + + + | Ethnic Group | Unknown | + + + Author + + + | Author | [facility] | | | and [place]ono[place] | + + + | Organization | [facility] | | | and [...] Team Providers + +------+ + | Care Licensed Home Inspector Name | Role | Phone | [...] | | | | | thickening | [address] | [place], | | | | | | [place], | [place] [address] | | | | | | [place] [address] | Phone: | | | | | | Phone: | [phone] | | | | | | [phone] | Fax: | | | | | | Fax: | [phone] | | | | | | [phone] | | +--------+--------+ + + + + [...] | thickening (Primary | | | | [place], [place] | [place], [place] | Dx); Prostate cancer | | | | [address] | [address] | (HCC); Incomplete | | | | [phone] | | bladder emptying | +--------+---------+ + [...] can go home the same day. The [employer] provider uses a needle to put tiny radioactive seeds into the prostate gland. The needle i s guided using images from a transrectal ultrasound. Temporary seeds.Temporary seeds release a single high dose of radiation (HDR). The [facility] providerputs small tubes (catheters) into the [...] with your healthcare team. Date Last Reviewed: 08/06/[id number] The [email or web address]. [address] [place] [address], [place] [address]. All righ ts reserved. This information is [...] have an ultrasound report or images while Jonathna was still here in the office. However, [...] Biceps Tenotomy; Surgeon: Sam Toussaint DO; Location: [facility] MAIN OR TONSILLECTOMY AND ADENOIDECTOMY 49 [...] PSA results from PCP and/or [facility] and/or [facility] and/or [facility]. (Nayely hutchinson reports he had a PSA of 0.5 in 2018). (Unable to obtain any data from Dr. Thurman, as angela bond is retired) Please obtain last chemistry panel from [facility]. I will ask for the written ultrasound report (June 2017) from [facility] which reported bladder wall thickening. I will [...] have not thoroughly proofread this note, and chef's assistant errors are likely to occur. CC: Alma Delia Flannery [facility] CC: Ross Lewis MD Addendum: After [...] 1.001 - 1.030 | | | | [place], | | | | | | UA, [...]
--- OUTSIDE RECORDS SUMMARY | ~2019-03-05 | XMS | Encounter Summary ---
Demographics + + + | Address | [address] [place] [address] | | | [place] [address] | + + + | Home Phone | | + + + | Preferred Language | Unknown | + + + | Marital Status | | + + + | Religion Affiliation | 1077 | + + + | Race | Unknown | + + + | Ethnic Group | Unknown | + + + Author + + + | Author | [facility] | | | and [place] | + + + | Organization | [facility] | | | and [...] Team Providers + +------+ + | Care Medical Staff Services Manager Name | Role | Phone | + +------+ + | Stephane Thurman MD | PCP | | + +------+ + Encounter Details +--------+ + + + + | Date | Type | Department | Care Team | Description | +--------+ + + + + | 08/16/ | Anesthesia | [facility] | Ilir Monique | | | 2015 | Event | [facility] | MD Jayy [address] | | | | | [address] | [address] | | | | | [place] | [place] [address] | | | | | [phone] | [phone] | | | | | [phone] | | | +--------+ + + + + Anesthesia Record + + + + + | Procedure Name | Responsible | Anesthesia Start | Anesthesia Stop Time | | | Anesthesiologist | Time | | + + + + + | Right Shoulder | Tor Schleyahmet Monique, | 08/16/14 1012 | 08/16/14 1139 | | Scope, Rotator Cuff | MD | | | | Repair, Subacromial | | | | | Decompression, | | | | | Distal Clavical | | | | | Excision, Biceps | | | | | Tenotomy (Right | | | | | Shoulder) | | | | + + + + + +----+---+ + + | Da | T | Event | Comment | | te | i | | | | | m | | | | | e | | | +----+---+ + + | 06 | 1 | | | | /1 | 0 | | | | 1/ | 0 | | | | 20 | 6 | | | | 15 | | | | +----+---+ + + | | 1 | An Checkout | Pre-use anesthesia machine/equipment checkout. | | | 0 | | | | | 0 | | | | | 7 | | | +----+---+ + + | | 1 | Beta | The patient took a beta-clive today. | | | 0 | Clive | | | | 0 | Declined | | | | 7 | | | +----+---+ + + | | 1 | Block Start | | | | 0 | | | | | 0 | | | | | 7 | | | +----+---+ + + | | 1 | Antibiotic | | | | 0 | Given | | | | 0 | | | | | 7 | | | +----+---+ + + | | 1 | AN Block | | | | 0 | End | | | | 1 | | | | | 2 | | | +----+---+ + + | | 1 | An Start | Reassessment prior to anesthesia induction/procedure. | | | 0 | | | | | 1 | | | | | 2 | | | +----+---+ + + | | 1 | An Start | | | | 0 | Data | | | | 1 | | | | | 6 | | | +----+---+ + + | | 1 | Preoxygenat | | | | 0 | ed | | | | 1 | | | | | 6 | | | +----+---+ + + | | 1 | An | | | | 0 | Induction | | | | 1 | | | | | 9 | | | +----+---+ + + | | 1 | An | | | | 0 | Intubation | | | | 2 | | | | | 1 | | | +----+---+ + + | | 1 | [place] | | | | 0 | 43-degrees | | | | 2 | | | | | 6 | | | +----+---+ + + | | 1 | AN Bite | | | | 0 | Block | | | | 4 | | | | | 2 | | | +----+---+ + + | | 1 | [place] off | | | | 1 | | | | | 3 | | | | | 0 | | | +----+---+ + + | | 1 | Extubated | | | | 1 | Awake | | | | 3 | | | | | 1 | | | +----+---+ + + | | 1 | an stop | | | | 1 | data | | | | 3 | | | | | 3 | | | +----+---+ + + | | 1 | An Stop | Patient handed off to recovery nurse. | | | 3 | | | | | 9 | | | +----+---+ + + +------+ | Meds | +------+ + + + | Name | Total | + + + | midazolam | 2 mg | + + + | fentaNYL | 100 mcg | + + + | lidocaine 2% (PF) | 50 mg | + + + | propofol | 100 mg | + + + | ePHEDrine | 10 mg | + + + | phenylephrine | 200 mcg | + + + | dexamethasone | 10 mg | + + + | ondansetron | 4 mg | + + + | ropivacaine 0.5% | 20 mL | + + + | ceFAZolin in dextrose (ANCEF) | 2 g | | IVPB 2 g | | + + + | lactated ringers (LR) infusion | 0 mL | + + + | lactated ringers (LR) infusion | 1,000 mL | + + + + + | Name | + + | N2O Flow Rate (L/Min) | + + | O2 Flow Rate (L/Min) | + + | Insp O2 | + + | Exp SEV | + + | Exp JERED | + + | Air Flow Rate (L/Min) | + + + + | No blood administrations on file. | + + +--------+ + + + | Type | Details | Placement | Removal | +--------+ + + + | [READ | 08/16/14; 0845; short term use; | 08/16/14 0845 by | 08/16/14 1345 by | | ONLY] | 08/16/14; 1345 | Martha M [place] | Martha M Gustavo | | | | | | | Periph | | | | | eral | | | | | IV - | | | | | Single | | | | | Lumen | | | | | | | | | +--------+ + + + | Airway | Placement Date: 08/16/14; | 08/16/14 1021 by Ilir | 08/16/14 1131 by Ilir | | | Placement Time: 1021; Mask | Jayy Monique MD | Jayy Monique MD | | | Ventilation: EZ; Attempts: 1; | | | | | Airway Type: laryngeal mask, | | | | | cuffed; Size: 4; Trauma: none; | | | | | Placement Check: verified by | | | | | capnography; Placed By: | | | | | Anesthesiologist; Removal Date: | | | | | 08/16/14; Removal Time: 1131 | | | +--------+ + + + | Read | 08/16/14; 1036; Right:; shoulder; | 08/16/14 1036 by | 05/31/18 1342 by | | only - | 05/31/18 (Completed/Removed by | Gennaro Puentes RN | User Epic | | | Utility); 1342 (Completed/Removed | | | | Incisi | by Utility) | | | | on | | | | +--------+ + + + documented in this encounter Social History + + + +--------+ + [...] | + +--------+ + + + | ANESTHESIA BLOCK | Routin | 08/16/2014 | | Results for this | | | e | 10:45 AM | | procedure are in the | | | | PDT | | results section. | + +--------+ + + + documented in this encounter Results ANESTHESIA BLOCK (08/16/2014 10:45 AM PDT) + + + | Narrative | Performed At | + + + | Ilir Monique MD 08/16/2014 10:45 Procedure Note | | | Anesthesia Block Procedure: Interscalene Block Right, | | | Approach: Anterior Technique used to guide the needle to the | | | proximity of the nerve, appropriate space, or fascial plane: | | | Ultrasound Guided. Single-Shot, Incremental Injection Incremental | | | Injection Volume: 20. Ultrasound image(s) saved in patient's | | | chart. Indication: Post-Op Pain Management. Block requested by | | | surgeon or patient. Pre-procedure Events: Patient Identified, | | | Pre-op Evaluation Completed, Airway Assessed, Risks and Benefits | | | Discussed, Procedure Consent Obtained and Timeout Performed. | | | Patient Positioning: Supine Prep: ChloraPrep used. Skin Local | | | Anesthetic: Lidocaine 1% Needle: 22 G Stimuplex (2 in and 4 in). | | | Ease: Easy Attempts: 1 Note: Negative Blood | | | Aspirated, Paresthesia and Test Dose. SpO2, NBP monitored during | | | procedure, recorded in anesthesia record. Under ultrasound guidance | | | the Stimuplex needle was advanced to the interscalene brachial | | | plexus. Local anesthetic as documented in the anesthesia record was | | | injected incrementally around the nerve roots with intermittent | | | negative aspiration and no paresthesias. Ultrasound image placed in | | | chart. Electronically signed by: Ilir Monique MD 08/16/2014 | | | 10:45 | | + + + documented in this encounter Visit Diagnoses Not on filedocumented in this encounter Administered Medications + +--------+ +------+------+------+ | Medication Order | MAR | Action | Dose | Rate | Site | | | Action | Date | | | | + +--------+ +------+------+------+ | ceFAZolin in dextrose (ANCEF) | Given | 08/17/19 | 2 g | | | | IVPB 2 g 2 g, Intravenous, | | 15 10:07 | | | | | Administer over 30 Minutes, Prior | | AM PDT | | | | | to Incision, Starting Lalita | | | | | | | 08/16/14 at 0807, For 1 dose, On | | | | | | | call to OR,for 1 dose,administer | | | | | | | within 1 hour of incision, Pre-op | | | | | | + +--------+ +------+------+------+ +---+---+ | | | +---+---+ + +-------+ +-------+---+---+ | dexamethasone (DECADRON) 10 | Given | 08/17/19 | 10 mg | | | | mg/mL injection Intravenous, | | 15 10:53 | | | | | PRN, Starting Lalita 08/16/14 at | | AM PDT | | | | | 1053, Anesthesia Intra-op | | | | | | + +-------+ +-------+---+---+ +---+---+ | | | +---+---+ + +-------+ +-------+---+---+ | ePHEDrine 50 mg/mL injection | Given | 08/17/19 | 10 mg | | | | PRN, Starting Lalita 08/16/14 at | | 15 10:43 | | | | | 1043, Anesthesia Intra-op | | AM PDT | | | | + +-------+ +-------+---+---+ +---+---+ | | | +---+---+ + +-------+ +--------+---+---+ | fentaNYL injection PRN, Pain, | Given | 08/17/19 | 50 mcg | | | | Starting Lalita 08/16/14 at 1007, | | 15 10:33 | | | | | Anesthesia Intra-op | | AM PDT | | | | + +-------+ +--------+---+---+ +-------+ +--------+---+---+ | Given | 08/17/19 | 25 mcg | | | | | 15 10:19 | | | | | | AM PDT | | | | +-------+ +--------+---+---+ | Given | 08/17/19 | 25 mcg | | | | | 15 10:07 | | | | | | AM PDT | | | | +-------+ +--------+---+---+ +---+---+ | | | +---+---+ + +---------+ +---+---+---+ | lactated ringers (LR) infusion | New Bag | 08/17/19 | | | | | at 10-100 mL/hr, Intravenous, | | 15 11:33 | | | | | CONTINUOUS, Starting Lalita 08/16/14 | | AM PDT | | | | | at 0830, TKO., Pre-op | | | | | | + +---------+ +---+---+---+ +---------+ +---+---+---+ | New Bag | 08/17/19 | | | | | | 15 10:07 | | | | | | AM PDT | | | | +---------+ +---+---+---+ +---+---+ | | | +---+---+ + +-------+ +-------+---+---+ | lidocaine (PF) 2% injection | Given | 08/17/19 | 50 mg | | | | PRN, Starting Lalita 08/16/14 at | | 15 10:19 | | | | | 1019, Anesthesia Intra-op | | AM PDT | | | | + +-------+ +-------+---+---+ +---+---+ | | | +---+---+ + +-------+ +------+---+---+ | midazolam (VERSED) 1 mg/mL | Given | 08/17/19 | 1 mg | | | | injection Intravenous, PRN, | | 15 10:19 | | | | | Anxiety, Starting Lalita 08/16/14 at | | AM PDT | | | | | 1007, Anesthesia Intra-op | | | | | | + +-------+ +------+---+---+ +-------+ +------+---+---+ | Given | 08/17/19 | 1 mg | | | | | 15 10:07 | | | | | | AM PDT | | | | +-------+ +------+---+---+ +---+---+ | | | +---+---+ + +-------+ +------+---+---+ | ondansetron (ZOFRAN) injection | Given | 08/17/19 | 4 mg | | | | PRN, Nausea, Vomiting, Starting | | 15 10:53 | | | | | Lalita 08/16/14 at 1053, Anesthesia | | AM PDT | | | | | Intra-op | | | | | | + +-------+ +------+---+---+ +---+---+ | | | +---+---+ + +-------+ +---------+---+---+ | phenylephrine (ASAD-SYNEPHRINE) | Given | 08/17/19 | 100 mcg | | | | 10 mg/mL injection Intravenous, | | 15 10:28 | | | | | PRN, Starting [facility] 08/16/14 at | | AM PDT | | | | | 1026, Anesthesia Intra-op | | | | | | + +-------+ +---------+---+---+ +-------+ +---------+---+---+ | Given | 08/17/19 | 100 mcg | | | | | 15 10:26 | | | | | | AM PDT | | | | +-------+ +---------+---+---+ +---+---+ | | | +---+---+ + +-------+ +--------+---+---+ | propofol (DIPRIVAN) injection | Given | 08/17/19 | 100 mg | | | | PRN, Starting Wed08/16/14 at | | 15 10:19 | | | | | 1019, Anesthesia Intra-op | | AM PDT | | | | + +-------+ +--------+---+---+ +---+---+ | | | +---+---+ + +-------+ +--------+---+---+ | ropivacaine (NAROPIN) 5 mg/mL | Given | 08/17/19 | 20 mLs | | | | (0.5%) injection PERINEURAL, | | 15 10:12 | | | | | PRN, Starting Lalita 08/16/14 at | | AM PDT | | | | | 1012, Anesthesia Intra-op | | | | | | + +-------+ +--------+---+---+ +---+---+ | | | +---+---+ documented in this encounter"
--- OUTSIDE RECORDS SUMMARY | ~2019-03-05 | XMS | Clinical Summary ---
Demographics + + + | Address | [address] [place] [address] | | | [place] [address] | + + + | Home Phone | | + + + | Preferred Language | Unknown | + + + | Marital Status | | + + + | Anglican Affiliation | 1077 | + + + | Race | Unknown | + + + | Ethnic Group | Unknown | + + + Author + + + | Author | [facility] | | | and [place] | + + + | Organization | [facility] | | | and [...] Team Providers + +------+ + | Care Vamp Cut Out Worker Name | Role | Phone | + +------+ + | Stephane Thurman MD | PCP | | + +------+ + Allergies + + + + + + | Active Allergy | Reactions | Severity | Noted | Comments | | | | | Date | | + + + + + + | Penicillins | Rash | Low | 08/16/19 | | | | | | 15 | | + + + + + + Medications + + + +---------+------+------+-------+ | Medication | Sig | Dispensed | Refills | Star | End | Statu | | | | | | t | Date | s | | | | | | Date | | | + + + +---------+------+------+-------+ | clopidogrel | Take 75 mg by mouth | | 0 | | | Activ | | (PLAVIX) 75 mg | Daily. | | | | | e | | tablet | | | | | | | + + + +---------+------+------+-------+ | omeprazole | Take 40 mg by mouth | | 0 | | | Activ | | (PRILOSEC) 40 MG | every morning | | | | | e | | capsule | (before breakfast). | | | | | | + + + +---------+------+------+-------+ | metoprolol | Take 25 mg by mouth | | 0 | | | Activ | | succinate | Daily. | | | | | e | | (TOPROL-XL) 25 mg 24 | | | | | | | | hr tablet | | | | | | | + + + +---------+------+------+-------+ | levothyroxine | Take 125 mcg by | | 0 | | | Activ | | (SYNTHROID, | mouth every morning | | | | | e | | LEVOTHROID) 125 mcg | (before breakfast). | | | | | | | tablet | | | | | | | + + + +---------+------+------+-------+ | rosuvastatin | Take 20 mg by mouth | | 0 | | | Activ | | (CRESTOR) 20 mg | nightly. | | | | | e | | tablet | | | | | | | + + + +---------+------+------+-------+ | aspirin 81 mg | Take 81 mg by mouth | | 0 | | | Activ | | chewable tablet | Daily. | | | | | e | + + + +---------+------+------+-------+ | docusate-senna | Take 1 tablet by | | 0 | | | Activ | | (SENOKOT-S) 50-8.6 | mouth Daily. | | | | | e | | mg per tablet | | | | | | | + + + +---------+------+------+-------+ | sucralfate | Take 2 tablets by | | 0 | 01/1 | | Activ | | (CARAFATE) 1 g | mouth Daily. | | | 0/20 | | e | | tablet | | | | 19 | | | + + + +---------+------+------+-------+ | pravastatin | Take 1 tablet by | | 4 | 12/0 | | Activ | | (PRAVACHOL) 40 MG | mouth Daily. | | | 7/20 | | e | | tablet | | | | 18 | | | + + + +---------+------+------+-------+ | pantoprazole | Take 2 tablets by | | 0 | 10/2 | | Activ | | (PROTONIX) 40 mg | mouth Daily. | | | 7/20 | | e | | tablet | | | | 18 | | | + + + +---------+------+------+-------+ | potassium chloride | potassium chloride | | 0 | | | Activ | | (MAXINE LINARES) | ER 10 mEq | | | | | e | | 10 mEq ER tablet (ED | tablet,extended | | | | | | | Homepack) | release | | | | | | + + + +---------+------+------+-------+ Active Problems + + + | Problem | Noted Date | + + + | Duodenal perforation | 09/06/2017 | + + + | Duodenal ulcer with hemorrhage | 08/02/2017 | + + + | History of colonic polyps | 01/15/2016 | + + + | Prostate CA | 08/16/2014 | + + + | Hypothyroid | 08/16/2014 | + + + | Abnormal nuclear cardiac imaging test | 04/05/2014 | + + + | Coronary atherosclerosis | 03/20/2014 | + + + + + | Overview: Overview: JERED of RCA in 1995, now with exertional | | chest discomfort. ECG is unchanged per Dr. Thurman. Overview: | | David Gee BMS x 3 RCA in 1995, now with exertional chest | | discomfort. Subsequently found to be occluded 1999. 04/26/14: LAD | | DES05/02/15: LAD restenosis treated with a 3 x 38 Promus RCA | | REWORKER treated with three 4 mm Promus JERED using ADR. | |04/26/14: LAD JERED | | | |05/02/15: LAD restenosis treated with a 3 x 38 Promus | | RCA REWORKER treated with three 4 mm Promus JERED using ADR. | + + Immunizations + + + + | Name | Administration Dates | Next Due | + + + + | INFLUENZA 67 Y OR >, | 11/09/2017 | | | TRIVALENT HIGH-DOSE | | | + + + + | INFLUENZA PF 67 Y OR | 12/15/2016 | | | >,TRIVALENT (FLUAD) | | | + + + + | PNEUMOCOCCAL | 12/15/2016 | | | POLYSACCHARIDE | | | | 23-VALENT (PPSV23) | | | + + + + | ZOSTER NON-LIVE | 12/28/2017, 12/28/2017 | | | (SHINGRIX) | | | + + + + Family History + + +------+ + | Medical History | Relation | Name | Comments | + + +------+ + | Kidney disease | Father | | | + + +------+ + | Heart disease | Mother | | | + + +------+ + + +------+ + + | Relation | Name | Status | Comments | + +------+ + + | Father | | | | + +------+ + + | Mother | | | | + +------+ + + Social History + + + [...] recent travel history available. | + + Last Filed Vital Signs + + + [...] | | + + + + + Plan of Treatment + + + + + | Health Maintenance | Due Date | Last Done | Comments | + + + + + | Vaccine: | | | | | Dtap/Tdap/Td (1 - | 4 | | | | Tdap) | | | | + + + + + | Lung Cancer | | | | | Screening | 8 | | | + + + + + | Vaccine: | | 12/15/2016 | | | Pneumococcal 65+ (2 | 8 | | | | of 2 - PCV13) | | | | + + + + + | Adult Annual | | | | | Wellness Visit | 8 | | | + + + + + | Vaccine: Zoster (2 | | 12/28/2017 | | | of 2) | 8 | | | + + + + + | Vaccine: Influenza | | 11/09/2017, 12/15/2016 | | | (#1) | 9 | | | + + + + + Implants + +------+--------+ +--------+--------+--------+ | Implanted | Type | Area | Manufacture | Device | Shelf | Model | | | | | r | | Expira | / | | | | | | Identi | tion | Serial | | | | | | fier | Date | / Lot | + +------+--------+ +--------+--------+--------+ | Sut Jori Imp [id number] | | Right: | [employer] | | 04/27/ | AR-260 | | - [id number]: Qty: 1 | | | - ARTX | | 2017 | [id number] | | on 08/16/2014 by Norbert, | | Should | | | | / | | Sam Schultz DO at [facility] | | er | | | | /[id number] | | [facility] | | | | | | 74 | | CENTER | | | | | | | + +------+--------+ +--------+--------+--------+ | [place] Sut Bio Pushlok 3.5x19 | | Right: | [employer] | | 03/27/ | AR-192 | | - [id number]: Qty: 1 | | | - ARTX | | 2016 | [id number] / | | on 08/16/2014 by Norbert, | | Should | | | | /[id number] | | Sam Schultz DO at [facility] | | er | | | | 07 | | [facility] | | | | | | | | CENTER | | | | | | | + +------+--------+ +--------+--------+--------+ Results Not on filefrom Last 3 Months Insurance + +--------+ +--------+ +---------+--------+ | Payer | Benefi | Subscriber | Effect | Phone | Address | Type | | | t Plan | ID | helena | | | | | | / | | Dates | | | | | | Group | | | | | | + +--------+ +--------+ +---------+--------+ | [employer] [place] | UNITED | [id number] | 11/07/19 | [phone] | | Indemn | | | OF | | 16-Pre | 0 | | ity | | | [place] | | sent | | | | | | MDCR | | | | | | | | SUPPL | | | | | | + +--------+ +--------+ +---------+--------+ | MEDICARE | MEDICA | [id number] | | [phone] | | Medica | | | RE | | 008-Pr | 5 | | re | | | PART A | | esent | | | | | | AND B | | | | | | + +--------+ +--------+ +---------+--------+ + +--------+ +--------+ + + | Guarantor Name | Accoun | Relation to | Date | Phone | Billing Address | | | t Type | Patient | of | | | | | | | | | | + +--------+ +--------+ + + | Jonathan Levine | Person | Self | [birth year] | [address] | | | al/Fam | | 1941 | [phone] | [place] | | | mitul | | | 3 (Home) | [phone] | + +--------+ +--------+ + + Advance Directives + + + + + | Type | Date Recorded | Patient | Explanation | | | | Mental Health Social Worker | | + + + + + | Power of | | | | | Cafe Helper | | | | + + + + + | Advance | 08/16/2014 7:54 | | | | Directive | AM | | | + + + + + + + + + + | Code Status | Date | Date | Comments | | | Activated | Inactivated | | + + + + + | Full Code | 08/16/2014 | 08/16/2014 | | | | 11:43 AM | 4:08 PM | | + + + + +
--- OUTSIDE RECORDS SUMMARY | ~2019-03-05 | XMS | Encounter Summary ---
Demographics + + + | Address | [address] [place] [address] | | | [place] [address] | + + + | Home Phone | | + + + | Preferred Language | Unknown | + + + | Marital Status | | + + + | Adventist Affiliation | 1077 | + + + | Race | Unknown | + + + | Ethnic Group | Unknown | + + + Author + + + | Author | [facility] | | | and [place] | + + + | Organization | [facility] | | | and [...] Providers + +------+ + | Care Manager Ccu Name | Role | Phone | + [...] [place]. [place]YL | | | | | [address] | [place] [address] | | | | | [phone] | | | +--------+ + + + [...]
--- OUTSIDE RECORDS SUMMARY | ~2019-03-05 | XMS | Encounter Summary ---
Demographics + + + | Address | [address] [place] [address] | | | [place] [address] | + + + | Home Phone | | + + + | Preferred Language | Unknown | + + + | Marital Status | | + + + | Mosque Affiliation | 1077 | + + + | Race | Unknown | + + + | Ethnic Group | Unknown | + + + Author + + + | Author | [facility] | | | and [place] | + + + | Organization | [facility] | | | and [...] Team Providers + +------+ + | Care Toll Line Inspector Name | Role | Phone | [...] [place] | | | | | [address] | [address] | | | | | [phone] | | | +--------+ + + + [...] as of this encounter Progress Notes Vic Peerira MD - 03/24/2018 6:52 [facility] 07/14/2017 shows no apparent bladder wall thickening and no suspicious bladder lesions. Ultrasound 06/23/2017 shows mild bladder wall thickening, likely physiologic. documented in this en counter Plan of Treatment Not on filedocumented as of this encounter Visit Diagnoses Not on filedocumented in this encounter"
--- OUTSIDE RECORDS SUMMARY | ~2019-03-05 | XMS | Encounter Summary ---
Demographics + + + | Address | [address] [place] [address] | | | [place] [address] | + + + | Home Phone | | + + + | Preferred Language | Unknown | + + + | Marital Status | | + + + | Anabaptist Affiliation | 1077 | + + + | Race | Unknown | + + + | Ethnic Group | Unknown | + + + Author + + + | Author | [facility] | | | and [place] | + + + | Organization | [facility] | | | and [...] Team Providers + +------+ + | Care Banquet Pilot Name | Role | Phone | + +------+ + PCP | Unavailable | + +------+ + Encounter Details +--------+ + + + + | Date | Type | Department | Care Team | Description | +--------+ + + + + | 12/21/ | Hospital | [facility] | Vic Pereira, | | | 2001 | Encounter | MED CTR MP INTRA OP | [address] [facility] | | | | | [address] | [place] | | | | | [place] | [address] | | | | | [address] | | | | | | [phone] | | | +--------+ + + + [...]
--- OUTSIDE RECORDS SUMMARY | ~2019-03-05 | XMS | Encounter Summary ---
Demographics + + + | Address | [address] [place] [address] | | | [place] [address] | + + + | Home Phone | | + + + | Preferred Language | Unknown | + + + | Marital Status | | + + + | Episcopalian Affiliation | 1077 | + + + | Race | Unknown | + + + | Ethnic Group | Unknown | + + + Author + + + | Author | [facility] | | | and [place] | + + + | Organization | [facility] | | | and [place] [...] Team Providers + +------+ + | Care Cloud Automation Tester Name | Role | Phone | + +------+ + PCP | Unavailable | + +------+ + Encounter Details +--------+ + + + + | Date | Type | Department | Care Team | Description | +--------+ + + + + | 12/14/ | Hospital | [facility] | Vic Pereira, | | | 2001 | Encounter | MED CTR LABORATORY | [address] [place] [address] | | | | | [address] | [place] | | | | | [place] | [address] | | | | | [address] | | | | | | [phone] | | | +--------+ + + + [...]
--- OUTSIDE RECORDS SUMMARY | ~2019-03-05 | XMS | Encounter Summary ---
Demographics + + + | Address | [address] [place] [address] | | | [place] [address] | + + + | Home Phone [...] | Author | [facility] | | | and [place] | + + + | Organization | [facility] | | | and Tonoana [...] Team Providers + +------+ + | Care Steam Hoist Operator Name | Role | Phone | [...] | MED CTR EXTERNAL | [address] | | | | | IMAGING | [place] | | | | | [phone] | [place] [address] | | +--------+ + + + + [...]
--- OUTSIDE RECORDS SUMMARY | ~2019-03-05 | XMS | Encounter Summary ---
Demographics + + + | Address | [address] [place] [address] | | | [place] [address] | + + + | Home Phone | | + + + | Preferred Language | Unknown | + + + | Marital Status | | + + + | Christian Affiliation | 1077 | + + + | Race | Unknown | + + + | Ethnic Group | Unknown | + + + Author + + + | Author | [facility] | | | and [place] | + + + | Organization | [facility] | | | and Tonoana [...] Team Providers + +------+ + | Care Financial Foundations Representative Name | Role | Phone | + +------+ + PCP | Unavailable | + +------+ + Encounter Details +--------+ + + + + | Date | Type | Department | Care Team | Description | +--------+ + + + + | 10/20/ | Hospital | [facility] | | | | 2001 - | Encounter | MED CTR CANCER | | | | | | CENTER [address] | | | | 12/19/ | | [place] | | | | 2001 | | [address] | | | | | | [phone] | | | +--------+ + + + [...]
--- OUTSIDE RECORDS SUMMARY | ~2019-03-05 | XMS | Encounter Summary ---
Demographics + + + | Address | [address] [place] [address] | | | [place] [address] | + + + | Home Phone | | + + + | Preferred Language | Unknown | + + + | Marital Status | | + + + | Baptist Affiliation | 1077 | + + + | Race | Unknown | + + + | Ethnic Group | Unknown | + + + Author + + + | Author | [facility] | | | and Tonoana | + + + | Organization | [facility] | | | and Tonoana [...] Team Providers + +------+ + | Care Communications Field Technician Name | Role | Phone | [...] Santoro. APRYL | | | | | [address] | [place] [address] | | | | | [phone] | | | +--------+ + + + [...]
--- OUTSIDE RECORDS SUMMARY | ~2019-03-05 | XMS | Encounter Summary ---
Demographics + + + | Address | [address] [place] [address] | | | [place] [address] | + + + | Home Phone | | + + + | Preferred Language | Unknown | + + + | Marital Status | | + + + | Restoration Affiliation | 1077 | + + + | Race | Unknown | + + + | Ethnic Group | Unknown | + + + Author + + + | Author | [facility] | | | and Tonoana | + + + | Organization | [facility] | | | and [...] Team Providers + +------+ + | Care Construction Job Cost Estimator Name | Role | Phone | + +------+ + PCP | Unavailable | + +------+ + Encounter Details +--------+ + + + + | Date | Type | Department | Care Team | Description | +--------+ + + + + | 08/03/ | Hospital | [facility] | [place] | | | 2008 | Encounter | MED CTR EMERGENCY | Annamarie Rhoades MD [address] | | | | | [address] | [facility] | | | | | [place] | [place] [address] | | | | | [address] | [phone] | | | | | [phone] | | | +--------+ + + + [...]
--- OUTSIDE RECORDS SUMMARY | ~2019-03-05 | XMS | Encounter Summary ---
Demographics + + + | Address | [address] [place] [address] | | | [place] [address] | + + + | Home Phone | | + + + | Preferred Language | Unknown | + + + | Marital Status | | + + + | Rastafari Affiliation | 1077 | + + + | Race | Unknown | + + + | Ethnic Group | Unknown | + + + Author + + + | Author | [facility] | | | and Tonoana | + + + | Organization | [facility] | | | and Tonoana | [...] Team Providers + +------+ + | Care Diamond Sizer And Grader Name | Role | Phone | + +------+ + PCP | Unavailable | + +------+ + Encounter Details +--------+ + + + + | Date | Type | Department | Care Team | Description | +--------+ + + + + | 01/13/ | Hospital | [place] | Vic Pereira, | | | 2004 | Encounter | MED CTR LABORATORY | [address] [place] [address] | | | | | [address] | [place] | | | | | [place] | [address] | | | | | [address] | | | | | | [phone] | | | +--------+ + + + [...]
--- OUTSIDE RECORDS SUMMARY | ~2019-03-05 | XMS | Encounter Summary ---
Demographics + + + | Address | [address] [place] [address] | | | [place] [address] | + + + | Home Phone | | + + + | Preferred Language | Unknown | + + + | Marital Status | | + + + | Voodoo Affiliation | 1077 | + + + | Race | Unknown | + + + | Ethnic Group | Unknown | + + + Author + + + | Author | [facility] | | | and Tonoana | + + + | Organization | [facility] | | | and Tonoana [...] Team Providers + +------+ + | Care Concrete Smoother Name | Role | Phone | + [...] | MED CTR EXTERNAL | MD Tara [address] | | | | | IMAGING | Renae PINK | | | | | [phone] | [place] [address] | | +--------+ + + + + [...]
--- OUTSIDE RECORDS SUMMARY | ~2019-03-05 | XMS | Encounter Summary ---
Demographics + + + | Address | [address] [place] [address] | | | [place] [address] | + + + | Home Phone | | + + + | Preferred Language | Unknown | + + + | Marital Status | | + + + | Gnosticism Affiliation | 1077 | + + + | Race | Unknown | + + + | Ethnic Group | Unknown | + + + Author + + + | Author | [facility] | | | and Tonoana | + + + | Organization | [facility] | | | and [...] Team Providers + +------+ + | Care Ergonomic Specialist Name | Role | Phone | + [...] [place] | | | | | [address] | [address] | | | | | [phone] | | | +--------+ + + + [...]
--- OUTSIDE RECORDS SUMMARY | ~2019-03-05 | XMS | Encounter Summary ---
Demographics + + + | Address | [address] [place] [address] | | | [place] [address] | + + + | Home Phone | | + + + | Preferred Language | Unknown | + + + | Marital Status | | + + + | Mormon Affiliation | 1077 | + + + | Race | Unknown | + + + | Ethnic Group | Unknown | + + + Author + + + | Author | [facility] | | | and Tonoana | + + + | Organization | [facility] | | | and Tonoana [...] Team Providers + +------+ + | Care Cost Recorder Name | Role | Phone | + +------+ + PCP | Unavailable | + +------+ + Encounter Details +--------+ + + + + | Date | Type | Department | Care Team | Description | +--------+ + + + + | 01/03/ | Hospital | [facility] | Vic Pereira, | | | 2001 | Encounter | MED CTR XRAY [address] | [address] | | | | | [address] | [place] | | | | | [place] [address] | [address] | | | | | [phone] | | | +--------+ + + + [...]
--- OUTSIDE RECORDS SUMMARY | ~2019-03-05 | XMS | Encounter Summary ---
Demographics + + + | Address | [address] [place] [address] | | | [place] [address] | + + + | Home Phone | | + + + | Preferred Language | Unknown | + + + | Marital Status | | + + + | Adventist Affiliation | 1077 | + + + | Race | Unknown | + + + | Ethnic Group | Unknown | + + + Author + + + | Author | [facility] | | | and Tonoana | + + + | Organization | [facility] | | | and [...] Team Providers + +------+ + | Care Shore Man Name | Role | Phone | + +------+ + PCP | Unavailable | + +------+ + Encounter Details +--------+ + + + + | Date | Type | Department | Care Team | Description | +--------+ + + + + | 12/14/ | Hospital | [facility] | Vic Pereira, | | | 2001 | Encounter | MED CTR LABORATORY | [address] [place] [address] | | | | | [address] | [place] | | | | | [place] | [address] | | | | | [address] | | | | | | [phone] | | | +--------+ + + + [...]
--- OUTSIDE RECORDS SUMMARY | ~2019-03-05 | XMS | Encounter Summary ---
Demographics + + + | Address | [address] [place] [address] | | | [place] [address] | + + + | Home Phone [...] | Author | [facility] | | | and Tonoana | + + + | Organization | [facility] | | | and Tonoana [...] Providers + +------+ + | Care Supervisor Word Processing Name | Role | Phone | + +------+ + PCP | Unavailable | + +------+ + Encounter Details +--------+ + + + + | Date | Type | Department | Care Team | Description | +--------+ + + + + | 11/06/ | Hospital | [facility] | Vic Pereira, | | | 1998 | Encounter | MED CTR GENERIC OP | [address] [facility] | | | | | CONV DEPT [address] | [place] | | | | | [address] [place], | [address] | | | | | [place] [address] | | | | | | [phone] | | | +--------+ + + + [...]
--- OUTSIDE RECORDS SUMMARY | ~2019-03-05 | XMS | Encounter Summary ---
Demographics + + + | Address | [address] [place] [address] | | | [place] [address] | + + + | Home Phone | | + + + | Preferred Language | Unknown | + + + | Marital Status | | + + + | Buddhism Affiliation | 1077 | + + + | Race | Unknown | + + + | Ethnic Group | Unknown | + + + Author + + + | Author | [facility] | | | and Tonoana | + + + | Organization | [facility] | | | and [...] Team Providers + +------+ + | Care Babysitter Name | Role | Phone | + [...] Cuff | | | | [address] | [address] [place] | Repair, Subacromial | | | | [place] | [address] | Decompression, | | | | [address] | [phone] | Distal Clavical | | | | [phone] | | Excision, Biceps | | | [...] encounter Discharge Instructions Instructions Martha Chen - 08/16/2014[facility] Post-op Instructions - Shoulder Surgery The following instructions are meant to guide you following any shoulder surgery until your first post-operative visit 7-12 days later. For any problems or questions, please call our office at [phone], Wednesday through Wednesday, 9:00 am - 5:00 [...] that you may have received from the [facility], advice from friends, family members, ecclesKrushtical leaders, grocery store clerks, shannan farnsworth, Alena, Dr. Quintero, Dr. Renee, sports heroes, etc. If unsure, please call our office. Thank you, Sam Toussaint D.O. [facility] [address] [place] [address] documented in this encounter Medications at Time [...] | | Other | | PRN, Starting [facility] 08/16/14 at | | 15 10:35 | [...]
--- OUTSIDE RECORDS SUMMARY | ~2019-03-05 | XMS | Encounter Summary ---
Demographics + + + | Address | [address] [place] [address] | | | [place] [address] | + + + | Home Phone | | + + + | Preferred Language | Unknown | + + + | Marital Status | | + + + | Episcopal Affiliation | 1077 | + + + | Race | Unknown | + + + | Ethnic Group | Unknown | + + + Author + + + | Author | [facility] | | | and Tonoana | + + + | Organization | [facility] | | | and Tonoana [...] Team Providers + +------+ + | Care Community Marketing Manager Name | Role | Phone | + +------+ + PCP | Unavailable | + +------+ + Encounter Details +--------+ + + + + | Date | Type | Department | Care Team | Description | +--------+ + + + + | 01/13/ | Hospital | [facility] | Vic Pereira, | | | 2004 | Encounter | MED CTR LABORATORY | [address] [place] [address] | | | | | [address] | [place] | | | | | [place] | [address] | | | | | [address] | | | | | | [phone] | | | +--------+ + + + [...]
--- OUTSIDE RECORDS SUMMARY | ~2019-03-05 | XMS | Encounter Summary ---
Demographics + + + | Address | [address] [place] [address] | | | [place] [address] | + + + | Home Phone | | + + + | Preferred Language | Unknown | + + + | Marital Status | | + + + | Latter-Day Affiliation | 1077 | + + + | Race | Unknown | + + + | Ethnic Group | Unknown | + + + Author + + + | Author | [facility] | | | and Tonoana | + + + | Organization | [facility] | [...] Team Providers + +------+ + | Care Business Development Analyst Name | Role | Phone | + +------+ + | Stephane Thurman MD | PCP | | + +------+ + Encounter Details +--------+ + + + + | Date | Type | Department | Care Team | Description | +--------+ + + + + | 08/16/ | Hospital | [facility] | Sam Toussaint | | | 2014 | Encounter | MED CTR OR INTRA OP | J, DO [address] | | | | | [address] | [address] [place] | | | | | [place] | [address] | | | | | [address] | [phone] | | | | | [phone] | | | +--------+ + + + [...] encounter Discharge Instructions Instructions Martha Chen - 08/16/2014[facility] Post-op Instructions - Shoulder Surgery The following instructions are meant to guide you following any shoulder surgery until your first post-operative visit 7-12 days later. For any problems or questions, please call our office at [phone], Wednesday through Wednesday, 9:00 am - 5:00 [...] view hospital, advice from friends, family members, ecclesResolvertical leaders, grocery store clerks, shannan farnsworth, Alena, Dr. Quintero, Dr. Renee, sports heroes, etc. If unsure, please call our office. Thank you, Sam Toussaint D.O. [facility] [address] [place] [address], [place] [phone] documented in this encounter Medications at Time [...]
--- OUTSIDE RECORDS SUMMARY | ~2019-03-05 | XMS | Encounter Summary ---
Demographics + + + | Address | [address] [place] [address] | | | [place] [address] | + + + | Home Phone [...] + | Author | [facility] | | | and [place]ono[place] | + + + | Organization | [facility] | | | and Tonoana [...] Team Providers + +------+ + | Care Finance Business Partner Name | Role | Phone | + +------+ + PCP | Unavailable | + +------+ + Encounter Details +--------+ + + + + | Date | Type | Department | Care Team | Description | +--------+ + + + + | 12/21/ | Hospital | [facility] | Vic Pereira, | | | 2001 | Encounter | MED CTR MP INTRA OP | [address] [facility] | | | | | [address] | [place] | | | | | [place] | [address] | | | | | [address] | | | | | | [phone] | | | +--------+ + + + [...]
--- OUTSIDE RECORDS SUMMARY | ~2019-03-05 | XMS | Clinical Summary ---
Demographics + + + | Address | [address] [place] [address] | | | [place] [address] | + + + | Home Phone | | + + + | Preferred Language | Unknown | + + + | Marital Status | | + + + | Rastafarian Affiliation | 1077 | + + + | Race | Unknown | + + + | Ethnic Group | Unknown | + + + Author + + + | Author | [facility] | | | and [place]ono[place] | + + + | Organization | [facility] | | | and [...] Team Providers + +------+ + | Care White Work Cleaner Name | Role | Phone | [...] 3 x 38 Promus RCA | | STEAM HAMMER OPERATOR treated with three 4 mm Promus JERED using ADR. | |04/26/14: LAD JERED | | | |05/02/15: LAD restenosis treated with a 3 x 38 Promus | | RCA STEAM HAMMER OPERATOR treated with three 4 mm Promus JERED [...] + +------+--------+ +--------+--------+--------+ | Sut Jori Imp [id number] | | Right: | [employer] | | 04/27/ | AR-260 | | - [id number]: Qty: 1 | | | - ARTX | | 2017 | 0SBS-5 | | on 08/16/2014 by Norbert, | | Should | | | | / | | Sam Schultz DO at [facility] | | er | | | | /[id number] | | [facility] | | | | | | 74 | | CENTER | | | | | | | + +------+--------+ +--------+--------+--------+ | [place] Sut Bio Pushlok 3.5x19 | | Right: | [employer] | | 03/27/ | AR-192 | | - [id number]: Qty: 1 | | | - ARTX | | 2016 | 6B / | | on 08/16/2014 by Norbert, | | Should | | | | /[id number] | | Sam Schultz DO at [facility] | | er | | | | 07 | | [facility] | | | | | | | [...] + +--------+ +--------+ +---------+--------+ | [employer] | UNITED | [id number] | 11/07/19 | [phone] | | Indemn | | | OF | | 16-Pre | 0 | | ity | | | [employer] | | sent | | | | | | MDCR | | | | | | | | SUPPL | | | | | | + +--------+ +--------+ +---------+--------+ | MEDICARE | MEDICA | [id number] | | [phone] | | Medica | [...] | | al/Fam | | 1941 | [phone] | [place] | | | mitul | | | 3 (Home) | [address] | + +--------+ +--------+ + + Advance Directives + + + + + | Type | Date Recorded | Patient | Explanation | | | | Occupancy Specialist | | + + + + + | Power of | | | | | Packing House Supervisor | | | | + + + [...]
--- OUTSIDE RECORDS SUMMARY | ~2019-03-05 | XMS | Encounter Summary ---
Demographics + + + | Address | [address] [place] [address] | | | [place] [address] | + + + | Home Phone | | + + + | Preferred Language | Unknown | + + + | Marital Status | | + + + | Episcopalian Affiliation | 1077 | + + + | Race | Unknown | + + + | Ethnic Group | Unknown | + + + Author + + + | Author | [facility] | | | and [place]ono[place] | + + + | Organization | [facility] | | | and [...] Team Providers + +------+ + | Care Waxing Machine Operator Name | Role | Phone [...] | | thickening | [address] | [place], | | | | | | [place], | [place] [address] | | | | | | [place] [address] | Phone: | | | | | | Phone: | [phone] | | | | | | [phone] | Fax: | | | | | | Fax: | [phone] | | | | | | [phone] | | +--------+--------+ + + + + [...] | thickening (Primary | | | | [place], [place] | [place], [place] | Dx); Prostate cancer | | | | [address] | [address] | (HCC); Incomplete | | | | [phone] | | bladder emptying | +--------+---------+ + [...] can go home the same day. The Call[facility] provider uses a needle to put tiny radioactive seeds into the prostate gland. The needle i s guided using images from a transrectal ultrasound. Temporary seeds.Temporary seeds release a single high dose of radiation (HDR). The [facility] providerputs small tubes (catheters) into the [...] with your healthcare team. Date Last Reviewed: 08/06/201619990697-9629 [employer]. [address] [place] [address], [place] [address]. All righ ts reserved. This information is [...] Biceps Tenotomy; Surgeon: Sam Toussaint DO; Location: [facility] MAIN OR TONSILLECTOMY AND ADENOIDECTOMY 51 [...] PSA results from PCP and/or [facility] and/or [facility] and/or [facility]. (Nayely hutchinson reports he had a PSA of 0.5 in 2018). (Unable to obtain any data from Dr. Thurman, as angela bond is retired) Please obtain last chemistry panel from [facility]. I will ask for the written ultrasound report (June 2017) from [facility] which reported bladder wall thickening. I [...] have not thoroughly proofread this note, and contour path tape mill operator errors are likely to occur. CC: Alma Delia Flannery [facility] CC: Ross Lewis MD Addendum: After [...] 1.001 - 1.030 | | | | [place], | | | | | | [facility]A, [...]
--- OUTSIDE RECORDS SUMMARY | ~2019-03-05 | XMS | Encounter Summary ---
Demographics + + + | Address | [address] [place] [address] | | | [place] [address] | + + + | Home Phone | | + + + | Preferred Language | Unknown | + + + | Marital Status | | + + + | Taoist Affiliation | 1077 | + + + | Race | Unknown | + + + | Ethnic Group | Unknown | + + + Author + + + | Author | [facility] | | | and [place]ono[place] | + + + | Organization | [facility] | | | and [...] Team Providers + +------+ + | Care Leather Stretcher Name | Role | Phone | + +------+ + PCP | Unavailable | + +------+ + Encounter Details +--------+ + + + + | Date | Type | Department | Care Team | Description | +--------+ + + + + | 01/03/ | Hospital | [facility] | Vic Pereira, | | | 2001 | Encounter | MED CTR XRAY [address] | MD [address] | | | | | [place] | [place] | | | | | [place] [address] | [address] | | | | | [phone] | | | +--------+ + + + [...]
--- OUTSIDE RECORDS SUMMARY | ~2019-03-05 | XMS | Encounter Summary ---
Demographics + + + | Address | [address] [place] [address] | | | [place] [address] | + + + | Home Phone | | + + + | Preferred Language | Unknown | + + + | Marital Status | | + + + | Hindu Affiliation | 1077 | + + + | Race | Unknown | + + + | Ethnic Group | Unknown | + + + Author + + + | Author | [facility] | | | and [place]ono[place] | + + + | Organization | [facility] | | | and [...] Team Providers + +------+ + | Care Beam Racker Name | Role | Phone | + +------+ + PCP | Unavailable | + +------+ + Encounter Details +--------+ + + + + | Date | Type | Department | Care Team | Description | +--------+ + + + + | 08/03/ | Hospital | [facility] | [place] | | | 2008 | Encounter | MED CTR EMERGENCY | Annamarie Rhoades MD [address] | | | | | [address] | [facility] | | | | | [place] | [place] [address] | | | | | [address] | [phone] | | | | | [phone] | | | +--------+ + + + [...]
--- OUTSIDE RECORDS SUMMARY | ~2019-03-05 | XMS | Encounter Summary ---
Demographics + + + | Address | [address] [place] [address] | | | [place] [address] | + + + | Home Phone | | + + + | Preferred Language | Unknown | + + + | Marital Status | | + + + | Catholic Affiliation | 1077 | + + + | Race | Unknown | + + + | Ethnic Group | Unknown | + + + Author + + + | Author | [facility] | | | and [place] | + + + | Organization | [facility] | | | and Tonoana [...] Team Providers + +------+ + | Care Cover Stripper Name | Role | Phone | + [...] | | | | | [address] | [address] | | | | | [place] | [place] [address] | | | | | [address] | [phone] | | | | | [phone] | | | +--------+ + + + + Anesthesia Record + + + + + | Procedure Name | Responsible | Anesthesia Start | Anesthesia Stop Time | | | Anesthesiologist | Time | | + + + + + | Right Shoulder | Tor Mercedahmet Monique, | 08/16/14 1012 | 08/16/14 1139 [...] +----+---+ + + | | 1 | [place] | | | | 0 | 43-degrees | | | | 2 | | | | | 6 | | | +----+---+ + + | | 1 | AN Bite | | | | 0 | Block | | | | 4 | | | | | 2 | | | +----+---+ + + | | 1 | [place] off | | | | 1 | [...] ONLY] | 08/16/14; 1345 | Martha M [place] | Martha M Gustavo | | | [...] | | | | | PRN, Starting [facility] 08/16/14 at | | AM PDT [...]
[~2019-03-05 13:09] MED LIST changes: +CEPHALEXIN500 MG PO; +OMEPRAZOLE20 MG PO
--- OUTSIDE RECORDS SUMMARY | 2019-03-05 13:12 | XMS ---
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 ERebekahDRebekah VISIT COUNT (12 MO.) [address] [facility] [address] [place] TOTAL 2 NOTE: Visits indicate total known visits. ED/UCC VISIT TRACKING (12 MO.) 03/05/2019 13:09 [facility] [place] TYPE: Emergency COMPLAINT: - NOSE BLEED 03/05/2019 03:47 [facility] [place] TYPE: Emergency COMPLAINT: - NOSE BLEED INPATIENT VISIT TRACKING (12 MO.) No inpatient visits to display in this time frame [email or web address]
== END 2019-03-05 16:15 | disposition home or self-care (01) ==
LOC: ED 13:09
DX: R04.0 Epistaxis (principal); I10 Essential (primary) hypertension; Z87.891 Personal history of nicotine dependence; Z88.0 Allergy status to penicillin; Z79.899 Other long term (current) drug therapy; Z79.82 Long term (current) use of aspirin; Z85.46 Personal history of malignant neoplasm of prostate
CPT/HCPCS: 36415; 85025; 99283

== ENCOUNTER 2021-09-11 14:25 | Emergency (ER) | payer MEDICARE, OTHER ==
[~2021-09-11] VITALS: Ht 175.3 cm; Wt 90.3 kg
[~2021-09-11 14:25] MED LIST changes: +ADULT ASPIRIN R81 MG PO; -ASPIRIN EC325 MG PO
[2021-09-11] MEDS ORDERED: FAMOTIDINE40 MG PO (15:17)
[2021-11-21] MEDS ORDERED: NITROSTAT0.4 MG SL (11:24)
[2021-11-21] MEDS ORDERED: SULFAMETHOXAZO1 EAC1 (11:25)
[2021-11-21] MEDS ORDERED: LISINOPRIL10 MG PO (11:27)
== END 2021-09-11 16:54 | disposition home or self-care (01) ==
LOC: ED 14:25
DX: R19.5 Other fecal abnormalities (principal); I10 Essential (primary) hypertension; K21.9 Gastro-esophageal reflux disease without esophagitis; Z87.891 Personal history of nicotine dependence; Z88.0 Allergy status to penicillin; Z79.899 Other long term (current) drug therapy; Z79.82 Long term (current) use of aspirin
CPT/HCPCS: 36415; 85025; 99284

== ENCOUNTER 2021-11-24 12:07 | Day surgery (SDC) | payer MEDICARE, OTHER ==
[~2021-11-24] VITALS: Ht 175.3 cm; Wt 89.0 kg
[~2021-11-24 12:07] MED LIST changes: +FAMOTIDINE40 MG PO; +NITROSTAT0.4 MG SL; +SULFAMETHOXAZO1 EAC1
--- NOTE | 2021-11-24 12:20 | NUR ---
both NARES SWABBED FOR COVID-19 WITHOUT COMPLICATION. SAMPLE TAKEN TO LAB.
--- NOTE | 2021-11-24 13:29 | NUR ---
PT CALL LIGHT ON. PT REQUESTS WARM BLANKETS. PT UPDATED ON LABS AND PLAN OF CARE. NO ADDITIONAL REQUESTS OR COMPLAINTS. CALL LIGHT WITHIN REACH. BED RAILS UP. PTS AT BEDSIDE.
--- NOTE | 2021-11-24 15:05 | NUR ---
11/24/21 1505 Alexandra Pike 1455 PT ARRIVED IN PACU SLEEPY WITH NO C/O'S. ABD SOFT AND PASSING FLATUS.
--- NOTE | 2021-11-26 09:48 | OR ---
[facility] [address] [place], [place] [address] Signed DATE OF OPERATION: 11/24/2021 SURGEON: Margarita Gorman MD PREOPERATIVE DIAGNOSIS: Persistent watery diarrhea (intermittent). POSTOPERATIVE DIAGNOSES: 1. Diverticular changes in sigmoid and left colon. 2. Mild cecitis. PROCEDURES: Total colonoscopy to cecum with biopsy of cecum. ANESTHESIA: Intravenous sedation, fentanyl 100 mcg and Versed 5 mg. INDICATIONS: This 81-year-old white man is well known to me from the past. He is a patient of Dr. Lewis. Notably, he had significant "dysentery" while serving in [employer] many years ago. He still continues to have episodic diarrhea. He tried Pepto-Bismol, which has been of no benefit. He has taken Imodium, which is somewhat beneficial. Last colonoscopy by me was in 2017. He was noted to have diverticular changes and four small polyps adenomatous. He is admitted at this time to undergo colonoscopy on the basis of his diarrhea and prior history of polyps. He understands the risks of bleeding, infection, and perforation related to colonoscopy and wished to proceed. FINDINGS: The prep was good. Complete colonoscopy was undertaken to the cecum. Passage beyond the hepatic flexure was slightly challenging requiring abdominal wall stabilization and so on. There were numerous diverticula of the sigmoid and left colon. There was no sign of actual proctitis. The cecum did appear mildly inflamed and was biopsied. There were no other findings of concern. There were no polyps. DESCRIPTION OF PROCEDURE: The patient was brought to the endoscopy suite and placed in lateral decubitus position given intravenous sedation to the point of slurred speech and nystagmus. Digital rectal examination was normal. An Olympus video colonoscope was passed into the rectum and manipulated throughout the Electronically Signed By: MARGARITA GORMAN MD 11/26/21 0948 PATIENT NAME: ELI HONG OPERATIVE REPORT DATE OF : 44 REPORT #: [id number] PHYSICIAN: MARGARITA GORMAN MD PCP: ROSS LEWIS MD REPORT IS CONFIDENTIAL AND NOT TO BE RELEASED WITHOUT AUTHORIZATION [facility] [address] [place], [place] [address] Signed colon noting diverticular change of the sigmoid and left colon. The scope was advanced beyond the transverse colon to the hepatic flexure. It was challenging to pass beyond this without assistance of abdominal wall stabilization and various withdrawal maneuvers, but ultimately the scope was passed to the cecum itself. The ileocecal valve and appendiceal orifice were normal, although there did appear to be some mild inflammation of the cecum. Biopsies were taken of the cecum. The scope was then withdrawn. Examination undertaken. There was no evidence of elina colitis elsewhere, certainly no cancer and no polyps. Diverticular were noted as previously described. Retroflexed view of the rectum was reasonably normal. Scope was removed, the patient was taken to the recovery room in good condition. CONCLUDING DIAGNOSIS: Mild cecitis and diverticulosis. PLAN: We will check pathology report to assess for possible occult colitis. We will prescribe Flagyl empirically 250 mg p.o. t.i.d. The relationship between his prior "dysentery" while serving overseas in [place] many decades ago and may not have some relation to his long-standing current episodic diarrhea problem. If his symptoms persist or recurred, he will let me know. Repeat colonoscopy in 10 years or sooner if symptoms should occur. MD KLAUS Delacruz/YAHAIRAL /[id number] cc: Ross Lewis MD Copies: ROSS LEWIS MD ~ Electronically Signed By: MARGARITA GORMAN MD 11/26/21 0948 PATIENT NAME: ELI HONG LUCIUS OPERATIVE REPORT DATE OF : 44 REPORT #: [id number] PHYSICIAN: MARGARITA GORMAN MD PCP: ROSS LEWIS MD REPORT IS CONFIDENTIAL AND NOT TO BE RELEASED WITHOUT AUTHORIZATION
--- NOTE | 2021-11-26 19:14 | PATH ---
[facility] [address] [place], [place] [address] Signed SPECIMEN(S): A CECUM BIOPSY SPECIMEN SOURCE: A. CECUM BIOPSY FINAL PATHOLOGIC DIAGNOSIS: Colon, cecum, biopsy: - Portions of congested colonic mucosa. COMMENT: The biopsy shows portions of architecturally normal colonic mucosa. There is mild hemorrhage in the lamina propria. There is no evidence of acute or chronic inflammation. There is no evidence of dysplasia. TWK:caw:C2NR MICROSCOPIC EXAMINATION: Histologic sections of all submitted blocks are examined by light microscopy. These findings, together with the gross examination, support the pathologic diagnosis. GROSS DESCRIPTION: The specimen, labeled "LG," per the requisition, "cecum biopsy," is received in formalin and consists of one andre soft tissue fragment that measures 0.2 cm in greatest dimension. The specimen is entirely submitted in cassette (A1). CA (under the direct supervision of a pathologist) The Gross Description was prepared using a voice recognition system. The report was reviewed for accuracy; however, sound-alike word errors, addition and/or deletions may occur. If there is any question about this report, please contact Client Services. PERFORMING LABORATORY: The technical component was performed by [email or web address], [address] [place] [address] (CLIA# [id number]). The professional interpretation was performed by [facility], [facility], [address] [place] [address] (CLIA#: [id number]). Diagnostician: Addy Landon MD Pathologist PATIENT NAME: ELI HONG PATHOLOGY DATE OF : 44 REPORT #: [id number] PHYSICIAN: [facility] PCP: LIZANDRO QUARLES MD REPORT IS CONFIDENTIAL AND NOT TO BE RELEASED WITHOUT AUTHORIZATION [address] [place], [place] [address] Signed Electronically Signed 11/26/2021 Copies: ~ PATIENT NAME: ELI HONG PATHOLOGY DATE OF : 44 REPORT #: [id number] PHYSICIAN: [facility] PCP: LIZANDRO QUARLES MD REPORT IS CONFIDENTIAL AND NOT TO BE RELEASED WITHOUT AUTHORIZATION
== END 2021-11-24 15:45 | disposition home or self-care (01) ==
LOC: OPS 12:07 → DS 12:14 → OPS 14:00 → DS 14:00 → OPS 15:45 → DS 12-01 14:00
PROVIDERS: ATTEND Surgery
PROC: 0DBH8ZX Excision of Cecum, Via Natural or Artificial Opening Endoscopic, Diagnostic (ICD-10-PCS; principal; 2021-11-24 14:00)
DX: K52.9 Noninfective gastroenteritis and colitis, unspecified (principal); K57.30 Diverticulosis of large intestine without perforation or abscess without bleeding; Z86.010 Personal history of colon polyps; K26.5 Chronic or unspecified duodenal ulcer with perforation; G89.18 Other acute postprocedural pain; I10 Essential (primary) hypertension; Z20.822 Contact with and (suspected) exposure to COVID-19; Z90.49 Acquired absence of other specified parts of digestive tract; Z79.01 Long term (current) use of anticoagulants; Z88.0 Allergy status to penicillin
CPT/HCPCS: 99153; C9803; G0500; J2250; J3010; J7121; U0003

== ENCOUNTER → 2022-11-15 | Emergency (ER) | payer MEDICARE, OTHER ==
[~2022-11-15] VITALS: Ht 175.3 cm; Wt 89.8 kg
[~2022-11-15] MED LIST changes: +LEVOTHYROXINE100 MCG PO
--- OUTSIDE RECORDS SUMMARY | ~2022-11-15 | XMS | Continuity of Care Document ---
Demographics + + + | Address | [address] | | | [place] [address] | + + + | Preferred Language | Unknown | + + + | Marital Status | | + + + | Advent Affiliation | Unknown | + + + | Race | White | + + + | Ethnic Group | Not or | + + + Author + + + | Author | [facility] | + + + | Organization | [facility] | + + + | Address | [address] | | | [place] [address] | + + + | Phone | | + + + Care Team Providers + + + + | Care Telephone Information Supervisor Name | Role | Phone | + + + + Unavailable | Unavailable | + + + + Unavailable | Unavailable | + + + + Unavailable | Unavailable | + + + + Unavailable | Unavailable | + + + + Unavailable | Unavailable | + + + + Allergies and Intolerances + + + + + + | date | description | facility | reaction | severity | + + + + + + | (no date) | | [facility] | (no reaction) | (no severity) | | | SULFAMETHOXAZOL | Group | | | | | E-TRIMETHOPRIM | Neurosurgery | | | + + + + + + | (no date) | | [facility] | (no reaction) | (no severity) | | | SULFAMETHOXAZOL | [facility] | | | | | E-TRIMETHOPRIM | Surgery | | | + + + + + + | (no date) | Hives | [facility] | (no reaction) | (no severity) | | | | Group | | | | | | Neurosurgery | | | + + + + + + | (no date) | Hives | [facility] | (no reaction) | (no severity) | | | | [facility] | | | | | | Surgery | | | + + + + + + | (no date) | | [facility] | (no reaction) | (no severity) | | | SULFAMETHOXAZOL | Group | | | | | E-TRIMETHOPRIM | Neurosurgery | | | + + + + + + | (no date) | | [facility] | (no reaction) | (no severity) | | | SULFAMETHOXAZOL | [facility] | | | | | E-TRIMETHOPRIM | Surgery | | | + + + + + + | (no date) | | [facility] | (no reaction) | (no severity) | | | SULFAMETHOXAZOL | Group | | | | | E-TRIMETHOPRIM | Neurosurgery | | | + + + + + + | (no date) | | [facility] | (no reaction) | (no severity) | | | SULFAMETHOXAZOL | [facility] | | | | | E-TRIMETHOPRIM | Surgery | | | + + + + + + | (no date) | | [facility] | (no reaction) | (no severity) | | | SULFAMETHOXAZOL | Group | | | | | E-TRIMETHOPRIM | Neurosurgery | | | + + + + + + | (no date) | | [facility] | (no reaction) | (no severity) | | | SULFAMETHOXAZOL | [facility] | | | | | E-TRIMETHOPRIM | Surgery | | | + + + + + + | (no date) | | [facility] | (no reaction) | (no severity) | | | SULFAMETHOXAZOL | Group | | | | | E-TRIMETHOPRIM | Neurosurgery | | | + + + + + + | (no date) | | [facility] | (no reaction) | (no severity) | | | SULFAMETHOXAZOL | [facility] | | | | | E-TRIMETHOPRIM | Surgery | | | + + + + + + | (no date) | TAMSULOSIN | [facility] | (no reaction) | (no severity) | | | | Group | | | | | | Neurosurgery | | | + + + + + + | (no date) | TAMSULOSIN | [facility] | (no reaction) | (no severity) | | | | [facility] | | | | | | Surgery | | | + + + + + + | (no date) | | [facility] | (no reaction) | (no severity) | | | SULFAMETHOXAZOL | Group | | | | | E-TRIMETHOPRIM | Neurosurgery | | | + + + + + + | (no date) | | [facility] | (no reaction) | (no severity) | | | SULFAMETHOXAZOL | [facility] | | | | | E-TRIMETHOPRIM | Surgery | | | + + + + + + | (no date) | | [facility] | (no reaction) | (no severity) | | | SULFAMETHOXAZOL | Group | | | | | E-TRIMETHOPRIM | Neurosurgery | | | + + + + + + | (no date) | | [facility] | (no reaction) | (no severity) | | | SULFAMETHOXAZOL | [facility] | | | | | E-TRIMETHOPRIM | Surgery | | | + + + + + + | (no date) | | [facility] | (no reaction) | (no severity) | | | SULFAMETHOXAZOL | Group | | | | | E-TRIMETHOPRIM | Neurosurgery | | | + + + + + + | (no date) | | [facility] | (no reaction) | (no severity) | | | SULFAMETHOXAZOL | [facility] | | | | | E-TRIMETHOPRIM | Surgery | | | + + + + + + | (no date) | | [facility] | (no reaction) | (no severity) | | | SULFAMETHOXAZOL | Group | | | | | E-TRIMETHOPRIM | Neurosurgery | | | + + + + + + | (no date) | | [facility] | (no reaction) | (no severity) | | | SULFAMETHOXAZOL | [facility] | | | | | E-TRIMETHOPRIM | Surgery | | | + + + + + + | (no date) | | [facility] | (no reaction) | (no severity) | | | SULFAMETHOXAZOL | Group | | | | | E-TRIMETHOPRIM | Neurosurgery | | | + + + + + + | (no date) | | [facility] | (no reaction) | (no severity) | | | SULFAMETHOXAZOL | [facility] | | | | | E-TRIMETHOPRIM | Surgery | | | + + + + + + | (no date) | TAMSULOSIN | [facility] | (no reaction) | (no severity) | | | | Group | | | | | | Neurosurgery | | | + + + + + + | (no date) | TAMSULOSIN | [facility] | (no reaction) | (no severity) | | | | [facility] | | | | | | Surgery | | | + + + + + + | (no date) | Mild | [facility] | (no reaction) | (no severity) | | | | [facility] | | | + + + + + + | (no date) | Rash | [facility] | (no reaction) | (no severity) | | | | [facility] | | | + + + + + + | (no date) | | [facility] | (no reaction) | (no severity) | | | SULFAMETHOXAZOL | Group | | | | | E-TRIMETHOPRIM | Neurosurgery | | | + + + + + + | (no date) | | [facility] | (no reaction) | (no severity) | | | SULFAMETHOXAZOL | [facility] | | | | | E-TRIMETHOPRIM | Surgery | | | + + + + + + | (no date) | PENICILLINS | [facility] | (no reaction) | (no severity) | | | | Group | | | | | | Neurosurgery | | | + + + + + + | (no date) | PENICILLINS | [facility] | (no reaction) | (no severity) | | | | [facility] | | | | | | Surgery | | | + + + + + + | (no date) | Anaphylaxis | [facility] | (no reaction) | (no severity) | | | | Group | | | | | | Neurosurgery | | | + + + + + + | (no date) | Anaphylaxis | [facility] | (no reaction) | (no severity) | | | | [facility] | | | | | | Surgery | | | + + + + + + | (no date) | | [facility] | (no reaction) | (no severity) | | | [facility] | Group | | | | | E-TRIMETHOPRIM | Neurosurgery | | | + + + + + + | (no date) | | [facility] | (no reaction) | (no severity) | | | SULFAMETHOXAZOL | [facility] | | | | | E-TRIMETHOPRIM | Surgery | | | + + + + + + | (no date) | | [facility] | (no reaction) | (no severity) | | | SULFAMETHOX[facility] | Group | | | | | E-TRIMETHOPRIM | Neurosurgery | | | + + + + + + | (no date) | | [facility] | (no reaction) | (no severity) | | | SULFAMETHOXAZOL | [facility] | | | | | E-TRIMETHOPRIM | Surgery | | | + + + + + + | (no date) | | [facility] | (no reaction) | (no severity) | | | SUL[facility]AM[facility]OX[facility] | Group | | | | | E-TRIMETHOPRIM | Neurosurgery | | | + + + + + + | (no date) | | [facility] | (no reaction) | (no severity) | | | SULFAMETHOXAZOL | [facility] | | | | | E-TRIMETHOPRIM | Surgery | | | + + + + + + | (no date) | Penicillin | [facility] | (no reaction) | (no severity) | | | | [facility] | | | + + + + + + | (no date) | Penicillin | [facility] | (no reaction) | (no severity) | | | | [facility] | | | + + + + + + | (no date) | TAMSULOSIN | [facility] | (no reaction) | (no severity) | | | | Group | | | | | | Neurosurgery | | | + + + + + + | (no date) | TAMSULOSIN | [facility] | (no reaction) | (no severity) | | | | [facility] | | | | | | Surgery | | | + + + + + + | (no date) | TAMSULOSIN | [facility] | (no reaction) | (no severity) | | | | Group | | | | | | Neurosurgery | | | + + + + + + | (no date) | TAMSULOSIN | [facility] | (no reaction) | (no severity) | | | | [facility] | | | | | | Surgery | | | + + + + + + | (no date) | Penicillin | [facility] | (no reaction) | (no severity) | | | | [facility] | | | + + + + + + | (no date) | Other (See | [facility] | (no reaction) | (no severity) | | | Comments) | Group | | | | | | Neurosurgery | | | + + + + + + | (no date) | Other (See | [facility] | (no reaction) | (no severity) | | | Comments) | [facility] | | | | | | Surgery | | | + + + + + + | (no date) | Penicillin | [facility] | (no reaction) | (no severity) | | | | [facility] | | | | [facility] | | | + + + + + + Encounters No information. Functional Status No information. Immunizations No information. Medications + + + + | date | description | facility | + + + + | 2021-09-17 00:00 | METHYLCELLULOSE | [facility] | + + + + | 2021-11-24 00:00 | METHYLCELLULOSE | [facility] | + + + + | 2022-04-14 00:00 | METHYLCELLULOSE | [facility] | + + + + | 2021-09-17 00:00 | NITROGLYCERIN | [facility] | + + + + | 2021-11-24 00:00 | NITROGLYCERIN | [facility] | + + + + | 2022-04-14 00:00 | NITROGLYCERIN | [facility] | + + + + | 2021-09-17 00:00 | OMEPRAZOLE | [facility] | + + + + | 2021-11-24 00:00 | OMEPRAZOLE | [facility] | + + + + | 2022-04-14 00:00 | OMEPRAZOLE | [facility] | + + + + | 2021-09-17 00:00 | OMEPRAZOLE | [facility] | + + + + | 2021-11-24 00:00 | OMEPRAZOLE | [facility] | + + + + | 2022-04-14 00:00 | OMEPRAZOLE | [facility] | + + + + | 2021-11-24 00:00 | NITROGLYCERIN | [facility] | + + + + | 2022-04-14 00:00 | NITROGLYCERIN | [facility] | + + + + | 2017-07-25 00:00 | ACETAMINOPHEN | [facility] | + + + + | 2017-07-25 00:00 | ACETAMINOPHEN | [facility] | + + + + | 2017-07-25 00:00 | ACETAMINOPHEN | [facility] | + + + + | 2021-09-17 00:00 | FAMOTIDINE | [facility] | + + + + | 2021-11-24 00:00 | FAMOTIDINE | [facility] | + + + + | 2022-04-14 00:00 | FAMOTIDINE | [facility] | + + + + | 2021-09-17 00:00 | Aspirin | [facility] | + + + + | 2021-11-24 00:00 | Aspirin | [facility] | + + + + | 2022-04-14 00:00 | Aspirin | [facility] | + + + + | 2019-03-05 00:00 | CEPHALEXIN | [facility] | + + + + | 2019-03-05 00:00 | CEPHALEXIN | [facility] | + + + + | 2019-03-05 00:00 | CEPHALEXIN | [facility] | + + + + | 2021-09-17 00:00 | CLOPIDOGREL BISULFATE | [facility] | + + + + | 2021-11-24 00:00 | CLOPIDOGREL BISULFATE | [facility] | + + + + | 2022-04-14 00:00 | CLOPIDOGREL BISULFATE | [facility] | + + + + | 2021-04-21 00:00 | finasteride 5 mg oral | [facility] | | | tablet | Neurosurgery | + + + + | 2021-04-21 00:00 | finasteride 5 mg oral | [facility] | | | tablet | Surgery | + + + + | 2017-07-25 00:00 | FUROSEMIDE | [facility] | + + + + | 2017-07-25 00:00 | FUROSEMIDE | [facility] | + + + + | 2017-07-25 00:00 | FUROSEMIDE | [facility] | + + + + | 2021-09-17 00:00 | SENNOSIDES | [facility] | + + + + | 2021-11-24 00:00 | SENNOSIDES | [facility] | + + + + | 2022-04-14 00:00 | SENNOSIDES | [facility] | + + + + | 2021-09-17 00:00 | LISINOPRIL | [facility] | + + + + | 2021-11-24 00:00 | LISINOPRIL | [facility] | + + + + | 2022-04-14 00:00 | LISINOPRIL | [facility] | + + + + | 2021-08-07 00:00 | pantoprazole sodium 40 mg | [facility] | | | delayed release oral tablet | Neurosurgery | | | | | + + + + | 2021-08-07 00:00 | pantoprazole sodium 40 mg | [facility] | | | delayed release oral tablet | Surgery | | | | | + + + + | 2017-07-25 00:00 | SUCRALFATE | [facility] | + + + + | 2017-07-25 00:00 | SUCRALFATE | [facility] | + + + + | 2017-07-25 00:00 | SUCRALFATE | [facility] | + + + + | 2021-08-07 00:00 | asa 81 mg chewable tablet | [facility] | | | | Neurosurgery | + + + + | 2021-08-07 00:00 | asa 81 mg chewable tablet | [facility] | | | | Surgery | + + + + | 2017-07-25 00:00 | POTASSIUM CHLORIDE | [facility] | + + + + | 2017-07-25 00:00 | POTASSIUM CHLORIDE | [facility] | + + + + | 2017-07-25 00:00 | POTASSIUM CHLORIDE | [facility] | + + + + | 2021-09-17 00:00 | | [facility] | | | TELMISARTAN/HYDROCHLOROTHIA | | | | ZID | | + + + + | 2021-11-24 00:00 | | [facility] | | | TELMISARTAN/HYDROCHLOROTHIA | | | | ZID | | + + + + | 2022-04-14 00:00 | | [facility] | | | TELMISARTAN/HYDROCHLOROTHIA | | | | ZID | | + + + + | 2020-05-14 00:00 | rosuvastatin calcium 20 mg | [facility] | | | oral tablet | Neurosurgery | + + + + | 2020-05-14 00:00 | rosuvastatin calcium 20 mg | [facility] | | | oral tablet | Surgery | + + + + | 2021-09-17 00:00 | ROSUVASTATIN CALCIUM | [facility] | + + + + | 2021-11-24 00:00 | ROSUVASTATIN CALCIUM | [facility] | + + + + | 2022-04-14 00:00 | ROSUVASTATIN CALCIUM | [facility] | + + + + | 2017-07-25 00:00 | METOPROLOL SUCCINATE | [facility] | + + + + | 2017-07-25 00:00 | METOPROLOL SUCCINATE | [facility] | + + + + | 2017-07-25 00:00 | METOPROLOL SUCCINATE | [facility] | + + + + | 2021-09-17 00:00 | METOPROLOL SUCCINATE | [facility] | + + + + | 2021-11-24 00:00 | METOPROLOL SUCCINATE | [facility] | + + + + | 2022-04-14 00:00 | METOPROLOL SUCCINATE | [facility] | + + + + | 2021-03-24 00:00 | [facility]ol succinate 25 mg | [facility] | | | 24hr extended release oral | Neurosurgery | | | tablet | | + + + + | 2021-03-24 00:00 | metoprolol succinate 25 mg | [facility] | | | 24hr extended release oral | Surgery | | | tablet | | + + + + | 2021-08-07 00:00 | metoprolol succinate 25 mg | [facility] | | | 24hr extended release oral | Neurosurgery | | | tablet | | + + + + | 2021-08-07 00:00 | metoprolol succinate 25 mg | [facility] | | | 24hr extended release oral | Surgery | | | tablet | | + + + + | 2021-04-03 00:00 | levothyroxine sodium 100 | [facility] | | | mcg oral tablet | Neurosurgery | + + + + | 2021-04-03 00:00 | levothyroxine sodium 100 | [facility] | | | mcg oral tablet | Surgery | + + + + | 2021-08-07 00:00 | levothyroxine sodium 100 | [facility] | | | mcg oral tablet | Neurosurgery | + + + + | 2021-08-07 00:00 | levothyroxine sodium 100 | [facility] | | | mcg oral tablet | Surgery | + + + + | 2021-09-17 00:00 | PRAVASTATIN SODIUM | [facility] | + + + + | 2021-09-17 00:00 | LEVOTHYROXINE SODIUM | [facility] | + + + + | 2021-11-24 00:00 | LEVOTHYROXINE SODIUM | [facility] | + + + + | 2022-04-14 00:00 | LEVOTHYROXINE SODIUM | [facility] | + + + + | 2021-08-07 00:00 | levothyroxine sodium 0.125 | [facility] | | | mg oral tablet | Neurosurgery | + + + + | 2021-08-07 00:00 | levothyroxine sodium 0.125 | [facility] | | | mg oral tablet | Surgery | + + + + Problems + + + + | date | description | facility | + + + + | 2017-06-29 00:00 | Acute gastroenteritis | [facility] | + + + + | 2017-06-29 00:00 | Acute gastroenteritis | [facility] | + + + + | 2017-06-29 00:00 | Acute gastroenteritis | [facility] | + + + + | 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 | | + + + + | 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 | | + + + + | 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 | | + + + + | 2017-07-12 00:00 | Gastrointestinal | [facility] | | | hemorrhage | | + + + + | 2017-07-12 00:00 | Gastrointestinal | [facility] | | | hemorrhage | | + + + + | 2017-07-12 00:00 | Gastrointestinal | [facility] | | | hemorrhage | | + + + + | 2017-07-12 00:00 | On aspirin at home | [facility] | + + + + | 2017-07-12 00:00 | On aspirin at home | [facility] | + + + + | 2017-07-12 00:00 | On aspirin at home | [facility] | + + + + | 2019-03-05 00:00 | Epistaxis | [facility] | + + + + | 2019-03-05 00:00 | Epistaxis | [facility] | + + + + | 2019-03-05 00:00 | Epistaxis | [facility] | + + + + | 2021-05-30 00:00 | flatback syndrome | [facility] | | | (disorder) | Surgery | + + + + | 2021-05-30 00:00 | degeneration of lumbar | [facility] | | | intervertebral disc | Surgery | | | (disorder) | | + + + + | 2021-05-30 00:00 | arthropathy of lumbar | [facility] | | | facet | Surgery | + + + + | 2021-05-30 00:00 | pseudoarthrosis of spine | [facility] | | | (disorder) | Surgery | + + + + | 2021-05-30 00:00 | history of lumbar fusion | [facility] | | | (situation) | Surgery | + + + + | 2021-05-30 00:00 | stenosis of lumbar | [facility] | | | vertebral foramen | Surgery | | | (disorder) | | + + + + | 2021-05-30 00:00 | Flat back syndrome, | [facility]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 | Surgery | + + + + | 2021-05-30 00:00 | Lumbar facet arthropathy | [facility] | | | | Surgery | + + + + | 2021-05-30 00:00 | Lumbar foraminal stenosis | [facility] | | | | Surgery | + + + + | 2021-05-30 00:00 | Lumbar degenerative disc | [facility] | | | disease | Surgery | + + + + | 2021-05-30 00:00 | Lumbar pseudoarthrosis | [facility] | | | | Surgery | + + + + | 2021-05-30 00:00 | S/P lumbar fusion | [facility] | | | | Surgery | + + + + | 2021-08-19 06:28 | Flatback syndrome, site | [facility] | | | unspecified | [facility] | + + + + | 2021-08-19 06:28 | 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[facility] | | | radiculopathy, lumbar | | | | region | | + + + + | 2021-08-19 06:28 | Spinal stenosis, lumbar | [facility] | | | region without neurogenic | [facility] | | | claudication | | + + + + | 2021-08-19 06:28 | Other intervertebral disc | [facility] | | | degeneration, lumbar region | [facility] | | | | | + + + + | 2021-08-19 06:28 | Unspecified fracture of | [facility] | | | unspecified lumbar [facility] | | | vertebra, subsequent | | | | encounter for fracture with | | | | nonunion | | + + + + | 2021-08-19 06:28 | Arthrodesis status | [facility] | | | | [facility] | + + + + | 2021-09-11 00:00 | Black stools | [facility] | + + + + | 2021-09-11 00:00 | Black stools | [facility] | + + + + | 2021-09-11 00:00 | Black stools | [facility] | + + + + | 2022-07-07 07:20 | OTHER INTERVERTEBRAL DISC | [facility] | | | DEGENERATION, LUMBAR REGION | | | | | | + + + + | 2022-07-07 07:20 | ARTHRODESIS STATUS | [facility] | + + + + Procedures + + + + | date | description | facility | + + + + | 2021-11-24 00:00 | Colonoscopy with biopsy of | [facility] | | | colon | | + + + + | 2021-11-24 00:00 | Colonoscopy with biopsy of | [facility] | | | colon | | + + + + Results/Labs +--------+--------+ +---------+--------+---------+ | test | date | facility | value | unit | notes | +--------+--------+ +---------+--------+---------+ + + | Result panel 1 | + + + + + +-------+---------+ + | | 2021-08-11 | [facility] | 113 | mg/dL | (missing) | | (unavailable | 15:33 | [facility] | | | | + + + +-------+---------+ + + + | Result panel 2 | + + + + + +-------+ + + | | 2021-08-11 | [facility] | 8.5 | (missing) | (missing) | | (unavailable | 15:33 | [facility] | | | | + + + +-------+ + + + + | Result panel 3 | + + + + + +-------+---------+ + | | 2021-08-11 | [facility] | 9.2 | mg/dL | (missing) | | (unavailable | 15:33 | [facility] | | | | + + + +-------+---------+ + + + | Result panel 4 | + + + + + +-------+ + + | | 2021-08-11 | [facility] | 6.8 | (missing) | (missing) | | (unavailable | 15:33 | [facility] | | | | + + + +-------+ + + + + | Result panel 5 | + + + + + +-------+ + + | | 2021-08-11 | [facility] | 3.3 | (missing) | (missing) | | (unavailable | 15:33 | [facility] | | | | + + + +-------+ + + + + | Result panel 6 | + + + + + +-------+ + + | | 2021-08-11 | [facility] | 3.5 | (missing) | (missing) | | (unavailable | 15:33 | [facility] | | | | + + + +-------+ + + + + | Result panel 7 | + + + + + +--------+ + + | | 2021-08-11 | [facility] | 0.94 | (missing) | (missing) | | (unavailable | 15:33 | [facility] | | | | + + + +--------+ + + + + | Result panel 8 | + + + + + +-------+ + + | | 2021-08-11 | [facility] | 0.6 | (missing) | (missing) | | (unavailable | 15:33 | [facility] | | | | + + + +-------+ + + + + | Result panel 9 | + + + + + +------+ + + | | 2021-08-11 | [facility] | 12 | (missing) | (missing) | | (unavailable | 15:33 | [facility] | | | | + + + +------+ + + + + | Result panel 10 | + + + + + +------+ + + | | 2021-08-11 | [facility] | 24 | (missing) | (missing) | | (unavailable | 15:33 | [facility] | | | | + + + +------+ + + + + | Result panel 11 | + + + + + +------+ + + | | 2021-08-11 | [facility] | 76 | (missing) | (missing) | | (unavailable | 15:33 | [facility] | | | | + + + +------+ + + + + | Result panel 12 | + + + + + +------+---------+ + | | 2021-08-11 | [facility] | 22 | mg/dL | (missing) | | (unavailable | 15:33 | [facility] | | | | + + + +------+---------+ + + + | Result panel 13 | + + + + + +--------+---------+ + | | 2021-08-11 | [facility] | 1.16 | mg/dL | (missing) | | (unavailable | 15:33 | [facility] | | | | + + + +--------+---------+ + + + | Result panel 14 | + + + + + + + + + | | 2021-08-11 | [facility] | > 60.00 | (missing) | (missing) | | (unavailable | 15:33 | [facility] | | | | + + + + + + + + + | Result panel 15 | + + + + + +---------+ + + | | 2021-08-11 | [facility] | 18.96 | (missing) | (missing) | | (unavailable | 15:33 | [facility] | | | | + + + +---------+ + + + + | Result panel 16 | + + + + + +-------+ + + | | 2021-08-11 | [facility] | 140 | (missing) | (missing) | | (unavailable | 15:33 | [facility] | | | | + + + +-------+ + + + + | Result panel 17 | + + + + + +-------+ + + | | 2021-08-11 | [facility] | 4.5 | (missing) | (missing) | | (unavailable | 15:33 | [facility] | | | | + + + +-------+ + + + + | Result panel 18 | + + + + + +-------+ + + | | 2021-08-11 | [facility] | 104 | (missing) | (missing) | | (unavailable | 15:33 | [facility] | | | | + + + +-------+ + + + + | Result panel 19 | + + + + + +------+ + + | | 2021-08-11 | [facility] | 32 | (missing) | (missing) | | (unavailable | 15:33 | [facility] | | | | + + + +------+ + + + + | Result panel 20 | + + + + + + + + + | | 2021-08-18 | [facility] | NEGATIVE | (missing) | (missing) | | (unavailable | 07:55 | [facility] | | | | + + + + + + + + + | Result panel 21 | + + + + + +-------+ + + | | 2021-09-11 | [facility] | 5.9 | (missing) | (missing) | | (unavailable | 15:28 | [facility] | | | | + + + +-------+ + + + + | Result panel 22 | + + + + + +--------+ + + | | 2021-09-11 | [facility] | 4.73 | (missing) | (missing) | | (unavailable | 15:28 | [facility] | | | | + + + +--------+ + + + + | Result panel 23 | + + + + + +--------+ + + | | 2021-09-11 | [facility] | 14.5 | (missing) | (missing) | | (unavailable | 15:28 | [facility] | | | | + + + +--------+ + + + + | Result panel 24 | + + + + + +--------+ + + | | 2021-09-11 | [facility] | 44.4 | (missing) | (missing) | | (unavailable | 15:28 | [facility] | [facility] | | | | + + + +--------+ + + + + | Result panel 25 | + + + + + +--------+ + + | | 2021-09-11 | [facility] | 94.0 | (missing) | (missing) | | (unavailable | 15:28 | [facility] | [facility] | | | | + + + +--------+ + + + + | Result panel 26 | + + + + + +--------+ + + | | 2021-09-11 | [facility] | 30.6 | (missing) | (missing) | | (unavailable | 15:28 | [facility] | | | | | ) | | [facility] | | | | + + + +--------+ + + + + | Result panel 27 | + + + + + +--------+ + + | | 2021-09-11 | [facility] | 32.5 | (missing) | (missing) | | (unavailable | 15:28 | [facility] | | | | + + + +--------+ + + + + | Result panel 28 | + + + + + +--------+ + + | | 2021-09-11 | [facility] | 14.4 | (missing) | (missing) | | (unavailable | 15:28 | [facility] | | | | + + + +--------+ + + + + | Result panel 29 | + + + + + +-------+ + + | | 2021-09-11 | [facility] | 146 | (missing) | (missing) | | (unavailable | 15:28 | [facility] | | | | + + + +-------+ + + + + | Result panel 30 | + + + + + +--------+ + + | | 2021-09-11 | [facility] | 63.6 | (missing) | (missing) | | (unavailable | 15:28 | [facility] | | | | + + + +--------+ + + + + | Result panel 31 | + + + + + +--------+ + + | | 2021-09-11 | [facility] | 23.4 | (missing) | (missing) | | (unavailable | 15:28 | [facility] | | | | + + + +--------+ + + + + | Result panel 32 | + + + + + +-------+ + + | | 2021-09-11 | [facility] | 9.7 | (missing) | (missing) | | (unavailable | 15:28 | [facility] | | | | + + + +-------+ + + + + | Result panel 33 | + + + + + +-------+ + + | | 2021-09-11 | [facility] | 2.6 | (missing) | (missing) | | (unavailable | 15:28 | [facility] | | | | + + + +-------+ + + + + | Result panel 34 | + + + + + +-------+ + + | | 2021-09-11 | [facility] | 0.7 | (missing) | (missing) | | (unavailable | 15:28 | [facility] | | | | + + + +-------+ + + + + | Result panel 35 | + + + + + + + + + | | 2021-11-24 | [facility] | NEGATIVE | (missing) | (missing) | | (unavailable | 12:20 | [facility] | | | | + + + + + + + Social History + + + + | date | description | facility | + + + + | 2021-05-14 00:00 | Smokes tobacco daily | [facility] | | | | Neurosurgery | + + + + | 2021-05-14 00:00 | Smokes tobacco daily | [facility] | | | | Surgery | + + + + Vital Signs + + + +---------+ | date | measurement | value | units | + + + +---------+ | 2021-05-14 00:00 | BP_diastolic | 62 | mmHg | + + + +---------+ | 2021-05-14 00:00 | BP_systolic | 106 | mmHg | + + + +---------+ | 2021-05-14 00:00 | heart_rate | 72 | /min | + + + +---------+ | 2021-05-14 00:00 | o2_saturation | 97 | % | + + + +---------+ | 2021-05-14 00:00 | weight_metric | 87.09 | kg | + + + +---------+ | 2021-05-14 00:00 | weight_standard | 192 | lb | + + + +---------+ | 2021-09-11 00:00 | BMI | 29.4 | kg/m2 | + + + +---------+ | 2021-09-11 00:00 | BP_diastolic | 75 | mmHg | + + + +---------+ | 2021-09-11 00:00 | BP_systolic | 120 | mmHg | + + + +---------+ | 2021-09-11 00:00 | heart_rate | 76 | /min | + + + +---------+ | 2021-09-11 00:00 | height_metric | 175.26 | cm | + + + +---------+ | 2021-09-11 00:00 | height_standard | 69 | in | + + + +---------+ | 2021-09-11 00:00 | o2_saturation | 95 | % | + + + +---------+ | 2021-09-11 00:00 | respiration_rate | 16 | /min | + + + +---------+ | 2021-09-11 00:00 | temperature_metric | 36.61 | C | | | | | | + + + +---------+ | 2021-09-11 00:00 | | 97.9 | F | | | temperature_standar | | | | | d | | | + + + +---------+ | 2021-09-11 00:00 | weight_metric | 90.26 | kg | + + + +---------+ | 2021-09-11 00:00 | weight_metric | 90.27 | kg | + + + +---------+ | 2021-09-11 00:00 | weight_standard | 199 | lb | + + + +---------+ | 2021-11-24 00:00 | BMI | 29.0 | kg/m2 | + + + +---------+ | 2021-11-24 00:00 | BP_diastolic | 63 | mmHg | + + + +---------+ | 2021-11-24 00:00 | BP_systolic | 99 | mmHg | + + + +---------+ | 2021-11-24 00:00 | heart_rate | 76 | /min | + + + +---------+ | 2021-11-24 00:00 | height_metric | 175.26 | cm | + + + +---------+ | 2021-11-24 00:00 | height_standard | 69 | in | + + + +---------+ | 2021-11-24 00:00 | o2_saturation | 92 | % | + + + +---------+ | 2021-11-24 00:00 | respiration_rate | 20 | /min | + + + +---------+ | 2021-11-24 00:00 | temperature_metric | 36.11 | C | | | | | | + + + +---------+ | 2021-11-24 00:00 | | 97 | F | | | temperature_standar | | | | | d | | | + + + +---------+ | 2021-11-24 00:00 | weight_metric | 89 | kg | + + + +---------+ | 2021-11-24 00:00 | weight_standard | 196.21 | lb | + + + +---------+"
--- OUTSIDE RECORDS SUMMARY | ~2022-11-15 | XMS | Continuity of Care Document ---
Demographics + + + | Address | [address] | | | [place] [address] | + + + | Preferred Language | Unknown | + + + | Marital Status | | + + + | Jain Affiliation | Unknown | + + + | Race | White | + + + | Ethnic Group | Not or | + + + Author + + + | Author | [facility] | + + + | Organization | [facility] | + + + | Address | [address] | | | [place] [address] | + + + | Phone | | + + + Care Team Providers + + + + | Care Byproducts Supervisor Name | Role | Phone | [...] + | 2021-09-17 00:00 | METHYLCELLULOSE | [facility] | + + + + | 2021-11-24 00:00 | METHYLCELLULOSE | [facility] | + + + + | 2022-04-14 00:00 | METHYLCELLULOSE | [facility] | + + + + | 2021-09-17 00:00 | NITROGLYCERIN | [facility] | + + + + | 2021-11-24 00:00 | NITROGLYCERIN | [facility] | + + + + | 2022-04-14 00:00 | NITROGLYCERIN | [facility] | + + + + | 2021-09-17 00:00 | OMEPRAZOLE | [facility] | + + + + | 2021-11-24 00:00 | OMEPRAZOLE | [facility] | + + + + | 2022-04-14 00:00 | OMEPRAZOLE | [facility] | + + + + | 2021-09-17 00:00 | OMEPRAZOLE | [facility] | + + + + | 2021-11-24 00:00 | OMEPRAZOLE | [facility] | + + + + | 2022-04-14 00:00 | OMEPRAZOLE | [facility] | + + + + | 2021-11-24 00:00 | NITROGLYCERIN | [facility] | + + + + | 2022-04-14 00:00 | NITROGLYCERIN | [facility] | + + + + | 2017-07-25 00:00 | ACETAMINOPHEN | [facility] | + + + + | 2017-07-25 00:00 | ACETAMINOPHEN | [facility] | + + + + | 2017-07-25 00:00 | ACETAMINOPHEN | [facility] | + + + + | 2021-09-17 00:00 | FAMOTIDINE | [facility] | + + + + | 2021-11-24 00:00 | FAMOTIDINE | [facility] | + + + + | 2022-04-14 00:00 | FAMOTIDINE | [facility] | + + + + | 2021-09-17 00:00 | Aspirin | [facility] | + + + + | 2021-11-24 00:00 | Aspirin | [facility] | + + + + | 2022-04-14 00:00 | Aspirin | [facility] | + + + + | 2019-03-05 00:00 | CEPHALEXIN | [facility] | + + + + | 2019-03-05 00:00 | CEPHALEXIN | [facility] | + + + + | 2019-03-05 00:00 | CEPHALEXIN | [facility] | + + + + | 2021-09-17 00:00 | CLOPIDOGREL BISULFATE | [facility] | + + + + | 2021-11-24 00:00 | CLOPIDOGREL BISULFATE | [facility] | + + + + | 2022-04-14 00:00 | CLOPIDOGREL BISULFATE | [facility] | + + + + | 2021-04-21 00:00 | finasteride 5 mg oral | [facility] | | | tablet | Neurosurgery | + + + + | 2021-04-21 00:00 | finasteride 5 mg oral | [facility] | | | tablet | Surgery | + + + + | 2017-07-25 00:00 | FUROSEMIDE | [facility] | + + + + | 2017-07-25 00:00 | FUROSEMIDE | [facility] | + + + + | 2017-07-25 00:00 | FUROSEMIDE | [facility] | + + + + | 2021-09-17 00:00 | SENNOSIDES | [facility] | + + + + | 2021-11-24 00:00 | SENNOSIDES | [facility] | + + + + | 2022-04-14 00:00 | SENNOSIDES | [facility] | + + + + | 2021-09-17 00:00 | LISINOPRIL | [facility] | + + + + | 2021-11-24 00:00 | LISINOPRIL | [facility] | + + + + | 2022-04-14 00:00 | LISINOPRIL | [facility] | + + + + | 2021-08-07 00:00 | pantoprazole sodium 40 mg | [facility] | | | delayed release oral tablet | Neurosurgery | | | | | + + + + | 2021-08-07 00:00 | pantoprazole sodium 40 mg | [facility] | | | delayed release oral tablet | Surgery | | | | | + + + + | 2017-07-25 00:00 | SUCRALFATE | [facility] | + + + + | 2017-07-25 00:00 | SUCRALFATE | [facility] | + + + + | 2017-07-25 00:00 | SUCRALFATE | [facility] | + + + + | 2021-08-07 00:00 | asa 81 mg chewable tablet | [facility] | | | | Neurosurgery | + + + + | 2021-08-07 00:00 | asa 81 mg chewable tablet | [facility] | | | | Surgery | + + + + | 2017-07-25 00:00 | POTASSIUM CHLORIDE | [facility] | + + + + | 2017-07-25 00:00 | POTASSIUM CHLORIDE | [facility] | + + + + | 2017-07-25 00:00 | POTASSIUM CHLORIDE | [facility] | + + + + | 2021-09-17 00:00 | | [facility] | | | TELMISARTAN/HYDROCHLOROTHIA | | | | ZID | | + + + + | 2021-11-24 00:00 | | [facility] | | | TELMISARTAN/HYDROCHLOROTHIA | | | | ZID | | + + + + | 2022-04-14 00:00 | | [facility] | | | TELMISARTAN/HYDROCHLOROTHIA | | | | ZID | | + + + + | 2020-05-14 00:00 | rosuvastatin calcium 20 mg | [facility] | | | oral tablet | Neurosurgery | + + + + | 2020-05-14 00:00 | rosuvastatin calcium 20 mg | [facility] | | | oral tablet | Surgery | + + + + | 2021-09-17 00:00 | ROSUVASTATIN CALCIUM | [facility] | + + + + | 2021-11-24 00:00 | ROSUVASTATIN CALCIUM | [facility] | + + + + | 2022-04-14 00:00 | ROSUVASTATIN CALCIUM | [facility] | + + + + | 2017-07-25 00:00 | METOPROLOL SUCCINATE | [facility] | + + + + | 2017-07-25 00:00 | METOPROLOL SUCCINATE | [facility] | + + + + | 2017-07-25 00:00 | METOPROLOL SUCCINATE | [facility] | + + + + | 2021-09-17 00:00 | METOPROLOL SUCCINATE | [facility] | + + + + | 2021-11-24 00:00 | METOPROLOL SUCCINATE | [facility] | + + + + | 2022-04-14 00:00 | METOPROLOL SUCCINATE | [facility] | + + + + | 2021-03-24 00:00 | metoprolol succinate 25 mg | [facility] | | | 24hr extended release [...] 2021-04-03 00:00 | levothyroxine sodium 100 | [facility] | | | mcg oral tablet | Neurosurgery | + + + + | 2021-04-03 00:00 | levothyroxine sodium 100 | [facility] | | | mcg oral tablet | Surgery | + + + + | 2021-08-07 00:00 | levothyroxine sodium 100 | [facility] | | | mcg oral tablet | Neurosurgery | + + + + | 2021-08-07 00:00 | levothyroxine sodium 100 | [facility] | | | mcg oral tablet | Surgery | + + + + | 2021-09-17 00:00 | PRAVASTATIN SODIUM | [facility] | + + + + | 2021-09-17 00:00 | LEVOTHYROXINE SODIUM | [facility] | + + + + | 2021-11-24 00:00 | LEVOTHYROXINE SODIUM | [facility] | + + + + | 2022-04-14 00:00 | LEVOTHYROXINE SODIUM | [facility] | + + + + | 2021-08-07 00:00 | levothyroxine sodium 0.125 | [facility] | | | mg oral tablet | Neurosurgery | + + + + | 2021-08-07 00:00 | levothyroxine sodium 0.125 | [facility] | | | mg oral tablet | Surgery | + + + + Problems + + + + | date | description | facility | + + + + | 2017-06-29 00:00 | Acute gastroenteritis | [facility] | + + + + | 2017-06-29 00:00 | Acute gastroenteritis | [facility] | + + + + | 2017-06-29 00:00 | Acute gastroenteritis | [facility] | + + + + | 2017-07-12 00:00 | 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 | | + + + + | 2017-07-12 00:00 | 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 | | + + + + | 2017-07-12 00:00 | 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 | | + + + + | 2017-07-12 00:00 | Gastrointestinal | [facility] | | | hemorrhage | | + + + + | 2017-07-12 00:00 | Gastrointestinal | [facility] | | | hemorrhage | | + + + + | 2017-07-12 00:00 | Gastrointestinal | [facility] | | | hemorrhage | | + + + + | 2017-07-12 00:00 | On aspirin at home | [facility] | + + + + | 2017-07-12 00:00 | On aspirin at home | [facility] | + + + + | 2017-07-12 00:00 | On aspirin at home | [facility] | + + + + | 2019-03-05 00:00 | Epistaxis | [facility] | + + + + | 2019-03-05 00:00 | Epistaxis | [facility] | + + + + | 2019-03-05 00:00 | Epistaxis | [facility] | + + + + | 2021-05-30 00:00 | flatback syndrome | [facility] | | | (disorder) | Surgery | + + + + | 2021-05-30 00:00 | degeneration of lumbar | [facility] | | | intervertebral disc | Surgery | | | (disorder) | | + + + + | 2021-05-30 00:00 | arthropathy of lumbar | [facility] | | | facet | Surgery | + + + + | 2021-05-30 00:00 | pseudoarthrosis of spine | [facility] | | | (disorder) | Surgery | + + + + | 2021-05-30 00:00 | history of lumbar fusion | [facility] | | | (situation) | Surgery | + + + + | 2021-05-30 00:00 | stenosis of lumbar | [facility] | | | vertebral foramen | Surgery | | | (disorder) | | + + + + | 2021-05-30 00:00 | Flat back syndrome, | [facility]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 | Surgery | + + + + | 2021-05-30 00:00 | Lumbar facet arthropathy | [facility] | | | | Surgery | + + + + | 2021-05-30 00:00 | Lumbar foraminal stenosis | [facility] | | | | Surgery | + + + + | 2021-05-30 00:00 | Lumbar degenerative disc | [facility] | | | disease | Surgery | + + + + | 2021-05-30 00:00 | Lumbar pseudoarthrosis | [facility] | | | | Surgery [...] | 2021-09-11 00:00 | Black stools | [facility] | + + + + | 2021-09-11 00:00 | Black stools | [facility] | + + + + | 2021-09-11 00:00 | Black stools | [facility] | + + + + | [...] 00:00 | Colonoscopy with biopsy of | [facility] | | | colon | | + + + + | 2021-11-24 00:00 | Colonoscopy with biopsy of | [facility] | | | colon | | [...] (missing) | | (unavailable | 15:28 | [facility] | | | | | ) | [...] 2021-05-14 00:00 | Smokes tobacco daily | [facility] | | | | Neurosurgery | + + + + | 2021-05-14 00:00 | Smokes tobacco daily | [facility] | | | | Surgery [...]
[2022-11-15 07:58] LABS: BASOPHILS 0.3 % (0-2); EOSINOPHILS 0.1 % (0-6); HEMATOCRIT 49.1 % (35.0-50.0); HEMOGLOBIN 15.9 g/dL (12.0-18.0); MCH 30.3 (27-36); MCHC 32.3 g/dl (30-36); MCV 93.9 fl (81-99); MONOCYTES 11.5 % (0-12); NEUTROPHILS 77.1 % (39-80); PLATELET COUNT 252 K/uL (140-440); RBC 5.22 M/ul (4.3-5.7)
[2022-11-15 08:20] LABS: ALBUMIN 3.5 g/dL (3.4-5.0); ALBUMIN/GLOBULIN RATIO 0.83 (1.1-2.4); ANION GAP 10.2 (7-21); BILIRUBIN, TOTAL 0.6 ng/dL (0.2-1.0); BUN/CREATININE RATIO 28.46 (6.0-28.6); CALCIUM 10.2 mg/dL (8.5-10.1); CREATININE, SERUM 1.37 mg/dL (0.70-1.30); POTASSIUM 5.2 mmol/L (3.5-5.1); PROTEIN, TOTAL 7.7 g/dL (6.4-8.2)
[2022-11-15 08:23] LABS: LACTIC ACID, BLOOD 2.3 mmol/L (0.4-2.0)
[2022-11-15 09:03] LABS: BASE EXCESS, BLOOD GAS -0.6 mmol/L (-2-2); HCO3, BLOOD GAS 26.9 mmol/L (22-26); O2 SATURATION, BLOOD GAS 99.4 % (95.0-100.0); PCO2, BLOOD GAS 53.1 mmHg (35-45); PH, BLOOD GAS 7.31 (7.35-7.45); TOTAL CO2, BLOOD GAS 28.5
[2022-11-15 09:17] LABS: BILIRUBIN, URINE NEGATIVE (negative); BLOOD/HGB, URINE MODERATE (Negative); KETONE, URINE NEGATIVE (Negative); LEUK ESTERASE, URINE NEGATIVE (negative); NITRITE, URINE NEGATIVE (negative); PH, URINE 5.5 (5-7)
[2022-11-15 09:30] LABS: CRYSTALS, URINE NONE SEEN (0-1+)
[2022-11-15 09:31] LABS: BACTERIA, URINE 2+ /hpf (negative); COLLECTION TYPE, URINE CLEAN CATCH; REFLEX CULTURE, URINE No (No)
[2022-11-15 11:10] LABS: INFLUENZA B NAA NEGATIVE (NEGATIVE); RESPIRATORY SYNCYTIAL VIR NAA NEGATIVE (NEGATIVE)
[2022-11-15 12:19] LABS: ANION GAP 12.4 (7-21); BUN/CREATININE RATIO 28.98 (6.0-28.6); CALCIUM 9.2 mg/dL (8.5-10.1); CREATININE, SERUM 1.38 mg/dL (0.70-1.30); POTASSIUM 5.4 mmol/L (3.5-5.1)
[2022-11-15 13:50] VITALS: BP 120/69
--- NOTE | 2022-11-16 05:58 | EKG ---
[facility] [address] [facility] [place] [address] Signed Atrial flutter with variable AV block Right bundle branch block Abnormal ECG When compared with ECG of 05-AUG-2021 13:47, Atrial flutter has replaced Sinus rhythm Vent. rate has increased BY 99 BPM Questionable change in QRS axis T wave inversion now evident in Inferior leads Confirmed by BERNADETTE CORONEL MD ([id number]) on 11/16/2022 5:58:17 AM Electronically Signed By: BERNADETTE CORONEL 11/16/22 [id number] PATIENT NAME: ELI HONG Electrocardiogram DATE OF : 44 PHYSICIAN: BERNADETTE CORONEL REPORT #: [id number] REPORT IS CONFIDENTIAL AND NOT TO BE RELEASED WITHOUT AUTHORIZATION
== END ==
LOC: ED 07:35
PROVIDERS: Student in an Organized Health Care Education/Training Program
DX: J96.91 Respiratory failure, unspecified with hypoxia (principal); U07.1 COVID-19; J18.9 Pneumonia, unspecified organism; I48.91 Unspecified atrial fibrillation; I10 Essential (primary) hypertension; Z88.0 Allergy status to penicillin; Z79.82 Long term (current) use of aspirin; Z79.890 Hormone replacement therapy; Z79.899 Other long term (current) drug therapy; Z87.891 Personal history of nicotine dependence; Z95.5 Presence of coronary angioplasty implant and graft
CPT/HCPCS: 36415; 36600; 70450; 71045; 71260; 71275; 72125; 80048; 80053; 81001; 82803; 83605; 83735; 83880; 84484; 85025; 87502; 93005; 93010; C9803; J0692; J2704; J3370; J7030; Q9967; U0002

== ENCOUNTER 2022-12-24 06:25 | Emergency (ER) | payer OTHER, MEDICARE ==
[~2022-12-24] VITALS: Ht 175.3 cm; Wt 89.8 kg
--- OUTSIDE RECORDS SUMMARY | ~2022-12-24 | XMS | Continuity of Care Document ---
Demographics + + + | Address | [address] | | | [place] [address] | + + + | Preferred Language | Unknown | + + + | Marital Status | Unknown | + + + | Voodoo Affiliation | Unknown | + + + | Race | White | + + + | Ethnic Group | Not or | + + + Author + + + | Author | [facility] | + + + | Organization | [facility] | + + + | Address | [address] | | | [place] [address] | + + + | Phone | | + + + Care Team Providers + + + + | Care Owner/Photographer Name | Role | Phone | + + + + Unavailable | Unavailable | + + + + Unavailable | Unavailable | + + + + Allergies No information. Encounters No information. Functional Status No information. Immunizations No information. Medications No information. Problems + + + + | date | description | facility | + + + + | 2022-11-15 16:36:12 | Acute respiratory failure | [facility] | | | with hypoxia | | + + + + | 2022-12-03 10:57:21 | Pneumonia due to | [facility] | | | coronavirus disease 2019 | | + + + + | 2022-12-03 10:57:21 | Acute respiratory failure | [facility] | | | with hypoxia | | + + + + | 2022-12-03 10:57:21 | Acute kidney failure, | [facility] | | | unspecified | | + + + + | 2022-12-03 10:57:21 | COVID-19 | [facility] | + + + + Procedures No information. Results/Labs No information. Social History +--------+ + + | date | description | facility | +--------+ + + Vital Signs No information."
[2022-12-24 06:41] LABS: MCHC 30.1 g/dl (30-36); MONOCYTES 6.6 % (0-12)
[2022-12-24 06:46] LABS: BASOPHILS 0.7 % (0-2); EOSINOPHILS 0.8 % (0-6); HEMATOCRIT 43.2 % (35.0-50.0); LYMPHOCYTES 25.6 % (24-44); MCH 30.1 (27-36); MCV 99.8 fl (81-99); NEUTROPHILS 66.3 % (39-80); PLATELET COUNT 224 K/uL (140-440); RBC 4.32 M/ul (4.3-5.7); RDW 18.3 (10.5-15.0)
[2022-12-24 06:48] LABS: HCO3, BLOOD GAS 24.5 mmol/L (22-26); PCO2, BLOOD GAS 56.4 mmHg (35-45); PH, BLOOD GAS 7.23 (7.35-7.45); PO2, BLOOD GAS 131 mmHg (80-100); TOTAL CO2, BLOOD GAS 26.5
[2022-12-24 06:49] LABS: O2 SATURATION, BLOOD GAS 99.4 % (95.0-100.0); OXYGEN RECEIVED, BLOOD GAS 100%
[2022-12-24 06:51] LABS: INR 1.46 (0.80-1.30); PROTIME 17.1 Sec (11.2-14.2)
[2022-12-24 06:58] LABS: ALBUMIN 2.7 g/dL (3.4-5.0); ALBUMIN/GLOBULIN RATIO 0.82 (1.1-2.4); ANION GAP 13.5 (7-21); BILIRUBIN, TOTAL 0.5 ng/dL (0.2-1.0); BUN/CREATININE RATIO 20.77 (6.0-28.6); CREATININE, SERUM 2.07 mg/dL (0.70-1.30); MAGNESIUM 2.1 mg/dL (1.8-2.4); POTASSIUM 4.5 mmol/L (3.5-5.1)
[2022-12-24 08:57] LABS: INFLUENZA B NAA NEGATIVE (NEGATIVE); RESPIRATORY SYNCYTIAL VIR NAA NEGATIVE (NEGATIVE)
[2022-12-24 09:27] VITALS: BP 126/79
--- NOTE | 2022-12-24 21:10 | EKG ---
[facility] [address] [facility] [place] [address] Signed Atrial flutter with variable AV block with premature ventricular or aberrantly conducted complexes Right bundle branch block Inferior infarct , age undetermined Abnormal ECG When compared with ECG of 15-NOV-2022 08:10, Inferior infarct is now present ST now depressed in Inferior leads T wave inversion now evident in Anterior leads Confirmed by Mane Shah MD () on 12/24/2022 9:10:26 PM Electronically Signed By: MANE SHAH MD 12/24/222109 PATIENT NAME: ELI HONG Electrocardiogram DATE OF : 44 PHYSICIAN: MANE SHAH MD REPORT #: [id number] REPORT IS CONFIDENTIAL AND NOT TO BE RELEASED WITHOUT AUTHORIZATION
--- NOTE | 2022-12-26 05:53 | EKG ---
[facility] [address] [facility] [place] [address] Signed Unusual P axis, possible ectopic atrial rhythm with premature atrial complexes Right bundle branch block Abnormal ECG Confirmed by BERNADETTE CORONEL MD ([id number]) on 12/26/2022 5:53:31 AM Electronically Signed By: BERNADETTE CORONEL 12/26/22 0553 PATIENT NAME: ELI HONG Electrocardiogram DATE OF : 44 PHYSICIAN: BERNADETTE CORONEL REPORT #: [id number] REPORT IS CONFIDENTIAL AND NOT TO BE RELEASED WITHOUT AUTHORIZATION
== END 2022-12-24 09:13 | disposition short-term general hospital (02) ==
LOC: ED 06:25
PROVIDERS: Family Medicine
DX: I46.9 Cardiac arrest, cause unspecified (principal); I48.91 Unspecified atrial fibrillation; I11.0 Hypertensive heart disease with heart failure; I50.9 Heart failure, unspecified; Z88.0 Allergy status to penicillin; Z79.890 Hormone replacement therapy; Z79.01 Long term (current) use of anticoagulants; Z87.891 Personal history of nicotine dependence; Z20.822 Contact with and (suspected) exposure to COVID-19
CPT/HCPCS: 36415; 36556; 36600; 71045; 80053; 82803; 83605; 83735; 84484; 85025; 85060; 85610; 87502; 92950; 93005; 93010; 99285-25; J0282; J2250; J3010; U0002